=== PATIENT | male | born 1935 | race African-American/Black ===

== ENCOUNTER 2017-05-22 10:59 | Outpatient (CLI) | payer MEDICARE, OTHER ==
[~2017-05-22 10:59] MED LIST: ALBUTEROL2.5 MG/3 M HHN; AMBIEN5 MG PO; ASPIRIN81 MG ORAL; BUDESONIDE0.5 MG/2 M HHN; COMBIVENT INH14.7 GM INH; COMBIVENT2 PUFFS INH; FERROUS SULFAT325 MG PO; GLUCOTROL XL5 MG PO; LEVAQUIN750 MG ORAL; NASONEX17 GM NASAL; OMEPRAZOLE20 M2 ORAL; OMEPRAZOLE20 M2 PO; PEPCID20 MG PO; PREDNISONE50 MG ORAL; SIMVASTATIN80 MG PO; SPIRIVA18 MCG INH; TRULICITY0.75 MG/0. SQ; TUDORZA PRESS400 MCG INH; VICTOZA 2-0.6 MG/0.1 SQ; astepro NS; brovana PO; daliresp PO
--- NOTE | 2017-05-22 12:25 | Diagnostic Imaging Report ---
Indication: Cough Comparison: 04/02/15 2 views of the chest obtained. Post disease and parenchymal scarring in the upper lobes again noted. Generalized hyperinflation is present. There is no change compared to baseline. The heart is normal in size. Bones are osteopenic. Impression: Bullous emphysema/COPD. No change
== END 2017-05-22 12:59 | disposition home or self-care (01) ==
LOC: RAD 10:59
DX: R05 Cough (principal); J44.9 Chronic obstructive pulmonary disease, unspecified; J43.9 Emphysema, unspecified; M85.80 Other specified disorders of bone density and structure, unspecified site
CPT/HCPCS: 71020

== ENCOUNTER 2017-11-19 14:31 | Outpatient (CLI) | payer MEDICARE, OTHER ==
--- NOTE | 2017-11-19 15:12 | Diagnostic Imaging Report ---
Indication: Reason For Exam: COUGH Technique: One view of the chest Comparison: 05/22/2017 Findings: Again demonstrated is extensive bilateral upper lobe scarring, architectural distortion, and bullous change. Bilateral right greater than left opacities appear somewhat more prominent on the current study, but this is probably due to technical differences. Suspect these are probably chronic due to COPD changes. No definite acute infiltrates. Normal heart size. Impression: Evidence of bullous COPD Right greater than left prominent interstitial opacities are probably on the basis of COPD/fibrosis changes; element of acute interstitial edema or infiltrate not completely excludable but less likely No focal airspace consolidation
== END 2017-11-19 16:31 | disposition home or self-care (01) ==
LOC: RAD 14:31
DX: R05 Cough (principal); J44.9 Chronic obstructive pulmonary disease, unspecified
CPT/HCPCS: 71046

== ENCOUNTER 2018-05-11 20:40 | Inpatient (IN) | payer MEDICARE, OTHER ==
[~2018-05-11] VITALS: Ht 177.8 cm; Wt 82.6 kg
[2018-05-11] MEDS ORDERED: Solu-MEDROL 125mg Inj IVP ONE (21:00)
[2018-05-11] MEDS ORDERED: Albuterol ud Inhalation HHN ONE (21:00)
[2018-05-11] MEDS ORDERED: Ipratropium 0.02% Inh Soln 2.5ml UD HHN ONE (21:00)
[2018-05-11 21:19] LABS: BASOPHILS % (AUTO) 1.2 % (0.0-2.0); EOSINOPHILS % (AUTO) 0.5 % (0.0-3.0); HEMATOCRIT 44.4 % (42.0-52.0); HEMOGLOBIN 14.4 G/DL (14.2-18.0); LYMPHOCYTES % (AUTO) 13.1 % (20.0-45.0); MEAN CORPUSCULAR VOLUME 89 FL (80-99); MONOCYTES % (AUTO) 6.6 % (1.0-10.0); NEUTROPHILS % (AUTO) 78.6 % (45.0-75.0); PLATELET COUNT 169 K/UL (150-450); RED BLOOD COUNT 4.99 M/UL (4.70-6.10); RED CELL DISTRIBUTION WIDTH 12.1 % (11.6-14.8); WHITE BLOOD COUNT 16.8 K/UL (4.8-10.8)
[2018-05-11] MEDS ORDERED: cefTRIAXone 1 GM in NS 55 ML IVPB ONE (21:30)
[2018-05-11 21:37] LABS: ANION GAP 9 mmol/L (5-15); BLOOD UREA NITROGEN 12 mg/dL (7-18); CALCIUM 9.6 MG/DL (8.5-10.1); CARBON DIOXIDE 28 MMOL/L (21-32); CHLORIDE 101 MMOL/L (98-107); CREATININE 1.2 MG/DL (0.55-1.30); POTASSIUM 4.3 MMOL/L (3.5-5.1); SODIUM 138 MMOL/L (136-145)
[2018-05-11 21:50] LABS: ALANINE AMINOTRANSFERASE 27 U/L (12-78); ALBUMIN 3.7 G/DL (3.4-5.0); ALBUMIN/GLOBULIN RATIO 0.8 (1.0-2.7); ALKALINE PHOSPHATASE 111 U/L (46-116); ASPARTATE AMINO TRANSFERASE 18 U/L (15-37); BILIRUBIN,TOTAL 0.3 MG/DL (0.2-1.0); CKMB 1.2 NG/ML (0.0-3.6); CREATINE KINASE 88 U/L (26-308)
--- NOTE | 2018-05-11 22:23 | Emergency Room Report ---
History of Present Illness General Chief Complaint: Dyspnea/Respdistress Source: Patient, Family Member Present Illness HPI This is an 82-year-old male who has a history of heavy smoking. He has a history of COPD and currently on oxygen at home. He presents with chief complaint of shortness of breath. Onset today. He also complaining of sore throat. No nausea no vomiting. No fever or chills. No chest pain. No relief with his oxygenation and inhalers. Worse with exertion. Better with rest. Allergies: Coded Allergies: No Known Allergies (Verified , 09/14/07) Patient History Past Medical History: see triage record, old chart reviewed, COPD Past Surgical History: other Pertinent Family History: none Social History: Denies: smoking - History of heavy smoking Immunizations: other Reviewed Nursing Documentation: PMH: Agreed; PSxH: Agreed Nursing Documentation-PMH Hx Cardiac Problems: Yes - hypertensive heart disease Hx Hypertension: Yes Hx Pacemaker: No - EMPHYSEMA Hx Asthma: Yes Hx COPD: Yes Hx Diabetes: Yes Hx Cancer: No Hx Gastrointestinal Problems: Yes Hx Neurological Problems: No Review of Systems Eye: Denies: eye pain, blurred vision ENT: Denies: ear pain, nose congestion, throat swelling Respiratory: Reports: cough, shortness of breath Cardiovascular: Denies: chest pain, palpitations Gastrointestinal: Denies: abdominal pain, diarrhea, nausea, vomiting Musculoskeletal: Denies: back pain, joint pain Skin: Denies: rash Neurological: Denies: headache, numbness Endocrine: Denies: increased thirst, increased urine Hematologic/Lymphatic: Denies: easy bruising All Other Systems: negative except mentioned in HPI Physical Exam Vital Signs Date Time Temp Pulse Resp B/P (MAP) Pulse Ox O2 Delivery O2 Flow Rate FiO2 05/11/18 20:42 98.8 119 22 142/71 89 Nasal Cannula 4.0 98.8 05/11/18 21:11 36 vitals with tachycardia and hypoxia Sp02 EP Interpretation: abnormal General Appearance: moderate distress, thin, Chronically Ill Head: normocephalic, atraumatic Eyes: bilateral eye PERRL, bilateral eye EOMI ENT: hearing grossly normal, normal pharynx Neck: full range of motion, supple, no meningismus Respiratory: chest non-tender, respiratory distress, decreased breath sounds, accessory muscle use, wheezing Cardiovascular #1: regular rate, rhythm, no murmur, tachycardia Gastrointestinal: normal bowel sounds, non tender, no mass, no organomegaly, no bruit, non-distended Musculoskeletal: back normal, gait/station normal, normal range of motion Neurologic: alert, oriented x3 Psychiatric: mood/affect normal Skin: warm/dry Procedures Critical Care Time Critical Care Time Critical care is mandated in this patient who presented with respiratory distress from COPD. Patient require my urgent intervention to attenuate the risks of respiratory collapse which may lead to cardiovascular collapse and . Critical care time is 35 minutes excluding any reportable procedure. Critical care time included evaluation, multiple reevaluation, looking at old charts, interpreting laboratory and diagnostic data, discussing case with patient and family and consultants, and charting. Medical Decision Making Diagnostic Impression: Primary Impression: Respiratory distress Additional Impression: COPD exacerbation ER Course Patient resents with respiratory distress secondary to COPD exacerbation. He required nebulizer treatment and I started antibiotics to cover for atypical pneumonia. He said he felt better. He still slightly dyspneic so will admit for further treatment and antibiotics and IV fluid. I discussed the case with Dr. Castillo who will admit for Dr. Beebe. Lab Results Impression labs with leukocytosis EKG Diagnostic Results Rate: tachycardiac Rhythm: NSR ST Segments: no acute changes Rhythm Strip Diag. Results Rhythm Strip Time: 22:22 EP Interpretation: yes Rate: 110 Rhythm: NSR, no PVC's, no ectopy Chest X-Ray Diagnostic Results Chest X-Ray Diagnostic Results : Chest X-Ray Ordered: Yes # of Views/Limited/Complete: 1 View Indication: Shortness of Breath EP Interpretation: Yes Interpretation: no effusion, no pneumothorax, other - Emphysematous changes. Atelectasis. Impression: Other - copd Electronically Signed by: Hollis Espitia MD Last Vital Signs Date Time Temp Pulse Resp B/P (MAP) Pulse Ox O2 Delivery O2 Flow Rate FiO2 05/11/18 21:29 122 24 98 Nasal Cannula 2.0 28 05/11/18 20:42 98.8 142/71 98.8 Status: improved Disposition: ADMITTED INPATIENT Condition: Serious Referrals: Loki Beebe MD (PCP) HOLLIS ESPITIA M.D. May 11, 2018 22:23
[2018-05-11 22:24] VITALS: BP 141/77
[2018-05-11] MEDS ORDERED: Azithromycin 500 MG in NS 275 ML IV ONE (22:30)
[2018-05-11] MEDS ORDERED: cefTRIAXone 1 GM in D5W 55 ML IVPB SCH (22:45)
[2018-05-11] MEDS ORDERED: Milk of Magnesia 30ml Ud ORAL PRN (22:45)
[2018-05-11 23:16] VITALS: BP 134/90
[2018-05-12] MEDS: Albuterol/Ipratropium 3ml neb HHN SCH ×7 (00:09→23:00)
[2018-05-12] MEDS: Solu-MEDROL 125mg Inj IVP SCH ×4 (00:13→21:55)
[2018-05-12] MEDS: Heparin 5000 units/ml inj SUBQ SCH ×3 (00:14→20:40)
[2018-05-12] MEDS: Zolpidem 5mg tab ORAL PRN (00:14)
[2018-05-12] MEDS: Atorvastatin 20mg tab ORAL SCH ×2 (00:15→20:39)
[2018-05-12 04:00] VITALS: BP 108/54
[2018-05-12] MEDS: NovoLOG Insulin Flexpen SUBQ SCH ×4 (06:13→20:41)
[2018-05-12 07:57] LABS: HEMATOCRIT 38.1 % (42.0-52.0); MEAN CORPUSCULAR VOLUME 88 FL (80-99); PLATELET COUNT 149 K/UL (150-450); RED BLOOD COUNT 4.34 M/UL (4.70-6.10); RED CELL DISTRIBUTION WIDTH 11.7 % (11.6-14.8); WHITE BLOOD COUNT 17.8 K/UL (4.8-10.8)
[2018-05-12 08:00] VITALS: BP 109/65
[2018-05-12 08:42] LABS: ANION GAP 11 mmol/L (5-15); BLOOD UREA NITROGEN 12 mg/dL (7-18); CARBON DIOXIDE 25 MMOL/L (21-32); CHLORIDE 104 MMOL/L (98-107); CREATININE 1.2 MG/DL (0.55-1.30); SODIUM 140 MMOL/L (136-145)
[2018-05-12 08:46] LABS: ALANINE AMINOTRANSFERASE 21 U/L (12-78); ALBUMIN/GLOBULIN RATIO 0.8 (1.0-2.7); ALKALINE PHOSPHATASE 79 U/L (46-116); ASPARTATE AMINO TRANSFERASE 13 U/L (15-37); BILIRUBIN,TOTAL 0.3 MG/DL (0.2-1.0)
[2018-05-12] MEDS: Aspirin Baby 81mg ORAL SCH (09:44)
[2018-05-12] MEDS: Levofloxacin 500mg tab ORAL SCH (09:44)
[2018-05-12] MEDS: Flonase Nasal Inhaler 16gm NASAL SCH (09:45)
--- NOTE | 2018-05-12 11:34 | Diagnostic Imaging Report ---
Indication: Dyspnea Comparison: 11/19/2017 A single view chest radiograph was obtained. Findings: Bullous changes with marked coarse scarring of the lungs again demonstrated without significant change in configuration since the last examination. Heart size is stable. IMPRESSION: Chronic lung disease with scarring and emphysema
[2018-05-12 12:00] VITALS: BP 109/59
--- NOTE | 2018-05-12 14:46 | History and Physical Report ---
DATE OF ADMISSION: 05/11/2018 CHIEF COMPLAINT: COPD exacerbation. HISTORY OF PRESENT ILLNESS: The patient is a pleasant 82-year-old male. He has a history of severe COPD, who presented with complaints of one week of progressive shortness of breath. According to the patient, he has had worsening shortness of breath. He did attend some type of a family function where there were apparently some people who were ill. He had a sore throat for several days. In addition, there is worsening shortness of breath, presented to the emergency room. He is noted to be having severe COPD exacerbation. He was tachycardic and tachypneic. He was started on intravenous steroids and he is now admitted for further evaluation and treatment. PAST MEDICAL HISTORY: As above. PAST SURGICAL HISTORY: None. CURRENT MEDICATIONS: Reconciled and reviewed. ALLERGIES: None. FAMILY HISTORY: None. SOCIAL HISTORY: The patient is a prior smoker. No alcohol. No drugs. REVIEW OF SYSTEMS: GENERAL: No fever or chills. HEENT: No headaches or visual changes. Positive sore throat. CARDIOPULMONARY: No chest pain. Positive shortness of breath and wheezing. GASTROINTESTINAL: No nausea or vomiting. GENITOURINARY: No urgency or frequency. MUSCULOSKELETAL: No joint pain or swelling. NEUROLOGIC: No evidence of seizures. PHYSICAL EXAMINATION: VITAL SIGNS: Temperature 98.3, pulse 95, respirations 20, and blood pressure 108/54. GENERAL: The patient is a well-developed male, in no apparent distress. He is sitting upright and able to speak in full sentences. There is no distress noted. NECK: Supple. There is no jugular venous distention. HEART: Regular rate and rhythm. LUNGS: Significant diminished breath sounds with scattered wheezes. ABDOMEN: Soft, nontender, and nondistended. EXTREMITIES: Without clubbing, cyanosis, or edema. LABORATORY AND DIAGNOSTIC DATA: White count was 17,000, hemoglobin 14, hematocrit 44, and platelets of 169. Sodium 138, potassium 4.3, creatinine was 1.2. Troponin was negative. Chest x-ray report was clear. ASSESSMENT: This is a pleasant male with a history of severe COPD, admitted with complaints of COPD exacerbation. PROBLEMS: 1. COPD exacerbation. 2. Respiratory failure. 3. Possible pneumonia and pharyngitis. PLAN: 1. Intravenous steroids. 2. Respiratory treatments [id number]. 3. Empiric antibiotic therapy. 4. Consider repeat chest x-ray, DVT and stress ulcer prophylaxis. 5. Pulmonary and Cardiology evaluations were obtained. Geovanni Castillo M.D. DR: KENROY JOB#: [id number] CC:
--- NOTE | 2018-05-12 15:00 | Cardiology Report ---
APPROVED REPORT EKG Measurement Heart [id number] Sinus tachycardia Low voltage QRS Nonspecific ST and T wave abnormality Abnormal ECG
[2018-05-12 16:00] VITALS: BP 111/60
[2018-05-12 20:00] VITALS: BP 115/58
[2018-05-12] MEDS: cefTRIAXone 1 GM in D5W 110 ML IVPB SCH (21:56)
[2018-05-13] VITALS: BP 115/58
--- NOTE | 2018-05-13 01:01 | Consultation ---
DATE OF CONSULTATION: 05/12/2018 CARDIOLOGY CONSULTATION CONSULTING PHYSICIAN: Jake Zazueta M.D. REQUESTING PHYSICIAN: Geovanni Castillo M.D. REASON FOR CONSULTATION: Tachycardia. HISTORY OF PRESENT ILLNESS: This is an 82-year-old male. He presented to the emergency room late last evening with increasing congestion and shortness of breath. He is on chronic oxygen therapy at home and uses bronchodilators regularly, but did not improve. He noted shortness of breath worsening with exertion and better at rest. He noted a rapid heart rate, but no dizziness or loss of consciousness. I have been asked to assist with cardiovascular care. PAST MEDICAL HISTORY: 1. Chronic obstructive pulmonary disease. 2. Hypertensive heart disease. 3. Type 2 diabetes mellitus. 4. Degenerative disk disease. 5. Osteoarthritis. 6. Prostatic hypertrophy. MEDICATIONS: Prior to admission, reviewed and reconciled. ALLERGIES: None. FAMILY HISTORY: Noncontributory. SOCIAL HISTORY: Greater than [id number] smoker, presently nonsmoker, however, no alcohol or substance abuse. REVIEW OF SYSTEMS: Performed 10-point and all systems negative other than noted above. PHYSICAL EXAMINATION: VITAL SIGNS: Afebrile. Blood pressure 142/71, pulse 119, and respirations 22 in the emergency room. Today, vitals, blood pressure 111/60, pulse 81, and respirations 20. Oxygen saturation on room air is 89% and on 3 liters is 95%. There is some accessory muscle use. NECK: Jugular venous pressure normal. LUNGS: With diminished breath sounds and expiratory wheezes. CARDIAC: Regular rhythm and rate. Normal S1, S2 with a fourth heart sound. ABDOMEN: Soft and nontender. EXTREMITIES: Without edema. DIAGNOSTIC DATA: EKG, sinus tachycardia at 119, low voltage nonspecific ST-T changes. LABORATORY DATA: Notable for BUN 12, creatinine 1.2, potassium 4.3, and glucose 174. Troponin negative x2. Albumin 3.7. White count 16.8 and hemoglobin 14.4. Chest x-ray, interstitial scarring and hyperinflation. IMPRESSION: 1. Secondary sinus tachycardia. 2. Acute respiratory insufficiency. 3. Paroxysmal bronchospasm. 4. Chronic obstructive pulmonary disease with acute exacerbation. 5. Leukocytosis. 6. Chronic hypoxia. 7. Type 2 diabetes mellitus with hyperglycemia. 8. Possible pneumonia. PLAN: 1. Cardiac monitoring. 2. Inhaled bronchodilators with cautions to limit the use of albuterol. 3. Volume resuscitation. 4. Intravenous steroids. 5. Empiric antibiotics. 6. No role for antiarrhythmics. 7. Insulin coverage by sliding scale. 8. DVT and stress ulcer prophylaxes. 9. Venous duplex to assess for possible source of pulmonary emboli. Jake Zazueta M.D. DR: GEE JOB#: [id number] CC:
[2018-05-13] MEDS: Zolpidem 5mg tab ORAL PRN (01:56)
[2018-05-13] MEDS: Albuterol/Ipratropium 3ml neb HHN SCH ×6 (03:34→23:04)
[2018-05-13 04:00] VITALS: BP 122/72
[2018-05-13] MEDS: Solu-MEDROL 125mg Inj IVP SCH ×3 (06:00→20:36)
[2018-05-13] MEDS: NovoLOG Insulin Flexpen SUBQ SCH ×4 (06:36→20:39)
[2018-05-13 08:00] VITALS: BP_SYST 123; BP_SYST 127; BP_DIAS 67
[2018-05-13 08:21] LABS: ANION GAP 6 mmol/L (5-15); BLOOD UREA NITROGEN 18 mg/dL (7-18); CARBON DIOXIDE 28 MMOL/L (21-32); CHLORIDE 105 MMOL/L (98-107); CREATININE 1.1 MG/DL (0.55-1.30); POTASSIUM 3.9 MMOL/L (3.5-5.1); SODIUM 139 MMOL/L (136-145)
[2018-05-13] MEDS: Levofloxacin 500mg tab ORAL SCH (08:30)
[2018-05-13] MEDS: Heparin 5000 units/ml inj SUBQ SCH ×2 (08:31→20:37)
[2018-05-13] MEDS: Aspirin Baby 81mg ORAL SCH (08:31)
[2018-05-13] MEDS: Flonase Nasal Inhaler 16gm NASAL SCH (08:31)
--- NOTE | 2018-05-13 08:47 | General Progress Note ---
Assessment/Plan Problem List: (1) COPD exacerbation ICD Codes: J44.1 - COPD exacerbation SNOMED: 592889072 (2) Respiratory distress ICD Codes: R06.03 - Acute respiratory distress SNOMED: 574760233 Status: stable Assessment/Plan wean steroids abx resp rx repeat labs Subjective ROS Limited/Unobtainable: No Constitutional: Reports: malaise, weakness HEENT: Reports: no symptoms Cardiovascular: Reports: no symptoms Respiratory: Reports: cough, shortness of breath Gastrointestinal/Abdominal: Reports: no symptoms Genitourinary: Reports: no symptoms Neurologic/Psychiatric: Reports: no symptoms Endocrine: Reports: no symptoms Hematologic/Lymphatic: Reports: no symptoms Allergies: Coded Allergies: No Known Allergies (Verified , 09/14/07) All Systems: reviewed and negative except above Subjective no events. decreased sob. decreased wheezing. no chest pain / Objective Last 24 Hour Vital Signs Date Time Temp Pulse Resp B/P (MAP) Pulse Ox O2 Delivery O2 Flow Rate FiO2 05/13/18 07:55 89 20 95 Nasal Cannula 2.0 05/13/18 07:49 88 18 92 Nasal Cannula 2.0 05/13/18 07:49 Nasal Cannula 2.0 05/13/18 07:49 92 Nasal Cannula 2.0 05/13/18 04:00 97.2 92 20 122/72 96 Nasal Cannula 3.0 97.2 05/13/18 04:00 95 05/13/18 03:44 91 20 98 Nasal Cannula 2.0 05/13/18 03:34 90 18 95 Nasal Cannula 2.0 05/13/18 00:00 101 05/13/18 00:00 97.0 89 20 115/58 97 Nasal Cannula 3.0 97.0 05/12/18 23:21 84 20 96 Nasal Cannula 2.0 05/12/18 23:01 85 20 95 Nasal Cannula 2.0 05/12/18 20:00 99 05/12/18 20:00 97.0 89 20 115/58 97 Nasal Cannula 3.0 97.0 05/12/18 19:33 87 20 96 Nasal Cannula 2.0 05/12/18 19:22 Nasal Cannula 2.0 05/12/18 19:22 91 Nasal Cannula 2.0 05/12/18 19:22 86 20 91 Nasal Cannula 2.0 28 05/12/18 16:00 97.5 95 20 111/60 95 Nasal Cannula 3.0 97.5 05/12/18 16:00 81 05/12/18 15:29 88 20 95 Nasal Cannula 2.0 28 05/12/18 15:21 89 20 Nasal Cannula 2.0 28 05/12/18 12:00 84 05/12/18 12:00 97.6 87 20 109/59 94 Nasal Cannula 3.0 97.6 05/12/18 11:23 96 20 Nasal Cannula 2.0 28 05/12/18 11:12 95 20 Nasal Cannula 2.0 28 Intake and Output 05/12/18 05/13/18 19:00 07:00 Intake Total 480 ml Balance 480 ml Intake Oral 480 ml # Voids 2 2 Laboratory Tests 05/13/18 06:17: Sodium Level 139, Potassium Level 3.9, Chloride Level 105, Carbon Dioxide Level 28, Anion Gap 6, Blood Urea Nitrogen 18, Creatinine 1.1, Estimat Glomerular Filtration Rate , Glucose Level 204H, Calcium Level 9.0, Pro-B-Type Natriuretic Peptide 564H, Thyroid Stimulating Hormone (TSH) 0.581 Height (Feet): 5 Height (Inches): 10.00 Weight (Pounds): 182 General Appearance: WD/WN, alert Neck: supple Cardiovascular: regular rhythm Respiratory/Chest: chest wall non-tender, lungs clear, no respiratory distress , no accessory muscle use, expiratory wheezing Abdomen: normal bowel sounds, non tender, soft Edema: no edema noted Arm (L), no edema noted Arm (R), no edema noted Leg (L), no edema noted Leg (R), no edema noted Pedal (L), no edema noted Pedal (R), no edema noted Generalized Geovanni Castillo MD May 13, 2018 08:47
[2018-05-13 12:00] VITALS: BP 135/82
[2018-05-13 16:00] VITALS: BP 138/86
[2018-05-13 20:00] VITALS: BP 123/79
[2018-05-13] MEDS: Atorvastatin 20mg tab ORAL SCH (20:36)
[2018-05-13] MEDS: cefTRIAXone 1 GM in D5W 110 ML IVPB SCH (21:07)
[2018-05-13] MEDS ORDERED: PREDNISONE10 MG ORAL (21:15)
--- NOTE | 2018-05-13 23:16 | Progress Note ---
DATE: 05/13/2018 CARDIOLOGY PROGRESS NOTE SUBJECTIVE: The patient has less congestion and shortness of breath. No chest pain noted. OBJECTIVE: VITAL SIGNS: Blood pressure 122/72, pulse 93, respiratory rate 20, afebrile, and oxygen saturation on 2 liters is 92% to 96%. HEENT: Conjunctivae pink. Oropharynx clear. No thrush. NECK: Supple. LUNGS: With diminished breath sounds. Few rhonchi and expiratory wheezes. CARDIAC: Regular rhythm and rate. Normal S1 and S2 with a fourth heart sound. ABDOMEN: Soft and nontender. EXTREMITIES: Without edema. LABORATORY AND DIAGNOSTIC DATA: White count 17.8 on steroids and hemoglobin 13. Potassium 3.9, BUN 18, creatinine 1.1 and glucose 204. Pro-natriuretic peptide 564. Chest x-ray yesterday revealed chronic scarring and emphysematous lungs. Cultures are negative. IMPRESSION: 1. COPD with acute exacerbation. 2. Paroxysmal bronchospasm. 3. Acute on chronic diastolic congestive heart failure, likely mostly right-sided. 4. Secondary sinus tachycardia, improved. 5. Chronic hypoxia with exacerbation. 6. Type 2 diabetes mellitus with hyperglycemia, on steroid. 7. Possible pneumonia. PLAN: 1. Repeat chest x-ray. 2. Continue high steroids with taper as able. 3. Inhaled bronchodilators. 4. Avoid positive fluid balance. 5. DVT prophylaxis. 6. Antiplatelet therapy. Jake Zazueta M.D. DR: JOSEFA JOB#: [id number] CC:
[2018-05-14] VITALS: BP 154/83
[2018-05-14] MEDS: Zolpidem 5mg tab ORAL PRN (00:43)
[2018-05-14] MEDS: Albuterol/Ipratropium 3ml neb HHN SCH ×2 (03:18→07:36)
[2018-05-14 04:00] VITALS: BP_SYST 133; BP_SYST 136; BP_DIAS 71; BP_DIAS 77
[2018-05-14] MEDS: NovoLOG Insulin Flexpen SUBQ SCH (05:56)
[2018-05-14 07:40] LABS: HEMATOCRIT 38.8 % (42.0-52.0); HEMOGLOBIN 12.7 G/DL (14.2-18.0); MEAN CORPUSCULAR VOLUME 87 FL (80-99); PLATELET COUNT 170 K/UL (150-450); RED BLOOD COUNT 4.45 M/UL (4.70-6.10); RED CELL DISTRIBUTION WIDTH 11.6 % (11.6-14.8); WHITE BLOOD COUNT 13.5 K/UL (4.8-10.8)
[2018-05-14 07:52] LABS: ALANINE AMINOTRANSFERASE 30 U/L (12-78); ALBUMIN 2.8 G/DL (3.4-5.0); ALBUMIN/GLOBULIN RATIO 0.7 (1.0-2.7); ALKALINE PHOSPHATASE 68 U/L (46-116); ANION GAP 9 mmol/L (5-15); ASPARTATE AMINO TRANSFERASE 26 U/L (15-37); BILIRUBIN,TOTAL 0.2 MG/DL (0.2-1.0); BLOOD UREA NITROGEN 17 mg/dL (7-18); CALCIUM 9.3 MG/DL (8.5-10.1); CARBON DIOXIDE 27 MMOL/L (21-32); CHLORIDE 103 MMOL/L (98-107); CREATININE 1.1 MG/DL (0.55-1.30); POTASSIUM 3.9 MMOL/L (3.5-5.1); SODIUM 139 MMOL/L (136-145)
[2018-05-14 08:00] VITALS: BP 136/83
[2018-05-14] MEDS: Heparin 5000 units/ml inj SUBQ SCH (09:00)
[2018-05-14] MEDS: Aspirin Baby 81mg ORAL SCH (09:45)
[2018-05-14] MEDS: Levofloxacin 500mg tab ORAL SCH (09:45)
[2018-05-14] MEDS: Solu-MEDROL 125mg Inj IVP SCH (09:45)
[2018-05-14] MEDS: Flonase Nasal Inhaler 16gm NASAL SCH (10:00)
[2018-05-14] MEDS ORDERED: Tubing IV Secondary IV ONE ×2 (10:39)
[2018-05-14] MEDS ORDERED: NS 275ml ONE (10:39)
--- NOTE | 2018-05-14 12:28 | Diagnostic Imaging Report ---
Indication: Shortness of breath Technique: One view of the chest Comparison: 05/11/2018 Findings: Bilateral upper lobe scarring, bullous change, and volume loss are again demonstrated. Reticular opacities throughout the bilateral mid and lower lungs are again demonstrated. The heart size is normal. No definite acute infiltrates or effusions or congestion. Findings are unchanged Impression: Extensive chronic appearing changes, as described, stable over 3 days
--- NOTE | 2018-05-14 23:45 | Discharge Summary ---
DATE OF ADMISSION: 05/11/2018 DATE OF DISCHARGE: 05/14/2018 ADMISSION DIAGNOSES: 1. Chronic obstructive pulmonary disease exacerbation. 2. History of diabetes. 3. Hypertension. DISCHARGE DIAGNOSES: 1. Chronic obstructive pulmonary disease exacerbation. 2. History of diabetes. 3. Hypertension. HOSPITAL COURSE: The patient is admitted with complaints of shortness of breath and COPD exacerbation. His x-ray showed only chronic scarring. He received antibiotics for bronchitis. He received IV steroids. His shortness of breath improved with steroid therapy and on discharge, he was well. The patient will be discharged home on a slow steroid taper. He has been instructed to follow up with his aerophysicist next week. DISCHARGE MEDICATIONS: Please see discharge medication list for discharge medications. DIET: Cardiac diabetic diet. ACTIVITY: Ad-kirby. Geovanni Castillo M.D. DR: CEHYANNE JOB#: [id number] CC:
--- NOTE | 2018-05-15 00:01 | Progress Note ---
DATE: 05/14/2018 CARDIOLOGY PROGRESS NOTE SUBJECTIVE: The patient has less shortness of breath. He is comfortable. He continues to have sinus rhythm with a few episodes of sinus tachycardia. He remains with oxygen saturation of 93% to 98% on 2 liters nasal cannula. PHYSICAL EXAMINATION: VITAL SIGNS: Blood pressure 133/77, pulse 96, respiratory rate 18 to 22, afebrile. LUNGS: Diminished breath sounds. HEART: Regular rhythm and rate. Normal S1 and S2. ABDOMEN: Soft. No edema. LABORATORY AND DIAGNOSTIC DATA: Chest x-ray, unchanged with chronic interstitial changes. White count 13.5 and hemoglobin 12.7. BUN 17 and creatinine 1.1. Albumin 2.8. Potassium 3.9. IMPRESSION: 1. Acute bronchospasm, resolved. 2. Chronic obstructive pulmonary disease with acute exacerbation improved. 3. Right-sided acute on chronic diastolic congestive heart failure, now stabilized. 4. Secondary sinus tachycardia, resolving. 5. Chronic hypoxia on oxygen. PLAN: 1. Steroid taper. 2. Inhaled bronchodilators. 3. No additional cardiovascular therapy presently. 4. Stable for [facility]. 5. Transfer to complete recovery. Jake Zazueta M.D. DR: Kimo JOB#: [id number] CC:
== END 2018-05-14 10:40 | disposition home or self-care (01) | DRG 190 ==
LOC: EMR 21:11 → 2E 22:15 → EDBEDREQ 22:20 → EDBEDREQSVC 22:20 → EDBEDREQTM 22:20 → EDBEDREQ 22:30
DX: J44.1 Chronic obstructive pulmonary disease with (acute) exacerbation (principal); J96.90 Respiratory failure, unspecified, unspecified whether with hypoxia or hypercapnia; I50.33 Acute on chronic diastolic (congestive) heart failure; I11.0 Hypertensive heart disease with heart failure; Z87.891 Personal history of nicotine dependence; M19.90 Unspecified osteoarthritis, unspecified site; N40.0 Benign prostatic hyperplasia without lower urinary tract symptoms; R09.02 Hypoxemia; E11.65 Type 2 diabetes mellitus with hyperglycemia; J40 Bronchitis, not specified as acute or chronic
CPT/HCPCS: 36415; 71045; 71046; 80048; 80053; 82550; 82553; 82962; 83605; 83880; 84443; 84484; 85007; 85025; 87040; 93005; 93306; 94640; 94644; 94760; 99291; J1815; J7620

== ENCOUNTER 2018-10-08 13:31 | Inpatient (IN) | payer MEDICARE, OTHER ==
[~2018-10-08] VITALS: Ht 172.7 cm; Wt 79.8 kg
[~2018-10-08 13:31] MED LIST changes: +PREDNISONE10 MG ORAL
[2018-10-08 15:00] VITALS: BP 114/83
--- NOTE | 2018-10-08 15:19 | Diagnostic Imaging Report ---
Indication: Shortness of breath Technique: One view of the chest Comparison: none Findings: Fairly extensive scarring is seen in the right upper lobe. Bullous changes are seen in the upper lobes bilaterally. The heart size is normal. No definite infiltrates or effusions. Impression: Extensive scarring in the right upper lobe. Underlying mass lesion or infiltrate not completely excludable. No definite acute process otherwise
[2018-10-08 15:37] LABS: BASOPHILS % (AUTO) 0.8 % (0.0-2.0); EOSINOPHILS % (AUTO) 0.4 % (0.0-3.0); HEMATOCRIT 40.2 % (42.0-52.0); HEMOGLOBIN 13.2 G/DL (14.2-18.0); LYMPHOCYTES % (AUTO) 13.8 % (20.0-45.0); MEAN CORPUSCULAR VOLUME 85 FL (80-99); MONOCYTES % (AUTO) 10.1 % (1.0-10.0); NEUTROPHILS % (AUTO) 74.8 % (45.0-75.0); PLATELET COUNT 210 K/UL (150-450); RED BLOOD COUNT 4.73 M/UL (4.70-6.10); RED CELL DISTRIBUTION WIDTH 11.3 % (11.6-14.8); WHITE BLOOD COUNT 10.7 K/UL (4.8-10.8)
[2018-10-08 15:49] LABS: ANION GAP 5 mmol/L (5-15); BLOOD UREA NITROGEN 12 mg/dL (7-18); CALCIUM 9.5 MG/DL (8.5-10.1); CARBON DIOXIDE 33 MMOL/L (21-32); CHLORIDE 101 MMOL/L (98-107); CREATININE 1.2 MG/DL (0.55-1.30); POTASSIUM 3.9 MMOL/L (3.5-5.1); SODIUM 139 MMOL/L (136-145)
--- NOTE | 2018-10-08 15:51 | Emergency Room Report ---
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 has had low-grade fever Symptoms ongoing for the past 2 days Patient denies any chest pain denies any recent travel He has significant history of emphysema and COPD Is on home oxygenation Denies any focal weakness Allergies: Coded Allergies: No Known Allergies (Verified , 09/14/07) Patient History Pertinent Family History: none Reviewed Nursing Documentation: PMH: Agreed; PSxH: Agreed Nursing Documentation-PMH Hx Cardiac Problems: No Hx Hypertension: No Hx Pacemaker: No Hx Asthma: No Hx COPD: No - enphysema 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 Hx Gastrointestinal Problems: No Hx Dialysis: No History Of Psychiatric Problem: No Hx Neurological Problems: No Hx Cerebrovascular Accident: No Review of Systems All Other Systems: negative except mentioned in HPI Physical Exam Vital Signs Date Time Temp Pulse Resp B/P (MAP) Pulse Ox O2 Delivery O2 Flow Rate FiO2 10/08/18 14:31 98.4 101 24 132/69 79 Room Air 10/08/18 15:00 2.0 10/08/18 15:00 99 Sp02 EP Interpretation: reviewed, normal General Appearance: well appearing, no apparent distress Head: normocephalic, atraumatic Eyes: bilateral eye PERRL, bilateral eye EOMI ENT: hearing grossly normal, normal pharynx, TMs + canals normal, uvula midline Neck: full range of motion, supple, no meningismus, no bony tend Respiratory: no retraction, no accessory muscle use, wheezing - Bilaterally crackles as well Cardiovascular #1: normal peripheral pulses, regular rate, rhythm, no edema, no gallop, no JVD, no murmur Gastrointestinal: normal bowel sounds, non tender, soft, no mass, no organomegaly, non-distended, no guarding, no hernia, no pulsatile mass, no rebound Genitourinary: no CVA tenderness Musculoskeletal: normal inspection Neurologic: oriented x3, responsive, 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 executive chef III-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 nml as tested, motor strength/ tone normal, sensory intact Psychiatric: mood/affect normal Skin: normal color, no rash, warm/dry, palpation normal Lymphatic: normal inspection, no adenopathy Medical Decision Making Diagnostic Impression: Primary Impression: COPD exacerbation Additional Impression: Dyspnea ER Course Patient is a fairly complex patient with multiple differential to consideration including but not limited to cardiac cardiopulmonary and vascular emergencies Patient's x-ray shows findings that are potentially chronic Patient has done better with breathing treatments and steroids still feels uncomfortable and admitted for further care Labs Test 10/08/18 15:22 10/08/18 15:37 White Blood Count 10.7 K/UL (4.8-10.8) Red Blood Count 4.73 M/UL (4.70-6.10) Hemoglobin 13.2 G/DL (14.2-18.0) Hematocrit 40.2 % (42.0-52.0) Mean Corpuscular Volume 85 FL (80-99) Mean Corpuscular Hemoglobin 27.9 PG (27.0-31.0) Mean Corpuscular Hemoglobin Concent 32.8 G/DL (32.0-36.0) Red Cell Distribution Width 11.3 % (11.6-14.8) Platelet Count 210 K/UL (150-450) Mean Platelet Volume 6.3 FL (6.5-10.1) Neutrophils (%) (Auto) 74.8 % (45.0-75.0) Lymphocytes (%) (Auto) 13.8 % (20.0-45.0) Monocytes (%) (Auto) 10.1 % (1.0-10.0) Eosinophils (%) (Auto) 0.4 % (0.0-3.0) Basophils (%) (Auto) 0.8 % (0.0-2.0) Sodium Level 139 MMOL/L (136-145) Potassium Level 3.9 MMOL/L (3.5-5.1) Chloride Level 101 MMOL/L (98-107) Carbon Dioxide Level 33 MMOL/L (21-32) Anion Gap 5 mmol/L (5-15) Blood Urea Nitrogen 12 mg/dL (7-18) Creatinine 1.2 MG/DL (0.55-1.30) Estimat Glomerular Filtration Rate mL/min (>60) Glucose Level 156 MG/DL (74-106) Lactic Acid Level 1.20 mmol/L (0.4-2.0) Calcium Level 9.5 MG/DL (8.5-10.1) Total Bilirubin 0.3 MG/DL (0.2-1.0) Aspartate Amino Transf (AST/SGOT) 11 U/L (15-37) Alanine Aminotransferase (ALT/SGPT) 18 U/L (12-78) Alkaline Phosphatase 90 U/L (46-116) Total Creatine Kinase 57 U/L (26-308) Creatine Kinase MB < 0.5 NG/ML (0.0-3.6) Creatine Kinase MB Relative Index 0.8 Troponin I 0.000 ng/mL (0.000-0.056) Pro-B-Type Natriuretic Peptide 59 pg/mL (0-125) Total Protein 8.4 G/DL (6.4-8.2) Albumin 3.0 G/DL (3.4-5.0) Globulin 5.4 g/dL Albumin/Globulin Ratio 0.6 (1.0-2.7) Lipase 129 U/L (73-393) Urine Color Pale yellow Urine Appearance Clear Urine pH 7 (4.5-8.0) Urine Specific [place] 1.005 (1.005-1.035) Urine Protein 1+ (NEGATIVE) Urine Glucose (UA) 3+ (NEGATIVE) Urine Ketones Negative (NEGATIVE) Urine Blood 2+ (NEGATIVE) Urine Nitrite Negative (NEGATIVE) Urine Bilirubin Negative (NEGATIVE) Urine Urobilinogen Normal MG/DL (0.0-1.0) Urine Leukocyte Esterase 3+ (NEGATIVE) Urine RBC 5-10 /HPF (0 - 0) Urine WBC 10-15 /HPF (0 - 0) Urine Squamous Epithelial Cells None /LPF (NONE/OCC) Urine Bacteria Few /HPF (NONE) Rhythm Strip Diag. Results EP Interpretation: yes Rate: 67 Rhythm: NSR, no PVC's, no ectopy Chest X-Ray Diagnostic Results Chest X-Ray Diagnostic Results : Chest X-Ray Ordered: Yes # of Views/Limited/Complete: 1 View Indication: Shortness of Breath EP Interpretation: Yes Interpretation: no effusion, no pneumothorax, other - Right upper lobe scarring vs infiltrate Impression: Other - Right upper lobe atelec/markings Electronically Signed by: Marianne Kim DO Last Vital Signs Date Time Temp Pulse Resp B/P (MAP) Pulse Ox O2 Delivery O2 Flow Rate FiO2 10/08/18 15:00 81 Nasal Cannula 2.0 99 10/08/18 15:00 98.5 18 114/83 99 Status: improved Disposition: ADMITTED INPATIENT Condition: Serious Referrals: Loki Beebe MD (PCP) Marianne Kim DO Oct 08, 2018 15:51
[2018-10-08 15:55] LABS: APPEARANCE,URINE CLEAR; BILIRUBIN, URINE NEGATIVE (NEGATIVE); COLOR,URINE PALE YELLOW; GLUCOSE, URINE (UA) 3+ (NEGATIVE); KETONES,URINE NEGATIVE (NEGATIVE); LEUKOCYTE ESTERASE ,URINE 3+ (NEGATIVE); NITRITE,URINE NEGATIVE (NEGATIVE); PH,URINE 7 (4.5-8.0); PROTEIN,URINE 1+ (NEGATIVE); UROBILINOGEN,URINE NORMAL MG/DL (0.0-1.0)
[2018-10-08 16:13] LABS: ALANINE AMINOTRANSFERASE 18 U/L (12-78); ALBUMIN/GLOBULIN RATIO 0.6 (1.0-2.7); ALKALINE PHOSPHATASE 90 U/L (46-116); ASPARTATE AMINO TRANSFERASE 11 U/L (15-37); BILIRUBIN,TOTAL 0.3 MG/DL (0.2-1.0); CKMB < 0.5 NG/ML (0.0-3.6); CREATINE KINASE 57 U/L (26-308)
[2018-10-08] MEDS ORDERED: Solu-MEDROL 125mg Inj IVP ONE (16:30)
[2018-10-08] MEDS ORDERED: Albuterol ud Inhalation HHN ONE (16:30)
[2018-10-08] MEDS ORDERED: Levofloxacin 500mg tab ORAL ONE (16:45)
[2018-10-08 17:00] VITALS: BP_SYST 110; BP_SYST 117; BP_DIAS 70; BP_DIAS 84
[2018-10-08 20:00] VITALS: BP 127/62
[2018-10-08] MEDS: cefTRIAXone 1 GM in D5W 55 ML IVPB SCH (22:00)
[2018-10-08] MEDS: Heparin 5000 units/ml inj SUBQ SCH (22:40)
[2018-10-08] MEDS: Budesonide HHN 0.25mg/2ml ud HHN SCH (22:45)
[2018-10-08] MEDS: Albuterol/Ipratropium 3ml neb HHN SCH (23:56)
[2018-10-09] VITALS: BP 119/68
[2018-10-09] MEDS: Albuterol/Ipratropium 3ml neb HHN SCH ×6 (03:29→22:43)
[2018-10-09 04:00] VITALS: BP 117/66
[2018-10-09 05:06] LABS: HEMATOCRIT 36.2 % (42.0-52.0); HEMOGLOBIN 12.9 G/DL (14.2-18.0); MEAN CORPUSCULAR VOLUME 83 FL (80-99); PLATELET COUNT 216 K/UL (150-450); RED BLOOD COUNT 4.34 M/UL (4.70-6.10); RED CELL DISTRIBUTION WIDTH 11.3 % (11.6-14.8); WHITE BLOOD COUNT 8.1 K/UL (4.8-10.8)
[2018-10-09 05:26] LABS: ANION GAP 9 mmol/L (5-15); BLOOD UREA NITROGEN 16 mg/dL (7-18); CALCIUM 9.4 MG/DL (8.5-10.1); CARBON DIOXIDE 27 MMOL/L (21-32); CHLORIDE 101 MMOL/L (98-107); CREATININE 1.2 MG/DL (0.55-1.30); POTASSIUM 4.3 MMOL/L (3.5-5.1); SODIUM 136 MMOL/L (136-145)
[2018-10-09] MEDS: GlipiZIDE 5mg tab ORAL SCH ×2 (06:19→16:04)
[2018-10-09 08:00] VITALS: BP 129/65
[2018-10-09] MEDS: Solu-MEDROL 125mg Inj IVP SCH ×2 (08:46→22:35)
[2018-10-09] MEDS: Heparin 5000 units/ml inj SUBQ SCH ×2 (08:48→22:37)
--- NOTE | 2018-10-09 09:30 | Diagnostic Imaging Report ---
EXAM: XR Chest, 1 View CLINICAL HISTORY: DYSPNEA TECHNIQUE: Frontal view of the chest. COMPARISON: No relevant prior studies available. FINDINGS: Lungs: Prominent linear scarring versus atelectasis in bilateral upper lobes. Possible underlying bullous or emphysematous changes. Bilateral prominent interstitial markings. No focal pulmonary consolidations. Pleural space: Unremarkable. The costophrenic angles are sharp. No visible pneumothorax. Heart: Unremarkable. No cardiomegaly. Mediastinum: Unremarkable. Bones/joints: Unremarkable. Tubes, lines and devices: EKG leads overlie the thorax. IMPRESSION: 1. Linear scarring versus atelectasis in bilateral upper lobes. Possible underlying bullous or emphysematous changes. 2. Bilateral prominent interstitial markings. This is may be related to chronic senescent changes, bronchitis, or interstitial pneumonitis.
[2018-10-09] MEDS: Budesonide HHN 0.25mg/2ml ud HHN SCH ×2 (10:26→18:58)
[2018-10-09] MEDS: NovoLOG Insulin Flexpen SUBQ SCH ×3 (11:52→22:36)
[2018-10-09 12:00] VITALS: BP 149/83
[2018-10-09] MEDS ORDERED: guaiFENesin 100mg/5ml Liq ud ORAL PRN (15:39)
[2018-10-09] MEDS ORDERED: NS 275ml ONE (15:53)
[2018-10-09] MEDS ORDERED: Tubing IV Secondary IV ONE (15:53)
[2018-10-09 16:00] VITALS: BP 143/84
[2018-10-09 20:00] VITALS: BP 128/74
[2018-10-09] MEDS ORDERED: Atorvastatin 20mg tab ORAL SCH (21:00)
[2018-10-09] MEDS ORDERED: Zolpidem 5mg tab ORAL PRN (22:30)
[2018-10-09] MEDS: cefTRIAXone 1 GM in D5W 55 ML IVPB SCH (22:34)
[2018-10-10] VITALS: BP 125/73
[2018-10-10] MEDS: Albuterol/Ipratropium 3ml neb HHN SCH ×2 (02:37→07:09)
[2018-10-10 04:00] VITALS: BP 118/69
[2018-10-10] MEDS: GlipiZIDE 5mg tab ORAL SCH (06:17)
[2018-10-10] MEDS: NovoLOG Insulin Flexpen SUBQ SCH (06:18)
--- NOTE | 2018-10-10 07:47 | Pulmonology Progress Note ---
Assessment/Plan Assessment/Plan respiratory failure, chronic copd hypoxemia BPH diabetes hypertension PLAN IV steroids respiratory care oxygen DVT prophylaxis impression, plan, and exam edited and reviewed in detail care discussed with RN Subjective Allergies: Coded Allergies: No Known Allergies (Verified , 09/14/07) Subjective care noted respiratory same Objective Last 24 Hour Vital Signs Date Time Temp Pulse Resp B/P (MAP) Pulse Ox O2 Delivery O2 Flow Rate FiO2 10/10/18 07:11 Nasal Cannula 2.0 28 10/10/18 07:11 95 Nasal Cannula 2.0 28 10/10/18 07:09 95 19 94 Nasal Cannula 2.0 28 10/10/18 05:20 91 10/10/18 04:00 98.0 98 20 118/69 (85) 95 10/10/18 02:37 Nasal Cannula 2.0 28 10/10/18 02:37 Nasal Cannula 2.0 28 10/10/18 00:00 98.0 101 20 125/73 (90) 96 10/09/18 23:35 110 10/09/18 22:53 98 18 100 Nasal Cannula 2.0 28 10/09/18 22:45 93 18 93 Nasal Cannula 2.0 28 10/09/18 22:18 96 20 97 Nasal Cannula 2.0 28 10/09/18 21:00 Nasal Cannula 2.0 10/09/18 20:13 102 10/09/18 20:00 98.3 108 20 128/74 (92) 94 10/09/18 19:34 99 18 100 Nasal Cannula 2.0 28 10/09/18 19:01 Nasal Cannula 2.0 28 10/09/18 19:01 94 Nasal Cannula 2.0 28 10/09/18 19:01 93 20 94 Nasal Cannula 2.0 28 10/09/18 19:01 93 18 94 Nasal Cannula 2.0 28 10/09/18 16:00 106 10/09/18 16:00 98.5 108 18 143/84 (103) 94 10/09/18 15:22 94 18 100 Nasal Cannula 2.0 28 10/09/18 15:16 88 18 97 Nasal Cannula 2.0 28 10/09/18 12:00 100 10/09/18 12:00 98.2 105 18 149/83 (105) 93 10/09/18 11:28 99 18 98 Nasal Cannula 2.0 28 10/09/18 11:18 100 18 94 Nasal Cannula 2.0 28 10/09/18 10:34 92 20 97 Nasal Cannula 2.0 28 10/09/18 10:28 90 20 94 Nasal Cannula 2.0 28 10/09/18 09:00 Nasal Cannula 2.0 10/09/18 08:07 92 18 97 Nasal Cannula 2.0 28 10/09/18 08:00 98.1 98 18 129/65 (86) 94 10/09/18 08:00 97 10/09/18 07:56 98 18 94 Nasal Cannula 2.0 28 10/09/18 07:56 Nasal Cannula 2.0 28 10/09/18 07:56 94 Nasal Cannula 2.0 28 Intake and Output 10/09/18 10/10/18 19:00 07:00 Intake Total 480 ml Output Total 600 ml Balance -120 ml Intake Oral 480 ml Output Urine Total 600 ml # Voids 3 # Bowel Movements 1 1 Objective WDWN NAD reduced breath sounds bilaterally without rhonchi or wheeze [id number] without MRG; distant NABS nontender no HSM no CCE nonfocal Microbiology Date/Time Source Procedure Growth Status 10/08/18 15:22 Blood Blood Culture - Preliminary NO GROWTH AFTER 24 HOURS Resulted 10/08/18 15:05 Blood Blood Culture - Preliminary NO GROWTH AFTER 24 HOURS Resulted 10/08/18 15:22 Nasal Nares Influenza Types A,B Antigen (SEN) - Final Complete Current Medications Medications (Trade) Dose Ordered Sig/Pedro Route PRN Reason Start Time Stop Time Status Last Admin Dose Admin Albuterol/ Ipratropium (Albuterol/ Ipratropium) 3 ml Q4HRT [facility] 10/08/18 23:00 10/13/18 22:59 10/10/18 07:09 Aspirin (ASA) 81 mg DAILY ORAL 10/10/18 09:00 11/09/18 08:59 Atorvastatin Calcium (Lipitor) 40 mg BEDTIME ORAL 10/09/18 21:00 11/08/18 20:59 10/09/18 22:35 Budesonide (Pulmicort) 0.5 mg BIDRT [facility] 10/08/18 22:45 11/07/18 22:44 10/09/18 18:58 Ceftriaxone Sodium 1 gm/ Dextrose 55 ml @ 110 mls/hr Q24H IVPB 10/08/18 22:00 10/15/18 21:59 10/09/18 22:34 Dextrose (Dextrose 50%) 25 ml Q30M PRN IV Hypoglycemia 10/08/18 20:30 11/07/18 20:29 Dextrose (Dextrose 50%) 25 ml Q30M PRN IV Hypoglycemia 10/09/18 11:45 11/08/18 11:44 Dextrose (Dextrose 50%) 50 ml Q30M PRN IV Hypoglycemia 10/08/18 20:30 11/07/18 20:29 Dextrose (Dextrose 50%) 50 ml Q30M PRN IV Hypoglycemia 10/09/18 11:45 11/08/18 11:44 Ferrous Sulfate (Feosol) 325 mg BID ORAL 10/08/18 21:54 11/07/18 21:53 10/09/18 17:19 Glipizide (Glucotrol) 5 mg BIAC ORAL 10/09/18 06:30 11/08/18 06:29 10/10/18 06:17 Guaifenesin (Robitussin) 100 mg Q4H PRN ORAL For Cough 10/09/18 15:39 11/08/18 15:38 Heparin Sodium (Porcine) (Heparin 5000 units/ml) 5,000 units EVERY 12 HOURS SUBQ 10/08/18 21:00 11/07/18 20:59 10/09/18 22:37 Insulin Aspart (NovoLOG) BEFORE MEALS AND HS SUBQ 10/09/18 11:45 11/08/18 11:44 10/10/18 06:18 Methylprednisolone Sodium Succinate (Solu-MEDROL) 60 mg EVERY 12 HOURS IVP 10/09/18 09:00 11/08/18 08:59 10/09/18 22:35 Pantoprazole (Protonix) 40 mg BID ORAL 10/09/18 09:00 11/08/18 08:59 10/09/18 17:19 Zolpidem Tartrate (Ambien) 5 mg HSPRN PRN ORAL Insomnia 10/09/18 22:30 10/16/18 22:29 10/09/18 22:35 Loki Beebe MD Oct 10, 2018 07:47
[2018-10-10 08:00] VITALS: BP 119/72
[2018-10-10] MEDS ORDERED: Aspirin Baby 81mg ORAL SCH (09:00)
[2018-10-10] MEDS: Solu-MEDROL 125mg Inj IVP SCH (09:03)
[2018-10-10] MEDS: Heparin 5000 units/ml inj SUBQ SCH (09:03)
--- NOTE | 2018-10-10 09:47 | General Progress Note ---
Assessment/Plan Problem List: (1) Respiratory distress ICD Codes: R06.03 - Respiratory distress SNOMED: 398329517 (2) Pneumonia ICD Codes: J18.9 - Pneumonia SNOMED: 397890258 (3) Dyspnea ICD Codes: R06.00 - Dyspnea, unspecified SNOMED: 147517044 (4) COPD exacerbation ICD Codes: J44.1 - COPD exacerbation SNOMED: 577884492 Status: stable, progressing Assessment/Plan stable resp rx steroids abx dc planning per pulm Subjective ROS Limited/Unobtainable: No Constitutional: Reports: no symptoms HEENT: Reports: no symptoms Cardiovascular: Reports: no symptoms Respiratory: Reports: cough Gastrointestinal/Abdominal: Reports: no symptoms Genitourinary: Reports: no symptoms Neurologic/Psychiatric: Reports: no symptoms Endocrine: Reports: no symptoms Hematologic/Lymphatic: Reports: no symptoms Allergies: Coded Allergies: No Known Allergies (Verified , 09/14/07) All Systems: reviewed and negative except above Subjective states he feels better. decreased cough and congestion. no fever or chills. no chest pain . Objective Last 24 Hour Vital Signs Date Time Temp Pulse Resp B/P (MAP) Pulse Ox O2 Delivery O2 Flow Rate FiO2 10/10/18 08:00 98.4 95 19 119/72 (88) 98 10/10/18 07:19 92 18 100 Nasal Cannula 2.0 28 10/10/18 07:11 Nasal Cannula 2.0 28 10/10/18 07:11 95 Nasal Cannula 2.0 28 10/10/18 07:09 95 19 94 Nasal Cannula 2.0 28 10/10/18 05:20 91 10/10/18 04:00 98.0 98 20 118/69 (85) 95 10/10/18 02:37 Nasal Cannula 2.0 28 10/10/18 02:37 Nasal Cannula 2.0 28 10/10/18 00:00 98.0 101 20 125/73 (90) 96 10/09/18 23:35 110 10/09/18 22:53 98 18 100 Nasal Cannula 2.0 28 10/09/18 22:45 93 18 93 Nasal Cannula 2.0 28 10/09/18 22:18 96 20 97 Nasal Cannula 2.0 28 10/09/18 21:00 Nasal Cannula 2.0 10/09/18 20:13 102 10/09/18 20:00 98.3 108 20 128/74 (92) 94 10/09/18 19:34 99 18 100 Nasal Cannula 2.0 28 10/09/18 19:01 Nasal Cannula 2.0 28 10/09/18 19:01 94 Nasal Cannula 2.0 28 10/09/18 19:01 93 20 94 Nasal Cannula 2.0 28 10/09/18 19:01 93 18 94 Nasal Cannula 2.0 28 10/09/18 16:00 106 10/09/18 16:00 98.5 108 18 143/84 (103) 94 10/09/18 15:22 94 18 100 Nasal Cannula 2.0 28 10/09/18 15:16 88 18 97 Nasal Cannula 2.0 28 10/09/18 12:00 100 10/09/18 12:00 98.2 105 18 149/83 (105) 93 10/09/18 11:28 99 18 98 Nasal Cannula 2.0 28 10/09/18 11:18 100 18 94 Nasal Cannula 2.0 28 10/09/18 10:34 92 20 97 Nasal Cannula 2.0 28 10/09/18 10:28 90 20 94 Nasal Cannula 2.0 28 Intake and Output 10/09/18 10/10/18 19:00 07:00 Intake Total 480 ml Output Total 600 ml Balance -120 ml Intake Oral 480 ml Output Urine Total 600 ml # Voids 3 # Bowel Movements 1 1 Height (Feet): 5 Height (Inches): 8.00 Weight (Pounds): 176 General Appearance: WD/WN, alert Neck: supple Cardiovascular: normal rate, regular rhythm Respiratory/Chest: chest wall non-tender, lungs clear Abdomen: normal bowel sounds, non tender, soft, no organomegaly Lymphatic: normal anterior cervical (L), normal anterior cervical (R), normal posterior cervical (L), normal posterior cervical (R), normal submandibular (L) , normal submandibular (R), normal supraclavicular (L), normal supraclavicular ( R), normal axillary (L), normal axillary (R), normal inguinal (L), normal inguinal (R), normal other Geovanni Castillo MD Oct 10, 2018 09:47
--- NOTE | 2018-10-10 09:53 | General Progress Note ---
Assessment/Plan Problem List: (1) Respiratory distress ICD Codes: R06.03 - Respiratory distress SNOMED: 019559554 (2) Pneumonia ICD Codes: J18.9 - Pneumonia SNOMED: 269929441 (3) Dyspnea ICD Codes: R06.00 - Dyspnea, unspecified SNOMED: 522690948 (4) COPD exacerbation ICD Codes: J44.1 - COPD exacerbation SNOMED: 456612517 Assessment/Plan stable resp rx steroids abx dc planning per pulm Subjective Allergies: Coded Allergies: No Known Allergies (Verified , 09/14/07) Subjective states he feels better. decreased cough and congestion. no fever or chills. no chest pain . Objective Last 24 Hour Vital Signs Date Time Temp Pulse Resp B/P (MAP) Pulse Ox O2 Delivery O2 Flow Rate FiO2 10/10/18 08:00 98.4 95 19 119/72 (88) 98 10/10/18 07:19 92 18 100 Nasal Cannula 2.0 28 10/10/18 07:11 Nasal Cannula 2.0 28 10/10/18 07:11 95 Nasal Cannula 2.0 28 10/10/18 07:09 95 19 94 Nasal Cannula 2.0 28 10/10/18 05:20 91 10/10/18 04:00 98.0 98 20 118/69 (85) 95 10/10/18 02:37 Nasal Cannula 2.0 28 10/10/18 02:37 Nasal Cannula 2.0 28 10/10/18 00:00 98.0 101 20 125/73 (90) 96 10/09/18 23:35 110 10/09/18 22:53 98 18 100 Nasal Cannula 2.0 28 10/09/18 22:45 93 18 93 Nasal Cannula 2.0 28 10/09/18 22:18 96 20 97 Nasal Cannula 2.0 28 10/09/18 21:00 Nasal Cannula 2.0 10/09/18 20:13 102 10/09/18 20:00 98.3 108 20 128/74 (92) 94 10/09/18 19:34 99 18 100 Nasal Cannula 2.0 28 10/09/18 19:01 Nasal Cannula 2.0 28 10/09/18 19:01 94 Nasal Cannula 2.0 28 10/09/18 19:01 93 20 94 Nasal Cannula 2.0 28 10/09/18 19:01 93 18 94 Nasal Cannula 2.0 28 10/09/18 16:00 106 10/09/18 16:00 98.5 108 18 143/84 (103) 94 10/09/18 15:22 94 18 100 Nasal Cannula 2.0 28 10/09/18 15:16 88 18 97 Nasal Cannula 2.0 28 10/09/18 12:00 100 10/09/18 12:00 98.2 105 18 149/83 (105) 93 10/09/18 11:28 99 18 98 Nasal Cannula 2.0 28 10/09/18 11:18 100 18 94 Nasal Cannula 2.0 28 10/09/18 10:34 92 20 97 Nasal Cannula 2.0 28 10/09/18 10:28 90 20 94 Nasal Cannula 2.0 28 Intake and Output 10/09/18 10/10/18 19:00 07:00 Intake Total 480 ml Output Total 600 ml Balance -120 ml Intake Oral 480 ml Output Urine Total 600 ml # Voids 3 # Bowel Movements 1 1 Height (Feet): 5 Height (Inches): 8.00 Weight (Pounds): 176 Geovanni Castillo MD Oct 10, 2018 09:53
--- NOTE | 2018-10-11 07:52 | Discharge Summary ---
Discharge Summary Discharge Summary _ DATE OF ADMISSION: 10/08/2018 DATE OF DISCHARGE: 10/10/2018 REASON FOR ADMISSION: 83 years old male with past medical history of COPD/emphysema, diabetes, hypertension, BPH, presented to emergency department complaining of cough and congestion. Caregiver reported low-grade fever at home and decreased oral intake over past several days. Symptoms started 2 days ago. Patient at home oxygen dependent. Upon evaluation, pulse oximetry was 79% on room air. Patient was tachycardic and tachypneic, but no fever. Chest x-ray revealed extensive scarring in the right upper lobe, bullous changes in upper lobes bilaterally, no definite acute process otherwise. ABG revealed evidence of hypoxia with O2 sat 88% . Laboratory workup revealed no leukocytosis, stable renal parameters and electrolytes . Troponin negative , proBNP 59. Patient admitted with diagnosis of COPD exacerbation, dyspnea ,respiratory distress with hypoxemia CONSULTANTS: fidelia [facility] COURSE: Patient admitted to telemetry floor. Supplemental oxygen provided to keep pulse oximetry above 92%. Pulmonary toilet provided around the clock and as needed with bronchodilators. Patient was continued on steroid inhaler /Pulmicort. Patient started on intravenous steroids with tapering and empiric antibiotics. Influenza screen test was negative. Blood culture were negative. Antitussive provided to needed. Home medications, including aspirin and statin , resumed. Blood sugar was managed with glipizide and sliding scale of insulin as needed. Blood pressure was closely monitored, and remained stable, DVT and GI prophylaxis provided. Patient clinically improved and was ready for discharge home with home health services FINAL DIAGNOSES: COPD exacerbation chronic respiratory failure diabetes hypertension hypoxemia BPH DISCHARGE MEDICATIONS: List of medication was sent with patient. DISCHARGE INSTRUCTIONS: Patient was discharged home with home health services. Follow up with primary care provider in one week. I have been assigned to dictate discharge summary for this account. I was not involved in the patient's management. Samantha Rush NP Oct 11, 2018 07:52
--- NOTE | 2018-10-11 07:59 | Cardiology Report ---
APPROVED REPORT EKG Measurement Heart [id number] Normal sinus rhythm Normal ECG
== END 2018-10-10 11:05 | disposition home health service (06) | DRG 191 ==
LOC: EDUNIT# 13:31 → EMR 14:55 → 2E 15:03 → EDBEDREQ 16:02
DX: J44.1 Chronic obstructive pulmonary disease with (acute) exacerbation (principal); J96.11 Chronic respiratory failure with hypoxia; E11.9 Type 2 diabetes mellitus without complications; I10 Essential (primary) hypertension; N40.0 Benign prostatic hyperplasia without lower urinary tract symptoms
CPT/HCPCS: 36415; 36600; 71045; 80048; 80053; 81003; 82550; 82553; 82803; 82962; 83605; 83690; 83880; 84484; 85007; 85025; 86710; 87040; 87086; 87181; 93005; 94640; 94664; 94760; 96374; 99285; J1815; J7620

== ENCOUNTER 2018-11-18 08:00 | Inpatient (IN) | payer MEDICARE, BC ==
[~2018-11-18] VITALS: Ht 177.8 cm; Wt 84.4 kg
[2018-11-18] MEDS ORDERED: RAPAFLO8 MG ORAL (08:25)
[2018-11-18] MEDS ORDERED: MEDROL DOSEPAK4 MG ORAL (08:25)
[2018-11-18] MEDS ORDERED: SYMBICORT 16010.2 G1 IH (08:25)
[2018-11-18] MEDS ORDERED: FERROUS SULFAT325 MG ORAL (08:25)
--- NOTE | 2018-11-18 08:27 | Emergency Room Report ---
History of Present Illness General Chief Complaint: Dyspnea/Respdistress Source: Patient Present Illness HPI 83-year-old male presents ED complaining of shortness of breath. Talent Development Analyst at bedside states that patient has history of COPD. Increasingly short of breath last few weeks. Is on home oxygen. Also notes cough. Productive with yellowish phlegm. Denies fevers or chills. Denies chest pain. Started on steroids a few days ago without improvement. States he was admitted in September for COPD exacerbation. No other aggravating relieving factors. 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 Hx Cancer: No Hx Gastrointestinal Problems: No Hx Dialysis: No Hx Neurological Problems: No Hx Cerebrovascular Accident: No Review of Systems All Other Systems: negative except mentioned in HPI Physical Exam Vital Signs Date Time Temp Pulse Resp B/P (MAP) Pulse Ox O2 Delivery O2 Flow Rate FiO2 11/18/18 08:06 98.1 97 20 135/80 91 Nasal Cannula 3.0 Sp02 EP Interpretation: reviewed, normal General Appearance: no apparent distress, alert, GCS 15, non-toxic Head: normocephalic Eyes: bilateral eye normal inspection, bilateral eye PERRL ENT: normal ENT inspection Neck: normal inspection Respiratory: decreased breath sounds, wheezing Cardiovascular #1: regular rate, rhythm, no edema Gastrointestinal: normal inspection Rectal: deferred Genitourinary: no CVA tenderness Musculoskeletal: normal inspection Neurologic: alert, oriented x3, responsive, motor strength/tone normal, sensory intact, speech normal Psychiatric: normal inspection Skin: normal inspection Lymphatic: normal inspection Medical Decision Making Diagnostic Impression: Primary Impression: COPD exacerbation Additional Impression: Pneumonia Qualified Codes: J18.1 - Lobar pneumonia, unspecified organism ER Course Hospital Course 83-year-old M presenting to ED with SOB. h/o COPD Differential diagnoses include: Pneumonia, CHF exacerbation, pneumothorax, fluid overload Clinical course Patient placed on stretcher. On wearing apparel folder with stable vitals. After initial history and physical, I ordered nebulizer treatments. I ordered labs, IV fluids, EKG, chest x-ray, blood cultures, UA. Labs - noted leukocytosis noted, hemoglobin/hematocrit stable, electrolytes okay, lactate okay, troponins negative CXR - hyperinflated lungs. bibasilar atelectasis not seen on last CXR EKG - NSR, no acute ischemic changes interpreted by me Patient states he does not feel better. admission indicated. abx given. Case discussed with Dr. Beebe and he agreed to the patient to his service for further care and support I feel this is a highly complex case requiring extensive working including EKG/ Rhythm strip, Xray/CT/US, Blood/urine lab work, repeat exams while in ED, and administration of strong opiates/narcotics for pain control, admission to hospital or close patient follow up. Diagnosis - COPD exacerbation, pneumonia Patient admitted to telemetry in serious condition Labs Test 11/18/18 08:30 White Blood Count 17.6 K/UL (4.8-10.8) Red Blood Count 4.35 M/UL (4.70-6.10) Hemoglobin 12.4 G/DL (14.2-18.0) Hematocrit 37.6 % (42.0-52.0) Mean Corpuscular Volume 86 FL (80-99) Mean Corpuscular Hemoglobin 28.4 PG (27.0-31.0) Mean Corpuscular Hemoglobin Concent 32.9 G/DL (32.0-36.0) Red Cell Distribution Width 12.6 % (11.6-14.8) Platelet Count 241 K/UL (150-450) Mean Platelet Volume 6.1 FL (6.5-10.1) Neutrophils (%) (Auto) % (45.0-75.0) Lymphocytes (%) (Auto) % (20.0-45.0) Monocytes (%) (Auto) % (1.0-10.0) Eosinophils (%) (Auto) % (0.0-3.0) Basophils (%) (Auto) % (0.0-2.0) Differential Total Cells Counted 100 Neutrophils % (Manual) 75 % (45-75) Lymphocytes % (Manual) 13 % (20-45) Monocytes % (Manual) 10 % (1-10) Eosinophils % (Manual) 0 % (0-3) Basophils % (Manual) 0 % (0-2) Band Neutrophils 2 % (0-8) Platelet Estimate Adequate Platelet Morphology Normal Red Blood Cell Morphology Normal Sodium Level 136 MMOL/L (136-145) Potassium Level 4.5 MMOL/L (3.5-5.1) Chloride Level 98 MMOL/L (98-107) Carbon Dioxide Level 30 MMOL/L (21-32) Anion Gap 8 mmol/L (5-15) Blood Urea Nitrogen 13 mg/dL (7-18) Creatinine 1.2 MG/DL (0.55-1.30) Estimat Glomerular Filtration Rate mL/min (>60) Glucose Level 359 MG/DL (74-106) Lactic Acid Level 1.40 mmol/L (0.4-2.0) Calcium Level 10.0 MG/DL (8.5-10.1) Total Bilirubin 0.4 MG/DL (0.2-1.0) Aspartate Amino Transf (AST/SGOT) 11 U/L (15-37) Alanine Aminotransferase (ALT/SGPT) 18 U/L (12-78) Alkaline Phosphatase 94 U/L (46-116) Total Creatine Kinase 37 U/L (26-308) Creatine Kinase MB 1.0 NG/ML (0.0-3.6) Creatine Kinase MB Relative Index 2.7 Troponin I 0.000 ng/mL (0.000-0.056) Pro-B-Type Natriuretic Peptide 204 pg/mL (0-125) Total Protein 7.8 G/DL (6.4-8.2) Albumin 2.8 G/DL (3.4-5.0) Globulin 5.0 g/dL Albumin/Globulin Ratio 0.6 (1.0-2.7) EKG Diagnostic Results Rate: normal Rhythm: NSR ST Segments: no acute changes ASA given to the pt in ED: No Rhythm Strip Diag. Results EP Interpretation: yes Rhythm: NSR, no PVC's, no ectopy Chest X-Ray Diagnostic Results Chest X-Ray Diagnostic Results : Chest X-Ray Ordered: Yes # of Views/Limited/Complete: 1 View Indication: Shortness of Breath EP Interpretation: Yes Interpretation: no pneumothorax, other - hyperinflation. hyperlucency in upper lobes. bibasilar atelectasis vs pneumonia Impression: Other - COPD + pneumonia Electronically Signed by: Electronically signed by Felipe Johnson MD Last Vital Signs Date Time Temp Pulse Resp B/P (MAP) Pulse Ox O2 Delivery O2 Flow Rate FiO2 11/18/18 08:06 98.1 97 20 135/80 91 Nasal Cannula 3.0 Status: improved Disposition: ADMITTED INPATIENT Condition: Serious Felipe Johnson MD Nov 18, 2018 08:27
[2018-11-18] MEDS ORDERED: Solu-MEDROL 125mg Inj IVP ONE (08:30)
[2018-11-18] MEDS: Albuterol ud Inhalation HHN SCH ×3 (08:46→09:22)
[2018-11-18] MEDS: Ipratropium 0.02% Inh Soln 2.5ml UD HHN SCH ×3 (08:46→09:21)
[2018-11-18 09:00] VITALS: BP 138/70
[2018-11-18 09:26] LABS: HEMATOCRIT 37.6 % (42.0-52.0); HEMOGLOBIN 12.4 G/DL (14.2-18.0); MEAN CORPUSCULAR VOLUME 86 FL (80-99); PLATELET COUNT 241 K/UL (150-450); RED BLOOD COUNT 4.35 M/UL (4.70-6.10); RED CELL DISTRIBUTION WIDTH 12.6 % (11.6-14.8); WHITE BLOOD COUNT 17.6 K/UL (4.8-10.8)
[2018-11-18 09:29] LABS: ANION GAP 8 mmol/L (5-15); BLOOD UREA NITROGEN 13 mg/dL (7-18); CARBON DIOXIDE 30 MMOL/L (21-32); CHLORIDE 98 MMOL/L (98-107); CREATININE 1.2 MG/DL (0.55-1.30); POTASSIUM 4.5 MMOL/L (3.5-5.1); SODIUM 136 MMOL/L (136-145)
[2018-11-18 09:44] LABS: ALANINE AMINOTRANSFERASE 18 U/L (12-78); ALBUMIN 2.8 G/DL (3.4-5.0); ALBUMIN/GLOBULIN RATIO 0.6 (1.0-2.7); ALKALINE PHOSPHATASE 94 U/L (46-116); ASPARTATE AMINO TRANSFERASE 11 U/L (15-37); BILIRUBIN,TOTAL 0.4 MG/DL (0.2-1.0); CREATINE KINASE 37 U/L (26-308)
--- NOTE | 2018-11-18 09:52 | Diagnostic Imaging Report ---
Indication: Dyspnea Comparison: 10/09/2018 A single view chest radiograph was obtained. Findings: Hyperlucency noted in the upper lobes with areas of distortion of pulmonary architecture and generalized hyperinflation. Bands of fibrotic scarring noted in the portions of both upper lobes. The basilar aspects of the lungs show some increased parenchymal density compared to last examination probably atelectasis. Correlate clinically. Heart size is stable. IMPRESSION: Chronic lung disease. Increased basilar atelectasis suspected.
[2018-11-18] MEDS ORDERED: Cefepime HCl 1 GM in D5W 55 ML IVPB ONE (10:00)
[2018-11-18] MEDS ORDERED: Azithromycin 500 MG in NS 275 ML IV ONE (10:00)
[2018-11-18 10:22] LABS: APPEARANCE,URINE CLEAR; BILIRUBIN, URINE NEGATIVE (NEGATIVE); COLOR,URINE PALE YELLOW; GLUCOSE, URINE (UA) 3+ (NEGATIVE); KETONES,URINE NEGATIVE (NEGATIVE); LEUKOCYTE ESTERASE ,URINE NEGATIVE (NEGATIVE); NITRITE,URINE NEGATIVE (NEGATIVE); PH,URINE 7 (4.5-8.0); PROTEIN,URINE 2+ (NEGATIVE); UROBILINOGEN,URINE NORMAL MG/DL (0.0-1.0)
[2018-11-18 10:28] VITALS: BP 122/60
[2018-11-18 16:01] VITALS: BP 135/104
[2018-11-18] MEDS ORDERED: Zolpidem 5mg tab ORAL PRN (16:15)
[2018-11-18 20:00] VITALS: BP 136/62
[2018-11-18] MEDS: Albuterol/Ipratropium 3ml neb HHN SCH ×2 (20:44→23:29)
--- NOTE | 2018-11-18 21:00 | Consultation ---
Consult Note Consult Note REASON FOR ADMISSION: COPD with acute exacerbation. HISTORY OF PRESENT ILLNESS: 83-year-old male, well known to me. The patient presents with worsening shortness of breath and ongoing distress. The patient is seen and evaluated in the emergency room. The patient has had worsening symptoms over the past several days, and has not improved with po prednisone. Denies any sputum. Denies fevers. Denies any recent travel. Denies any ill contacts. The patient at home with chronic oxygen and is using. The patient has been compliant with his medications and care. The patient admitted for COPD with acute exacerbation and pneumonia. Care discussed with the patient's and the patient in detail. The patient appears to be overall somewhat improved. The patient's care discussed and reviewed. The patient denies any trauma, denies any falls at this time. PAST MEDICAL HISTORY: Notable for end-stage COPD, chronic hypoxemia, chronic hypercapnia, diabetes, hypercholesterolemia, chronic rhinitis, and benign prostatic hyperplasia. MEDICATIONS: Reviewed. ALLERGIES: Reviewed. SOCIAL HISTORY: The patient is a past smoker. retired, lives at home with his . The patient is oxygen dependent. REVIEW OF SYSTEMS: All 10 points reviewed and otherwise negative. urinary issues; elevated PSA PHYSICAL EXAMINATION: GENERAL: The patient is a well-developed male, comfortable at present. HEENT: Overall negative. Extraocular movements are grossly intact. NECK: Supple. No adenopathy. LUNGS: With poor air entry overall. No rhonchi or wheezes. CARDIAC: Distant. Regular rate and rhythm without murmurs, rubs, or gallops. ABDOMEN: Soft, nontender, and nondistended. EXTREMITIES: No cyanosis, clubbing, or edema. NEUROLOGIC: Grossly nonfocal. LABORATORY DATA: Labs Test 11/18/18 08:30 11/18/18 10:02 White Blood Count 17.6 K/UL (4.8-10.8) Red Blood Count 4.35 M/UL (4.70-6.10) Hemoglobin 12.4 G/DL (14.2-18.0) Hematocrit 37.6 % (42.0-52.0) Mean Corpuscular Volume 86 FL (80-99) Mean Corpuscular Hemoglobin 28.4 PG (27.0-31.0) Mean Corpuscular Hemoglobin Concent 32.9 G/DL (32.0-36.0) Red Cell Distribution Width 12.6 % (11.6-14.8) Platelet Count 241 K/UL (150-450) Mean Platelet Volume 6.1 FL (6.5-10.1) Neutrophils (%) (Auto) % (45.0-75.0) Lymphocytes (%) (Auto) % (20.0-45.0) Monocytes (%) (Auto) % (1.0-10.0) Eosinophils (%) (Auto) % (0.0-3.0) Basophils (%) (Auto) % (0.0-2.0) Differential Total Cells Counted 100 Neutrophils % (Manual) 75 % (45-75) Lymphocytes % (Manual) 13 % (20-45) Monocytes % (Manual) 10 % (1-10) Eosinophils % (Manual) 0 % (0-3) Basophils % (Manual) 0 % (0-2) Band Neutrophils 2 % (0-8) Platelet Estimate Adequate Platelet Morphology Normal Red Blood Cell Morphology Normal Sodium Level 136 MMOL/L (136-145) Potassium Level 4.5 MMOL/L (3.5-5.1) Chloride Level 98 MMOL/L (98-107) Carbon Dioxide Level 30 MMOL/L (21-32) Anion Gap 8 mmol/L (5-15) Blood Urea Nitrogen 13 mg/dL (7-18) Creatinine 1.2 MG/DL (0.55-1.30) Estimat Glomerular Filtration Rate mL/min (>60) Glucose Level 359 MG/DL (74-106) Lactic Acid Level 1.40 mmol/L (0.4-2.0) Calcium Level 10.0 MG/DL (8.5-10.1) Total Bilirubin 0.4 MG/DL (0.2-1.0) Aspartate Amino Transf (AST/SGOT) 11 U/L (15-37) Alanine Aminotransferase (ALT/SGPT) 18 U/L (12-78) Alkaline Phosphatase 94 U/L (46-116) Total Creatine Kinase 37 U/L (26-308) Creatine Kinase MB 1.0 NG/ML (0.0-3.6) Creatine Kinase MB Relative Index 2.7 Troponin I 0.000 ng/mL (0.000-0.056) Pro-B-Type Natriuretic Peptide 204 pg/mL (0-125) Total Protein 7.8 G/DL (6.4-8.2) Albumin 2.8 G/DL (3.4-5.0) Globulin 5.0 g/dL Albumin/Globulin Ratio 0.6 (1.0-2.7) Urine Color Pale yellow Urine Appearance Clear Urine pH 7 (4.5-8.0) Urine Specific [place] 1.005 (1.005-1.035) Urine Protein 2+ (NEGATIVE) Urine Glucose (UA) 3+ (NEGATIVE) Urine Ketones Negative (NEGATIVE) Urine Blood 1+ (NEGATIVE) Urine Nitrite Negative (NEGATIVE) Urine Bilirubin Negative (NEGATIVE) Urine Urobilinogen Normal MG/DL (0.0-1.0) Urine Leukocyte Esterase Negative (NEGATIVE) Urine RBC 0-2 /HPF (0 - 0) Urine WBC 0-2 /HPF (0 - 0) Urine Squamous Epithelial Cells Occasional /LPF Urine Bacteria Occasional /HPF (NONE) IMPRESSION: 1. COPD with acute exacerbation. 2. Possible Pneumonia 3. Pulmonary congestion 4. Diabetes 5. Benign prostatic hyperplasia. 6. Chronic hypoxemia. 7. Chronic hypercapnia. RECOMMENDATION: 1. Monitor clinically 2. IV Solu-Medrol. 3. Monitor blood sugars, with steroid use 4. Respiratory care to continue 5. Empiric antibiotics for CAP 6. resume home meds 7. Monitor further and assist with dispo impression, plan, and exam edited and reviewed in detail care discussed with Loki Mensah MD Nov 18, 2018 21:00
--- NOTE | 2018-11-18 21:01 | Pulmonology Progress Note ---
Subjective Allergies: Coded Allergies: No Known Allergies (Verified , 09/14/07) Objective Last 24 Hour Vital Signs Date Time Temp Pulse Resp B/P (MAP) Pulse Ox O2 Delivery O2 Flow Rate FiO2 11/18/18 20:49 95 22 90 Nasal Cannula 3.0 32 11/18/18 16:01 98.4 101 20 135/104 (114) 92 11/18/18 16:00 127 11/18/18 14:17 Nasal Cannula 3.0 Nasal Cannula 3.0 11/18/18 12:46 97.7 105 25 116/66 89 Room Air 4.0 11/18/18 10:28 97.7 106 18 122/60 92 11/18/18 09:45 106 28 91 Nasal Cannula 4.0 36 11/18/18 09:00 96 24 138/70 97 Nasal Cannula 3.0 11/18/18 09:00 96 24 11/18/18 08:46 98 28 94 Nasal Cannula 4.0 36 11/18/18 08:44 96 22 Nasal Cannula 4.0 36 11/18/18 08:06 98.1 97 20 135/80 91 Nasal Cannula 3.0 Microbiology Date/Time Source Procedure Growth Status 11/18/18 08:40 Nasal Nares Influenza Types A,B Antigen (SEN) - Final Complete Laboratory Tests 11/18/18 08:30: White Blood Count 17.6H, Red Blood Count 4.35L, Hemoglobin 12.4L, Hematocrit 37.6L, Mean Corpuscular Volume 86, Mean Corpuscular Hemoglobin 28.4, Mean Corpuscular Hemoglobin Concent 32.9, Red Cell Distribution Width 12.6, Platelet Count 241, Mean Platelet Volume 6.1L, Neutrophils (%) (Auto) , Lymphocytes (%) ( Auto) , Monocytes (%) (Auto) , Eosinophils (%) (Auto) , Basophils (%) (Auto) , Differential Total Cells Counted 100, Neutrophils % (Manual) 75, Lymphocytes % ( Manual) 13L, Monocytes % (Manual) 10, Eosinophils % (Manual) 0, Basophils % ( Manual) 0, Band Neutrophils 2, Platelet Estimate Adequate, Platelet Morphology Normal, Red Blood Cell Morphology Normal, Sodium Level 136, Potassium Level 4.5 , Chloride Level 98, Carbon Dioxide Level 30, Anion Gap 8, Blood Urea Nitrogen 13, Creatinine 1.2, Estimat Glomerular Filtration Rate , Glucose Level 359H, Lactic Acid Level 1.40, Calcium Level 10.0, Total Bilirubin 0.4, Aspartate Amino Transf (AST/SGOT) 11L, Alanine Aminotransferase (ALT/SGPT) 18, Alkaline Phosphatase 94, Total Creatine Kinase 37, Creatine Kinase MB 1.0, Creatine Kinase MB Relative Index 2.7, Troponin I 0.000, Pro-B-Type Natriuretic Peptide 204H, Total Protein 7.8, Albumin 2.8L, Globulin 5.0, Albumin/Globulin Ratio 0.6L 11/18/18 10:02: Urine Color Pale yellow, Urine Appearance Clear, Urine pH 7, Urine Specific [place] 1.005, Urine Protein 2+H, Urine Glucose (UA) 3+H, Urine Ketones Negative , Urine Blood 1+H, Urine Nitrite Negative, Urine Bilirubin Negative, Urine Urobilinogen Normal, Urine Leukocyte Esterase Negative, Urine RBC 0-2H, Urine WBC 0-2, Urine Squamous Epithelial Cells Occasional, Urine Bacteria Occasional Current Medications Medications (Trade) Dose Ordered Sig/Pedro Route PRN Reason Start Time Stop Time Status Last Admin Dose Admin Albuterol/ Ipratropium (Albuterol/ Ipratropium) 3 ml Q4HRT HHN 11/18/18 19:00 11/23/18 18:59 11/18/18 20:44 Aspirin (ASA) 81 mg DAILY ORAL 11/19/18 09:00 12/19/18 08:59 Ceftriaxone Sodium 1 gm/ Dextrose 55 ml @ 110 mls/hr Q24H IVPB 11/18/18 21:00 11/25/18 20:59 Dextrose (Dextrose 50%) 25 ml Q30M PRN IV Hypoglycemia 11/18/18 17:45 12/18/18 17:44 Dextrose (Dextrose 50%) 50 ml Q30M PRN IV Hypoglycemia 11/18/18 17:45 12/18/18 17:44 Ferrous Sulfate (Feosol) 325 mg TWICE A DAY ORAL 11/18/18 18:00 12/18/18 17:59 11/18/18 17:28 Glipizide (GlipiZIDE XL) 5 mg BID ORAL 11/18/18 18:00 12/18/18 17:59 11/18/18 17:28 Heparin Sodium (Porcine) (Heparin 5000 units/ml) 5,000 units EVERY 12 HOURS SUBQ 11/18/18 21:00 12/18/18 20:59 Insulin Aspart (NovoLOG) BEFORE MEALS AND HS SUBQ 11/18/18 21:00 12/18/18 20:59 Methylprednisolone Sodium Succinate (Solu-MEDROL) 60 mg EVERY 12 HOURS IVP 11/18/18 21:00 12/18/18 20:59 Tiotropium [place] (Spiriva Inhaler) 1 puff DAILY INH 11/19/18 09:00 12/19/18 08:59 Zolpidem Tartrate (Ambien) 5 mg HSPRN PRN ORAL Insomnia 11/18/18 16:15 11/25/18 16:14 Loki Beebe MD Nov 18, 2018 21:01
[2018-11-18] MEDS: Solu-MEDROL 125mg Inj IVP SCH (21:28)
[2018-11-18] MEDS: cefTRIAXone 1 GM in D5W 55 ML IVPB SCH (21:28)
[2018-11-18] MEDS: Heparin 5000 units/ml inj SUBQ SCH (21:31)
[2018-11-18] MEDS: NovoLOG Insulin Flexpen SUBQ SCH (21:32)
[2018-11-18] MEDS ORDERED: NovoLOG Insulin Flexpen SUBQ SCH (22:15)
[2018-11-19] VITALS: BP 120/74
[2018-11-19] MEDS ORDERED: Insulin Human Regular 100units/ml 3ml SUBQ SCH (00:30)
[2018-11-19] MEDS: Albuterol/Ipratropium 3ml neb HHN SCH ×5 (02:05→20:20)
[2018-11-19 04:00] VITALS: BP 129/75
[2018-11-19] MEDS: NovoLOG Insulin Flexpen SUBQ SCH ×4 (06:47→21:17)
[2018-11-19 08:00] VITALS: BP 138/72
[2018-11-19] MEDS: Solu-MEDROL 125mg Inj IVP SCH ×2 (08:25→21:19)
[2018-11-19] MEDS: Aspirin Baby 81mg ORAL SCH (08:25)
[2018-11-19] MEDS: Heparin 5000 units/ml inj SUBQ SCH ×2 (08:27→21:16)
--- NOTE | 2018-11-19 08:53 | Pulmonology Progress Note ---
Assessment/Plan Assessment/Plan IMPRESSION: 1. COPD with acute exacerbation. 2. Possible Pneumonia 3. Pulmonary congestion 4. Diabetes 5. Benign prostatic hyperplasia. 6. Chronic hypoxemia. 7. Chronic hypercapnia. RECOMMENDATION: 1. Monitor clinically for improvement; repeat imaging 2. IV Solu-Medrol as is 3. Monitor blood sugars, with steroid use 4. Respiratory care to continue 5. Empiric antibiotics for CAP 6. maintain home meds 7. Monitor further and assist with dispo Subjective Allergies: Coded Allergies: No Known Allergies (Verified , 09/14/07) Subjective overall same still with sob no congestion Objective Last 24 Hour Vital Signs Date Time Temp Pulse Resp B/P (MAP) Pulse Ox O2 Delivery O2 Flow Rate FiO2 11/19/18 04:00 98.3 83 18 129/75 (93) 98 11/19/18 03:27 79 11/19/18 02:13 84 18 95 Nasal Cannula 3.0 32 11/19/18 02:05 85 18 93 Nasal Cannula 3.0 32 11/19/18 00:00 98.4 84 20 120/74 (89) 96 11/18/18 23:39 82 20 93 Nasal Cannula 3.0 32 11/18/18 23:29 85 20 92 Nasal Cannula 3.0 32 11/18/18 23:17 83 11/18/18 21:00 Nasal Cannula 2.0 11/18/18 20:57 87 20 93 Nasal Cannula 3.0 32 11/18/18 20:49 95 22 90 Nasal Cannula 3.0 32 11/18/18 20:00 98.5 72 18 136/62 (86) 96 11/18/18 19:54 90 11/18/18 16:01 98.4 101 20 135/104 (114) 92 11/18/18 16:00 127 11/18/18 14:17 Nasal Cannula 3.0 Nasal Cannula 3.0 11/18/18 12:46 97.7 105 25 116/66 89 Room Air 4.0 11/18/18 10:28 97.7 106 18 122/60 92 11/18/18 09:45 106 28 91 Nasal Cannula 4.0 36 11/18/18 09:00 96 24 138/70 97 Nasal Cannula 3.0 11/18/18 09:00 96 24 Intake and Output 11/18/18 11/19/18 19:00 07:00 Intake Total 400 ml 55 ml Output Total 300 ml 600 ml Balance 100 ml -545 ml IV Total 400 ml 55 ml Output Urine Total 300 ml 600 ml # Voids 1 # Bowel Movements 1 Objective WDWN NAD reduced breath sounds bilaterally without rhonchi or wheeze [id number] without MRG NABS nontender no HSM no CCE nonfocal Microbiology Date/Time Source Procedure Growth Status 11/18/18 08:40 Nasal Nares Influenza Types A,B Antigen (SEN) - Final Complete Laboratory Tests 11/18/18 10:02: Urine Color Pale yellow, Urine Appearance Clear, Urine pH 7, Urine Specific [place] 1.005, Urine Protein 2+H, Urine Glucose (UA) 3+H, Urine Ketones Negative , Urine Blood 1+H, Urine Nitrite Negative, Urine Bilirubin Negative, Urine Urobilinogen Normal, Urine Leukocyte Esterase Negative, Urine RBC 0-2H, Urine WBC 0-2, Urine Squamous Epithelial Cells Occasional, Urine Bacteria Occasional Current Medications Medications (Trade) Dose Ordered Sig/Pedro Route PRN Reason Start Time Stop Time Status Last Admin Dose Admin Albuterol/ Ipratropium (Albuterol/ Ipratropium) 3 ml Q4HRT HHN 11/18/18 19:00 11/23/18 18:59 11/19/18 02:05 Aspirin (ASA) 81 mg DAILY ORAL 11/19/18 09:00 12/19/18 08:59 11/19/18 08:25 Ceftriaxone Sodium 1 gm/ Dextrose 55 ml @ 110 mls/hr Q24H IVPB 11/18/18 21:00 11/25/18 20:59 11/18/18 21:28 Dextrose (Dextrose 50%) 25 ml Q30M PRN IV Hypoglycemia 11/18/18 17:45 12/18/18 17:44 Dextrose (Dextrose 50%) 50 ml Q30M PRN IV Hypoglycemia 11/18/18 17:45 12/18/18 17:44 Ferrous Sulfate (Feosol) 325 mg TWICE A DAY ORAL 11/18/18 18:00 12/18/18 17:59 11/19/18 08:25 Glipizide (GlipiZIDE XL) 5 mg BID ORAL 11/18/18 18:00 12/18/18 17:59 11/19/18 08:25 Heparin Sodium (Porcine) (Heparin 5000 units/ml) 5,000 units EVERY 12 HOURS SUBQ 11/18/18 21:00 12/18/18 20:59 11/19/18 08:27 Insulin Aspart (NovoLOG) BEFORE MEALS AND HS SUBQ 11/18/18 21:00 12/18/18 20:59 11/19/18 06:47 Methylprednisolone Sodium Succinate (Solu-MEDROL) 60 mg EVERY 12 HOURS IVP 11/18/18 21:00 12/18/18 20:59 11/19/18 08:25 Tiotropium [place] (Spiriva Inhaler) 1 puff DAILY INH 11/19/18 09:00 12/19/18 08:59 Zolpidem Tartrate (Ambien) 5 mg HSPRN PRN ORAL Insomnia 11/18/18 16:15 11/25/18 16:14 Loki Beebe MD Nov 19, 2018 08:53
--- NOTE | 2018-11-19 09:00 | History and Physical Report ---
DATE OF ADMISSION: 11/18/2018 CHIEF COMPLAINT: COPD exacerbation and possible pneumonia/bronchitis. HISTORY OF PRESENT ILLNESS: The patient is a pleasant 83-year-old male, known to me from prior admissions. He has a history of COPD, hypertension, diabetes, and BPH. He presented with complaints of several days of worsening and progressive shortness of breath, cough, and congestion. According to the patient, he was well several days prior to admission, but he has noted the gradual onset of worsening cough, congestion, and shortness of breath. His cough has been productive. He is unclear if the phlegm has been clear or dark or green. He has had no ill contacts. Denies any fevers or chills. Because of continued worsening shortness of breath, he is now admitted for further inpatient evaluation and care. PAST MEDICAL HISTORY: As above. PAST SURGICAL HISTORY: None. CURRENT MEDICATIONS: Reconciled and reviewed. ALLERGIES: None. FAMILY HISTORY: None. SOCIAL HISTORY: Negative for alcohol or drugs. The patient was previously a smoker, but quit. REVIEW OF SYSTEMS: GENERAL: No fevers or chills. HEENT: No headaches or visual changes. CARDIOPULMONARY: No chest pain. Positive shortness of breath, cough, and congestion. GASTROINTESTINAL: No nausea or vomiting. GENITOURINARY: No urgency or frequency. MUSCULOSKELETAL: No joint pain or swelling. NEUROLOGIC: No history of seizures. PHYSICAL EXAMINATION: VITAL SIGNS: Temperature was 98, pulse 83, respirations 18, and blood pressure 129/75. GENERAL: The patient is well developed, in no apparent distress. HEART: Regular rate and rhythm. LUNGS: Significant for bilateral rhonchi and wheezes. ABDOMEN: Soft, nontender, and nondistended. EXTREMITIES: Without clubbing, cyanosis, or edema. LABORATORY AND IMAGING DATA: White count was 17,000, hemoglobin 12, hematocrit 37, and platelets of 241,000. Sodium was 136, potassium 4.5, chloride 98, bicarbonate 30, BUN 13, creatinine 1.2, and glucose of 359. Chest x-ray showed chronic lung disease. ASSESSMENT: This is a pleasant male shortness of breath secondary to chronic obstructive pulmonary disease exacerbation. 1. Chronic obstructive pulmonary disease exacerbation. 2. Possible bronchitis versus pneumonia. 3. Diabetes. 4. Hypertension. 5. Benign prostatic hypertrophy. PLAN: 1. IV antibiotics. 2. IV steroids. 3. Respiratory treatments. 4. Monitor chest x-ray. 5. Continue supplemental oxygen. 6. Monitor blood sugars. 7. Cover with sliding scale. 8. DVT and stress ulcer prophylaxis. Geovanni Castillo M.D. DR: BASIA JOB#: [id number] CC:
[2018-11-19 12:00] VITALS: BP 133/75
[2018-11-19 15:55] VITALS: BP 128/74
[2018-11-19 20:00] VITALS: BP 154/92
[2018-11-19] MEDS: cefTRIAXone 1 GM in D5W 55 ML IVPB SCH (21:19)
[2018-11-20] VITALS: BP 150/88
[2018-11-20] MEDS: Albuterol/Ipratropium 3ml neb HHN SCH ×7 (00:32→23:24)
[2018-11-20 04:00] VITALS: BP 137/77
[2018-11-20] MEDS: NovoLOG Insulin Flexpen SUBQ SCH ×4 (06:34→20:49)
[2018-11-20 08:00] VITALS: BP 128/76
[2018-11-20] MEDS: Solu-MEDROL 125mg Inj IVP SCH ×2 (08:14→20:46)
[2018-11-20] MEDS: Aspirin Baby 81mg ORAL SCH (08:14)
[2018-11-20] MEDS: Heparin 5000 units/ml inj SUBQ SCH ×2 (08:17→20:50)
--- NOTE | 2018-11-20 11:54 | Pulmonology Progress Note ---
Assessment/Plan Assessment/Plan IMPRESSION: 1. COPD with acute exacerbation. 2. Possible Pneumonia 3. Pulmonary congestion 4. Diabetes 5. Benign prostatic hyperplasia. 6. Chronic hypoxemia. 7. Chronic hypercapnia. RECOMMENDATION: 1. Monitor clinically for improvement; repeat imaging pending 2. IV Solu-Medrol and taper 3. Monitor blood sugars, with steroid use- elevated 4. Respiratory care to continue 5. Empiric antibiotics for CAP 6. maintain home meds and optimize 7. Monitor further and assist with dispo impression, plan, and exam edited and reviewed in detail care discussed with RN Subjective Allergies: Coded Allergies: No Known Allergies (Verified , 09/14/07) Subjective overall same baseline sob no congestion Objective Last 24 Hour Vital Signs Date Time Temp Pulse Resp B/P (MAP) Pulse Ox O2 Delivery O2 Flow Rate FiO2 11/20/18 11:14 91 20 98 Nasal Cannula 3.0 32 11/20/18 11:06 84 18 95 Nasal Cannula 3.0 32 11/20/18 09:00 Nasal Cannula 2.0 Nasal Cannula 3.0 11/20/18 08:20 87 20 97 Nasal Cannula 3.0 32 11/20/18 08:10 87 20 96 Nasal Cannula 3.0 32 11/20/18 08:00 80 11/20/18 08:00 98.0 85 20 128/76 (93) 96 11/20/18 04:00 82 11/20/18 04:00 98.2 83 18 137/77 (97) 94 11/20/18 03:18 Nasal Cannula 3.0 32 11/20/18 03:17 Nasal Cannula 3.0 32 11/20/18 00:43 89 20 98 Nasal Cannula 3.0 32 11/20/18 00:31 85 20 95 Nasal Cannula 3.0 32 11/20/18 00:00 97.3 92 19 150/88 (108) 95 11/20/18 00:00 89 11/19/18 21:00 Nasal Cannula 2.0 Nasal Cannula 3.0 11/19/18 20:31 93 20 97 Nasal Cannula 3.0 32 11/19/18 20:20 96 20 93 Nasal Cannula 3.0 32 11/19/18 20:00 100 11/19/18 20:00 98.2 105 20 154/92 (112) 95 11/19/18 16:00 97 11/19/18 15:55 98.1 99 20 128/74 (92) 95 11/19/18 14:55 84 18 98 Nasal Cannula 3.0 32 11/19/18 14:48 86 20 95 Nasal Cannula 3.0 32 11/19/18 12:00 94 11/19/18 12:00 97.8 99 18 133/75 (94) 93 Intake and Output 11/19/18 11/20/18 19:00 07:00 Intake Total 840 ml Balance 840 ml Intake Oral 840 ml # Voids 2 3 # Bowel Movements 1 Objective WDWN NAD reduced breath sounds bilaterally without rhonchi or wheeze [id number] without MRG NABS nontender no HSM no CCE nonfocal Microbiology Date/Time Source Procedure Growth Status 11/18/18 08:45 Blood Blood Culture - Preliminary NO GROWTH AFTER 48 HOURS Resulted 11/18/18 08:30 Blood Blood Culture - Preliminary NO GROWTH AFTER 48 HOURS Resulted 11/18/18 08:40 Nasal Nares Influenza Types A,B Antigen (SEN) - Final Complete Current Medications Medications (Trade) Dose Ordered Sig/Pedro Route PRN Reason Start Time Stop Time Status Last Admin Dose Admin Albuterol/ Ipratropium (Albuterol/ Ipratropium) 3 ml Q4HRT HHN 11/18/18 19:00 11/23/18 18:59 11/20/18 11:06 Aspirin (ASA) 81 mg DAILY ORAL 11/19/18 09:00 12/19/18 08:59 11/20/18 08:14 Ceftriaxone Sodium 1 gm/ Dextrose 55 ml @ 110 mls/hr Q24H IVPB 11/18/18 21:00 11/25/18 20:59 11/19/18 21:19 Dextrose (Dextrose 50%) 25 ml Q30M PRN IV Hypoglycemia 11/18/18 17:45 12/18/18 17:44 Dextrose (Dextrose 50%) 50 ml Q30M PRN IV Hypoglycemia 11/18/18 17:45 12/18/18 17:44 Ferrous Sulfate (Feosol) 325 mg TWICE A DAY ORAL 11/18/18 18:00 12/18/18 17:59 11/20/18 08:15 Glipizide (GlipiZIDE XL) 5 mg BID ORAL 11/18/18 18:00 12/18/18 17:59 11/20/18 08:14 Heparin Sodium (Porcine) (Heparin 5000 units/ml) 5,000 units EVERY 12 HOURS SUBQ 11/18/18 21:00 12/18/18 20:59 11/20/18 08:17 Insulin Aspart (NovoLOG) BEFORE MEALS AND HS SUBQ 11/18/18 21:00 12/18/18 20:59 11/20/18 06:34 Methylprednisolone Sodium Succinate (Solu-MEDROL) 60 mg EVERY 12 HOURS IVP 11/18/18 21:00 12/18/18 20:59 11/20/18 08:14 Tiotropium [place] (Spiriva Inhaler) 1 puff DAILY INH 11/19/18 09:00 12/19/18 08:59 11/20/18 10:30 Zolpidem Tartrate (Ambien) 5 mg HSPRN PRN ORAL Insomnia 11/18/18 16:15 11/25/18 16:14 Loki Beebe MD Nov 20, 2018 11:54
[2018-11-20 12:00] VITALS: BP 140/74
--- NOTE | 2018-11-20 13:30 | General Progress Note ---
Assessment/Plan Problem List: (1) Respiratory distress ICD Codes: R06.03 - Respiratory distress SNOMED: 723667983 (2) Pneumonia ICD Codes: J18.9 - Pneumonia SNOMED: 897052601 Qualifiers: Qualified Codes: J18.1 - Lobar pneumonia, unspecified organism (3) COPD exacerbation ICD Codes: J44.1 - COPD exacerbation SNOMED: 173296153 Status: stable, progressing Assessment/Plan resp rx iv steroids abx Subjective ROS Limited/Unobtainable: No Constitutional: Reports: malaise, weakness HEENT: Reports: no symptoms Cardiovascular: Reports: no symptoms Respiratory: Reports: cough, shortness of breath, sputum Gastrointestinal/Abdominal: Reports: no symptoms Genitourinary: Reports: no symptoms Neurologic/Psychiatric: Reports: no symptoms Endocrine: Reports: no symptoms Allergies: Coded Allergies: No Known Allergies (Verified , 09/14/07) All Systems: reviewed and negative except above Subjective better today. decrease sob, cough and congestion. decreased wheezing. no fever. on iv steroids and abx Objective Last 24 Hour Vital Signs Date Time Temp Pulse Resp B/P (MAP) Pulse Ox O2 Delivery O2 Flow Rate FiO2 11/20/18 11:14 91 20 98 Nasal Cannula 3.0 32 11/20/18 11:06 84 18 95 Nasal Cannula 3.0 32 11/20/18 10:30 89 18 96 Nasal Cannula 3.0 32 11/20/18 10:30 89 18 96 Nasal Cannula 3.0 32 11/20/18 09:00 Nasal Cannula 2.0 Nasal Cannula 3.0 11/20/18 08:20 87 20 97 Nasal Cannula 3.0 32 11/20/18 08:10 87 20 96 Nasal Cannula 3.0 32 11/20/18 08:00 80 11/20/18 08:00 98.0 85 20 128/76 (93) 96 11/20/18 04:00 82 11/20/18 04:00 98.2 83 18 137/77 (97) 94 11/20/18 03:18 Nasal Cannula 3.0 32 11/20/18 03:17 Nasal Cannula 3.0 32 11/20/18 00:43 89 20 98 Nasal Cannula 3.0 32 11/20/18 00:31 85 20 95 Nasal Cannula 3.0 32 11/20/18 00:00 97.3 92 19 150/88 (108) 95 11/20/18 00:00 89 11/19/18 21:00 Nasal Cannula 2.0 Nasal Cannula 3.0 11/19/18 20:31 93 20 97 Nasal Cannula 3.0 32 11/19/18 20:20 96 20 93 Nasal Cannula 3.0 32 11/19/18 20:00 100 11/19/18 20:00 98.2 105 20 154/92 (112) 95 11/19/18 16:00 97 11/19/18 15:55 98.1 99 20 128/74 (92) 95 11/19/18 14:55 84 18 98 Nasal Cannula 3.0 32 11/19/18 14:48 86 20 95 Nasal Cannula 3.0 32 Intake and Output 11/19/18 11/20/18 19:00 07:00 Intake Total 840 ml Balance 840 ml Intake Oral 840 ml # Voids 2 3 # Bowel Movements 1 Height (Feet): 5 Height (Inches): 10.00 Weight (Pounds): 186 General Appearance: WD/WN, alert Neck: supple Cardiovascular: normal rate Respiratory/Chest: chest wall non-tender, lungs clear, normal breath sounds Abdomen: normal bowel sounds, non tender, soft, no organomegaly Edema: no edema noted Arm (L), no edema noted Arm (R), no edema noted Leg (L), no edema noted Leg (R), no edema noted Pedal (L), no edema noted Pedal (R), no edema noted Generalized Geovanni Castillo MD Nov 20, 2018 13:30
[2018-11-20 16:00] VITALS: BP 129/72
[2018-11-20 20:00] VITALS: BP 137/75
[2018-11-20] MEDS: cefTRIAXone 1 GM in D5W 55 ML IVPB SCH (20:46)
[2018-11-20] MEDS ORDERED: Tubing IV Secondary IV ONE (22:44)
[2018-11-21] VITALS: BP 127/76
--- NOTE | 2018-11-21 00:40 | Diagnostic Imaging Report ---
EXAM: XR Chest, 1 View CLINICAL HISTORY: COPD TECHNIQUE: Frontal view of the chest. COMPARISON: 11/18/2018 FINDINGS: Lungs: COPD. Small amount of bibasilar airspace opacities, similar to the prior study. Scarring over bilateral upper lung zones. Pleural space: Unremarkable. No pneumothorax. Heart: Unremarkable. No cardiomegaly. Mediastinum: Unremarkable. Bones/joints: Osteopenia. Moderate degenerative changes. IMPRESSION: No substantial change
[2018-11-21] MEDS: Albuterol/Ipratropium 3ml neb HHN SCH ×3 (02:57→11:00)
[2018-11-21 04:00] VITALS: BP 131/75
[2018-11-21] MEDS: NovoLOG Insulin Flexpen SUBQ SCH ×2 (06:25→12:14)
[2018-11-21 08:00] VITALS: BP 150/92
[2018-11-21] MEDS: Solu-MEDROL 125mg Inj IVP SCH (08:05)
[2018-11-21] MEDS: Aspirin Baby 81mg ORAL SCH (08:05)
[2018-11-21] MEDS: Heparin 5000 units/ml inj SUBQ SCH (08:07)
--- NOTE | 2018-11-21 09:11 | Pulmonology Progress Note ---
Assessment/Plan Assessment/Plan IMPRESSION: 1. COPD with acute exacerbation. 2. Possible Pneumonia 3. Pulmonary congestion 4. Diabetes 5. Benign prostatic hyperplasia. 6. Chronic hypoxemia. 7. Chronic hypercapnia. RECOMMENDATION: 1. dc today 2. medrol silvino 3. Monitor blood sugars, with steroid use 4. Respiratory care to continue 5. Empiric antibiotics by mouth 6. maintain home meds and optimize 7. CT chest if cxr not clear; will evaluate next week impression, plan, and exam edited and reviewed in detail care discussed with RN Subjective Allergies: Coded Allergies: No Known Allergies (Verified , 09/14/07) Subjective overall same baseline sob no congestion would like to go home Objective Last 24 Hour Vital Signs Date Time Temp Pulse Resp B/P (MAP) Pulse Ox O2 Delivery O2 Flow Rate FiO2 11/21/18 08:42 81 18 94 Nasal Cannula 3.0 32 11/21/18 08:40 81 18 94 Nasal Cannula 3.0 32 11/21/18 08:37 88 20 94 Nasal Cannula 3.0 32 11/21/18 08:21 80 18 96 Nasal Cannula 3.0 32 11/21/18 04:00 91 11/21/18 04:00 97.3 91 20 131/75 (93) 96 11/21/18 03:07 88 20 94 Nasal Cannula 3.0 32 11/21/18 02:57 88 18 94 Nasal Cannula 3.0 32 11/21/18 00:00 90 11/21/18 00:00 98.2 89 20 127/76 (93) 98 11/20/18 23:34 92 20 93 Nasal Cannula 3.0 32 11/20/18 23:24 85 18 93 Nasal Cannula 3.0 32 11/20/18 22:00 97 11/20/18 21:00 Nasal Cannula 3.0 11/20/18 20:00 97.0 89 20 137/75 (95) 99 11/20/18 19:53 97 20 98 Nasal Cannula 3.0 32 11/20/18 19:45 92 18 92 Nasal Cannula 3.0 32 11/20/18 16:00 93 11/20/18 16:00 97.9 98 20 129/72 (91) 93 11/20/18 15:32 89 20 98 Nasal Cannula 3.0 32 11/20/18 15:23 86 18 95 Nasal Cannula 3.0 32 11/20/18 12:00 92 11/20/18 12:00 98.1 93 21 140/74 (96) 92 11/20/18 11:14 91 20 98 Nasal Cannula 3.0 32 11/20/18 11:06 84 18 95 Nasal Cannula 3.0 32 11/20/18 10:30 89 18 96 Nasal Cannula 3.0 32 11/20/18 10:30 89 18 96 Nasal Cannula 3.0 32 Intake and Output 11/20/18 11/21/18 19:00 07:00 Intake Total 1000 ml 175 ml Balance 1000 ml 175 ml Intake Oral 1000 ml 120 ml IV Total 55 ml # Voids 2 2 Objective WDWN NAD reduced breath sounds bilaterally without rhonchi or wheeze [id number] without MRG NABS nontender no HSM no CCE nonfocal Current Medications Medications (Trade) Dose Ordered Sig/Pedro Route PRN Reason Start Time Stop Time Status Last Admin Dose Admin Albuterol/ Ipratropium (Albuterol/ Ipratropium) 3 ml Q4HRT HHN 11/18/18 19:00 11/23/18 18:59 11/21/18 08:21 Aspirin (ASA) 81 mg DAILY ORAL 11/19/18 09:00 12/19/18 08:59 11/21/18 08:05 Ceftriaxone Sodium 1 gm/ Dextrose 55 ml @ 110 mls/hr Q24H IVPB 11/18/18 21:00 11/25/18 20:59 11/20/18 20:46 Dextrose (Dextrose 50%) 25 ml Q30M PRN IV Hypoglycemia 11/18/18 17:45 12/18/18 17:44 Dextrose (Dextrose 50%) 50 ml Q30M PRN IV Hypoglycemia 11/18/18 17:45 12/18/18 17:44 Ferrous Sulfate (Feosol) 325 mg TWICE A DAY ORAL 11/18/18 18:00 12/18/18 17:59 11/21/18 08:05 Glipizide (GlipiZIDE XL) 5 mg BID ORAL 11/18/18 18:00 12/18/18 17:59 11/21/18 08:05 Heparin Sodium (Porcine) (Heparin 5000 units/ml) 5,000 units EVERY 12 HOURS SUBQ 11/18/18 21:00 12/18/18 20:59 11/21/18 08:07 Insulin Aspart (NovoLOG) BEFORE MEALS AND HS SUBQ 11/18/18 21:00 12/18/18 20:59 11/21/18 06:25 Methylprednisolone Sodium Succinate (Solu-MEDROL) 60 mg EVERY 12 HOURS IVP 11/18/18 21:00 12/18/18 20:59 11/21/18 08:05 Tiotropium [place] (Spiriva Inhaler) 1 puff DAILY INH 11/19/18 09:00 12/19/18 08:59 11/21/18 08:39 Zolpidem Tartrate (Ambien) 5 mg HSPRN PRN ORAL Insomnia 11/18/18 16:15 11/25/18 16:14 Loki Beebe MD Nov 21, 2018 09:11
[2018-11-21 12:00] VITALS: BP 135/84
--- NOTE | 2018-11-21 21:30 | Discharge Summary ---
DATE OF ADMISSION: 11/18/2018 DATE OF DISCHARGE: 11/21/2018 ADMISSION DIAGNOSES: 1. Chronic obstructive pulmonary disease exacerbation. 2. Bronchitis. 3. Possible community-acquired pneumonia. 4. Hypertension. DISCHARGE DIAGNOSES: 1. Chronic obstructive pulmonary disease exacerbation. 2. Bronchitis. 3. Possible community-acquired pneumonia. 4. Hypertension. HOSPITAL COURSE: The patient is a pleasant male, admitted with complaints of shortness of breath. He was diagnosed with COPD exacerbation. He received intravenous steroids and IV antibiotics for possible pneumonia. The patient improved and on discharge, he was stable to be discharged with steroid taper. He will continue on breathing treatments and regular cardiac medications. He will be followed by his auto air conditioning installer in one to two weeks. DISCHARGE MEDICATIONS: Please see discharge medication list for discharge medications. DIET: Cardiac. ACTIVITY: Ad-kirby. Geovanni Castillo M.D. DR: Ector JOB#: [id number] CC:
== END 2018-11-21 14:09 | disposition home health service (06) | DRG 190 ==
LOC: EMR 08:37 → EDBEDREQ 09:52 → 2E 10:03 → EDBEDREQ 11:28
DX: J44.0 Chronic obstructive pulmonary disease with (acute) lower respiratory infection (principal); J18.9 Pneumonia, unspecified organism; J44.1 Chronic obstructive pulmonary disease with (acute) exacerbation; J40 Bronchitis, not specified as acute or chronic; I10 Essential (primary) hypertension; E11.9 Type 2 diabetes mellitus without complications; N40.0 Benign prostatic hyperplasia without lower urinary tract symptoms; E78.00 Pure hypercholesterolemia, unspecified; Z87.891 Personal history of nicotine dependence; R09.02 Hypoxemia; R06.89 Other abnormalities of breathing
CPT/HCPCS: 36415; 71045; 80053; 81003; 82550; 82553; 82962; 83605; 83880; 84484; 85007; 85025; 86710; 87040; 93005; 94640; 94664; 96365; 96368; 96375; 99285; J1815; J7620

== ENCOUNTER 2021-01-15 11:15 | Inpatient (IN) | payer BC, MEDICARE ==
[~2021-01-15] VITALS: Ht 182.9 cm; Wt 74.8 kg
[2021-01-15] VITALS (7 sets, daily range): BP systolic 112–125; BP diastolic 56–80
[~2021-01-15 11:15] MED LIST changes: +FERROUS SULFAT325 MG ORAL; +MEDROL DOSEPAK4 MG ORAL; +RAPAFLO8 MG ORAL; +SYMBICORT 16010.2 G1 IH
[2021-01-15] MEDS ORDERED: Cefepime HCl 2 GM in NS 110 ML IV ONE (11:30)
[2021-01-15] MEDS ORDERED: Vancomycin 1 GM in NS 275 ML IV ONE (11:30)
--- NOTE | 2021-01-15 12:01 | NUR ---
Patient presented to ER via family drop-off with c/o fatigue, cough, SOB x 2 days. He presented weak, lethargic and unable to ambulate needing assistance for transfer to [facility]. NKA Presented with tachcycardia-107, resp-40, O2-32, B/P- 111/56, T-100.5 rectal. 20G started [id number] F/C inserted 2L NS adminstered and running wide open BS-234 Flu swab sent Covid swab sent
[2021-01-15] MEDS ORDERED: METFORMIN HCL500 M1 ORAL (12:06)
[2021-01-15] MEDS ORDERED: FLOMAX0.4 MG ORAL (12:06)
[2021-01-15] MEDS ORDERED: DONEPEZIL HCL5 MG ORAL (12:06)
[2021-01-15] MEDS ORDERED: MYSOLINE50 M1 PO (12:06)
--- NOTE | 2021-01-15 12:07 | Emergency Room Report ---
History of Present Illness General Chief Complaint: Dyspnea/Respdistress Source: Patient Present Illness HPI Patient is an 85-year-old male presented for increased fever and generalized weakness. Associated increased shortness of breath. Prior history of COPD. Reportedly had been having increased lethargy. Previous hospitalizations for COPD in the past. Patient is followed by Dr. Beebe. Patient is reportedly full code. 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 Hx Cancer: No Hx Gastrointestinal Problems: No Hx Dialysis: No Hx Neurological Problems: No Hx Cerebrovascular Accident: No Review of Systems All Other Systems: limited - Review of systems: Review systems is limited by patient's being a poor historian Physical Exam Vital Signs Date Time Temp Pulse Resp B/P (MAP) Pulse Ox O2 Delivery O2 Flow Rate FiO2 01/15/21 11:54 100.6 107 30 110/60 (77) 38 Room Air Sp02 EP Interpretation: abnormal General Appearance: alert, moderate distress, Chronically Ill ENT: dry mucus membranes Neck: limited range of motion Respiratory: decreased breath sounds, accessory muscle use, speaking full sentences Cardiovascular #1: no edema Gastrointestinal: normal inspection, non tender, soft Genitourinary: no CVA tenderness Musculoskeletal: decreased range of motion Neurologic: motor weakness, other - Alert, responsive, moves all extremities Psychiatric: normal inspection Skin: no rash Procedures Critical Care Time Critical Care Time Patient had a critical medical condition which untreated could potentially result in life or limb threatening injury. Total critical care time excluding procedures approximately 45 minutes. Medical Decision Making Diagnostic Impression: Primary Impression: Pneumonia Additional Impression: COPD exacerbation ER Course Patient presents for increased generalized weakness and fever. Differential diagnosis include was not limited to sepsis, coronavirus infection, pneumonia, electrolyte abnormality, dehydration among others. Because of complexity of patient's case laboratory tests and imaging studies were ordered. Patient was noted to have significantly diminished oxygen saturation on room air patient is saturating approximately 30%. Patient was started on supplemental oxygen immediately. Is placed on a mammography supervisor. Fluid resuscitation was initiated. Patient was somewhat febrile and chest x-ray does show some increased infiltrate compared to baseline. Patient was given IV antibiotics. Arterial blood gas was drawn due to patient's significant hypoxemia.patient was noted on BiPAP. Arterial blood gas showed respiratory acidosis. Dr. Loki Beebe was contacted for inpatient management. Labs Test 01/15/21 11:45 01/15/21 12:02 01/15/21 12:10 White Blood Count 16.3 K/UL (4.8-10.8) Red Blood Count 4.38 M/UL (4.70-6.10) Hemoglobin 11.9 G/DL (14.2-18.0) Hematocrit 39.8 % (42.0-52.0) Mean Corpuscular Volume 91 FL (80-99) Mean Corpuscular Hemoglobin 27.2 PG (27.0-31.0) Mean Corpuscular Hemoglobin Concent 29.9 G/DL (32.0-36.0) Red Cell Distribution Width 13.4 % (11.6-14.8) Platelet Count 262 K/UL (150-450) Mean Platelet Volume 7.0 FL (6.5-10.1) Neutrophils (%) (Auto) % (45.0-75.0) Lymphocytes (%) (Auto) % (20.0-45.0) Monocytes (%) (Auto) % (1.0-10.0) Eosinophils (%) (Auto) % (0.0-3.0) Basophils (%) (Auto) % (0.0-2.0) Differential Total Cells Counted 100 Neutrophils % (Manual) 84 % (45-75) Lymphocytes % (Manual) 9 % (20-45) Monocytes % (Manual) 4 % (1-10) Eosinophils % (Manual) 0 % (0-3) Basophils % (Manual) 0 % (0-2) Band Neutrophils 3 % (0-8) Platelet Estimate Adequate Platelet Morphology Normal Red Blood Cell Morphology Hypochromasia 1+ Urine Color Pale yellow Urine Appearance Clear Urine pH 6 (4.5-8.0) Urine Specific [place] 1.015 (1.005-1.035) Urine Protein 2+ (NEGATIVE) Urine Glucose (UA) Negative (NEGATIVE) Urine Ketones 2+ (NEGATIVE) Urine Blood 5+ (NEGATIVE) Urine Nitrite Negative (NEGATIVE) Urine Bilirubin Negative (NEGATIVE) Urine Urobilinogen Normal MG/DL (0.0-1.0) Urine Leukocyte Esterase 1+ (NEGATIVE) Urine RBC 15-20 /HPF (0 - 0) Urine WBC 2-4 /HPF (0 - 0) Urine Squamous Epithelial Cells Occasional /LPF Urine Bacteria Few /HPF (NONE) Sodium Level 139 MMOL/L (136-145) Potassium Level 4.7 MMOL/L (3.5-5.1) Chloride Level 101 MMOL/L (98-107) Carbon Dioxide Level 29 MMOL/L (21-32) Anion Gap 9 mmol/L (5-15) Blood Urea Nitrogen 11 mg/dL (7-18) Creatinine 1.2 MG/DL (0.55-1.30) Estimat Glomerular Filtration Rate > 60 mL/min (>60) Glucose Level 224 MG/DL (74-106) Lactic Acid Level 2.30 mmol/L (0.4-2.0) Calcium Level 10.0 MG/DL (8.5-10.1) Phosphorus Level 3.2 MG/DL (2.5-4.9) Magnesium Level 1.8 MG/DL (1.8-2.4) Total Bilirubin 0.4 MG/DL (0.2-1.0) Aspartate Amino Transf (AST/SGOT) 15 U/L (15-37) Alanine Aminotransferase (ALT/SGPT) 17 U/L (12-78) Alkaline Phosphatase 103 U/L (46-116) Total Creatine Kinase 20 U/L (26-308) Creatine Kinase MB 0.7 NG/ML (0.0-3.6) Creatine Kinase MB Relative Index 3.5 Troponin I 0.023 ng/mL (0.000-0.056) Pro-B-Type Natriuretic Peptide 2090 pg/mL (0-125) Total Protein 8.1 G/DL (6.4-8.2) Albumin 2.4 G/DL (3.4-5.0) Globulin 5.7 g/dL Albumin/Globulin Ratio 0.4 (1.0-2.7) Arterial Blood pH 7.220 (7.350-7.450) Arterial Blood Partial Pressure CO2 68.1 mmHg (35.0-45.0) Arterial Blood Partial Pressure O2 201.5 mmHg (75.0-100.0) Arterial Blood HCO3 27.2 mmol/L (22.0-26.0) Arterial Blood Oxygen Saturation 98.5 % (95-100) Arterial Blood Base Excess -1.6 (-2-2) Colt Test Positive EKG Diagnostic Results Rate: tachycardiac Rhythm: NSR ST Segments: no acute changes Last Vital Signs Date Time Temp Pulse Resp B/P (MAP) Pulse Ox O2 Delivery O2 Flow Rate FiO2 01/15/21 11:54 100.6 107 30 110/60 (77) 38 Room Air Status: unchanged Disposition: ADMITTED INPATIENT Condition: Critical Referrals: Loki Beebe MD (PCP) Primitivo Cruz MD Jan 15, 2021 12:07
[2021-01-15 12:18] LABS: HEMATOCRIT 39.8 % (42.0-52.0); HEMOGLOBIN 11.9 G/DL (14.2-18.0); MEAN CORPUSCULAR VOLUME 91 FL (80-99); PLATELET COUNT 262 K/UL (150-450); RED BLOOD COUNT 4.38 M/UL (4.70-6.10); RED CELL DISTRIBUTION WIDTH 13.4 % (11.6-14.8); WHITE BLOOD COUNT 16.3 K/UL (4.8-10.8)
[2021-01-15 12:22] LABS: ANION GAP 9 mmol/L (5-15); BLOOD UREA NITROGEN 11 mg/dL (7-18); CARBON DIOXIDE 29 MMOL/L (21-32); CHLORIDE 101 MMOL/L (98-107); CREATININE 1.2 MG/DL (0.55-1.30); POTASSIUM 4.7 MMOL/L (3.5-5.1); SODIUM 139 MMOL/L (136-145)
[2021-01-15 12:32] LABS: APPEARANCE,URINE CLEAR; BILIRUBIN, URINE NEGATIVE (NEGATIVE); COLOR,URINE PALE YELLOW; GLUCOSE, URINE (UA) NEGATIVE (NEGATIVE); KETONES,URINE 2+ (NEGATIVE); LEUKOCYTE ESTERASE ,URINE 1+ (NEGATIVE); NITRITE,URINE NEGATIVE (NEGATIVE); PH,URINE 6 (4.5-8.0); PROTEIN,URINE 2+ (NEGATIVE); UROBILINOGEN,URINE NORMAL MG/DL (0.0-1.0)
--- NOTE | 2021-01-15 12:34 | Diagnostic Imaging Report ---
Indication: Reason For Exam: SOB Technique: One view of the chest Comparison: 11/20/2018 Findings: Again demonstrated is hyperinflation, upper lobe bullous changes, scarring and volume loss with upward retraction of the torsten. Interim development of parenchymal infiltrates in the left mid and upper lung and the right mid to upper lung. The heart size is normal. The pleural spaces are clear Impression: Bilateral infiltrates, left greater than right Chronic changes as described
[2021-01-15 12:38] LABS: ALANINE AMINOTRANSFERASE 17 U/L (12-78); ALBUMIN 2.4 G/DL (3.4-5.0); ALBUMIN/GLOBULIN RATIO 0.4 (1.0-2.7); ALKALINE PHOSPHATASE 103 U/L (46-116); ASPARTATE AMINO TRANSFERASE 15 U/L (15-37); BILIRUBIN,TOTAL 0.4 MG/DL (0.2-1.0); CKMB 0.7 NG/ML (0.0-3.6); CREATINE KINASE 20 U/L (26-308); PHOSPHORUS 3.2 MG/DL (2.5-4.9)
--- NOTE | 2021-01-15 12:38 | NUR ---
pt still increased WOB and SOB. pt placed on bipap at 1235. 15/5, 40% O2. RT at bedside.
--- NOTE | 2021-01-15 14:40 | NUR ---
attempted to call report, rn busy. rn to call back.
--- NOTE | 2021-01-15 14:56 | NUR ---
called report to rn in SDU
--- NOTE | 2021-01-15 16:00 | NUR ---
NURSE NOTES: Received report from FLACO Sosa. Patient transferred from ED to SDU. Endorsed patient unconscious when arrived at ED, now awake, confuse. Open eyes spontaneously, follow simple command, fatigue. SR with HR 90, On BIPAP 15/5 Fio2 30%, O2 sat 92% at this time, Patient warm to touch, quality assurance monitor final applied, IV on right AC 18G, left AC 20G, asymptomatic, paten, intact. Murillo Catheter inserted ED, draining well to gravity, yellow colored urine. Skin assessed, no open wound, skin is intact except left 1st toenail extraction, no bleeding at this time, dry gauze applied. Patient on PUI per Dr. Beebe. Bed in lowest position, side rails uxp3, call light within reach, bed alarm on, Will continue to monitor.
--- NOTE | 2021-01-15 16:05 | NUR ---
NURSE NOTES: Called Family member, Kurt, regarding past medical history and medication.
--- NOTE | 2021-01-15 16:16 | NUR ---
NURSE NOTES: Paged Dr. Beebe for admission order, awaiting for callback.
[2021-01-15] MEDS ORDERED: YUPELRI175 MCG/3 IH (16:29)
[2021-01-15] MEDS ORDERED: SULFAMETHOXAZO1 EAC1 ORAL (16:29)
--- NOTE | 2021-01-15 17:00 | NUR ---
NURSE NOTES: Received admission order per Dr. Beebe. Order noted, entered, and carried out.
[2021-01-15] MEDS: Bactrim SS Tab ORAL SCH (18:00)
[2021-01-15] MEDS ORDERED: dexAMETHasone 10mg/ml Inj IV SCH (18:00)
[2021-01-15] MEDS: metFORMIN 500mg tab ORAL SCH (18:00)
--- NOTE | 2021-01-15 18:21 | NUR ---
NURSE NOTES: Dr. Beebe made aware of ABG result, no change, no new order received at this time. Patient on BIPAP 15/5 Fio2 50%. No active s/s cardiac, respiratory distress noticed at this time, Will continue to monitor.
--- NOTE | 2021-01-15 18:30 | NUR ---
NURSE NOTES: COVID PCR swab , sent to lab.
[2021-01-15] MEDS: D5NS 1,000 ML IV SCH (18:31)
[2021-01-15] MEDS ORDERED: cefTRIAXone 1 GM in D5W 55 ML IVPB SCH (19:00)
--- NOTE | 2021-01-15 19:10 | NUR ---
NURSE NOTES: Received patient from FLACO Recinos. patient is awake in bed, fatigue. sinus rhythm on the monitor. on Bipap 15/5 FiO2 50% saturation 98%. irwin in place draining well to gravity. Right AC and Left AC IV access running D5NS @100. bed to lowest position and locked. call light within easy reach. side rails up x2. will continue plan of care.
--- NOTE | 2021-01-15 19:10 | NUR ---
NURSE HAND-OFF REPORT: Important Events on Shift: admitted to SDU Patient Status: stable/guarded Diet: CCHO med, on BIPAP now on IVF at this time Pending Orders: na Pending Results/Labs:COVID PCR Pending MD notification:na Latest Vital Signs: Temperature 98.6 , Pulse 88 , B/P 122 /80 , Respiratory Rate 28 , O2 SAT 100 , Bi-pap, O2 Flow Rate 15.0 . Vital Sign Comment: stable EKG Rhythm: Sinus Rhythm Rhythm change?: MD Notified?: - MD Response: Latest Franco Fall Score: 45 Fall Risk: High Risk Safety Measures: Call light Within Reach, Bed Alarm Zone 2, Side Rails Side Rails x2, Bed position Low and Locked. Fall Precautions: Yellow Socks Yellow Gown Door Sign Patient Fall Education Report given to FLACO Landers.
[2021-01-15] MEDS: dexAMETHasone 10mg/ml Inj IV SCH (20:31)
[2021-01-15] MEDS: Atorvastatin 80mg tab ORAL SCH (20:31)
[2021-01-15] MEDS: Tamsulosin 0.4mg cap ORAL SCH (20:31)
[2021-01-15] MEDS: Donepezil 5mg Tab ORAL SCH (20:31)
[2021-01-15] MEDS: cefTRIAXone 1 GM in D5W 55 ML IVPB SCH (20:31)
[2021-01-15] MEDS: NovoLOG Insulin Flexpen SUBQ SCH (20:49)
[2021-01-16] VITALS: BP 101/53
--- NOTE | 2021-01-16 03:25 | NUR ---
NURSE NOTES: bed bath performed. no BM. vital signs stable.
[2021-01-16 04:00] VITALS: BP 125/70
[2021-01-16] MEDS: D5NS 1,000 ML IV SCH ×2 (04:00→14:21)
[2021-01-16 05:05] LABS: HEMATOCRIT 35.2 % (42.0-52.0); HEMOGLOBIN 10.9 G/DL (14.2-18.0); MEAN CORPUSCULAR VOLUME 92 FL (80-99); PLATELET COUNT 260 K/UL (150-450); RED BLOOD COUNT 3.84 M/UL (4.70-6.10); WHITE BLOOD COUNT 12.6 K/UL (4.8-10.8)
[2021-01-16] MEDS: NovoLOG Insulin Flexpen SUBQ SCH ×4 (05:40→20:34)
[2021-01-16 05:48] LABS: ANION GAP 6 mmol/L (5-15); BLOOD UREA NITROGEN 11 mg/dL (7-18); CALCIUM 9.6 MG/DL (8.5-10.1); CARBON DIOXIDE 30 MMOL/L (21-32); CHLORIDE 105 MMOL/L (98-107); CREATININE 1.1 MG/DL (0.55-1.30); POTASSIUM 4.8 MMOL/L (3.5-5.1); SODIUM 141 MMOL/L (136-145)
--- NOTE | 2021-01-16 07:00 | NUR ---
NURSE HAND-OFF REPORT: Important Events on Shift: patient remains stable on bipap Patient Status: full code Diet: npo. pt on bipap Pending Orders: [] Pending Results/Labs:[] Pending MD notification:[] Latest Vital Signs: Temperature 98.0 , Pulse 83 , B/P 125 /70 , Respiratory Rate 21 , O2 SAT 100 , Bi-pap, O2 Flow Rate 15.0 . Vital Sign Comment: stable EKG Rhythm: Sinus Rhythm Rhythm change?: N MD Notified?: - MD Response: Latest Franco Fall Score: 45 Fall Risk: High Risk Safety Measures: Call light Within Reach, Bed Alarm Zone 1, Side Rails Side Rails x2, Bed position Low and Locked. Fall Precautions: Yellow Socks Yellow Gown Door Sign Patient Fall Education Report given to FLACO Espitia.
--- NOTE | 2021-01-16 07:30 | NUR ---
NURSE NOTES: Received pt from RN Anshul, pt is awake, pt has Bipap 15/5 FIO2 50%, Pt is on continues heart monitoring. pt has intact iv access LAC 20G SL and RAC 18G D5NS 100 is running well. no complain of pain at this moment. All needs attended, bed is locked and is in the lowest position, call light within easy reach. will continue to monitor.
[2021-01-16 07:57] VITALS: BP 121/74
[2021-01-16] MEDS: metFORMIN 500mg tab ORAL SCH ×2 (09:48→17:16)
--- NOTE | 2021-01-16 09:48 | NUR ---
RADIOLOGY DEPT., CHEST X-RAY DONE.-P.DYE
[2021-01-16] MEDS: dexAMETHasone 10mg/ml Inj IV SCH (09:49)
[2021-01-16] MEDS: Bactrim SS Tab ORAL SCH ×2 (09:51→17:16)
[2021-01-16] MEDS: Enoxaparin 40mg Inj SUBQ SCH (09:52)
--- NOTE | 2021-01-16 10:46 | Pulmonology Progress Note ---
Subjective ROS Limited/Unobtainable: Yes Allergies: Coded Allergies: No Known Allergies (Verified , 09/14/07) Subjective on BIPAP and isolation Objective Last 24 Hour Vital Signs Date Time Temp Pulse Resp B/P (MAP) Pulse Ox O2 Delivery O2 Flow Rate FiO2 01/16/21 08:00 Bi-pap Bi-pap 01/16/21 08:00 50 01/16/21 07:57 97.8 76 18 121/74 (90) 100 01/16/21 04:00 Bi-pap Bi-pap 01/16/21 04:00 98.0 83 21 125/70 (88) 100 01/16/21 04:00 50 01/16/21 03:59 82 01/16/21 03:11 81 19 100 50 01/16/21 00:00 50 01/16/21 00:00 98.5 90 26 101/53 (69) 100 01/16/21 00:00 Bi-pap Bi-pap 01/16/21 00:00 75 01/15/21 23:06 78 25 100 50 01/15/21 20:00 Bi-pap Bi-pap 01/15/21 20:00 88 01/15/21 20:00 98.3 90 22 112/67 (82) 100 01/15/21 19:03 88 28 100 50 01/15/21 17:34 50 01/15/21 17:31 50 01/15/21 16:30 30 01/15/21 16:29 Bi-pap 01/15/21 16:00 98.6 93 22 122/80 (94) 93 01/15/21 15:40 101 32 100 30 01/15/21 15:40 101 32 100 Bi-Pap 30 01/15/21 15:38 92 24 120/66 100 Bi-pap 40 01/15/21 14:32 98.9 95 29 125/63 97 Venturi Mask 15.0 95 01/15/21 13:42 98.9 102 26 119/66 100 Non-Rebreather 40 01/15/21 13:26 106 26 119/56 97 Bi-pap 40 01/15/21 12:34 112 32 100 40 01/15/21 12:33 110 32 122/60 100 Non-Rebreather 15.0 01/15/21 12:17 104 20 Non-Rebreather 15.0 100 01/15/21 12:17 100.2 01/15/21 12:00 107 40 Room Air 35 01/15/21 11:54 100.6 107 30 110/60 (77) 38 Room Air Intake and Output 01/15/21 01/16/21 19:00 07:00 Intake Total 50 ml 1105 ml Output Total 600 ml 650 ml Balance -550 ml 455 ml Intake IV Total 50 ml 1105 ml Output Urine Total 600 ml 650 ml Objective deferred due to possible COVID Microbiology Date/Time Source Procedure Growth Status 01/15/21 12:22 Nasopharynx SARS-CoV-2 Antigen (Rapid)(SEN) - Final Complete 01/15/21 12:22 Nasal Nares - Final Complete 01/15/21 12:22 Nasal Nares - Final Complete Laboratory Tests 01/15/21 11:45: White Blood Count 16.3H, Red Blood Count 4.38L, Hemoglobin 11.9L, Hematocrit 39.8L, Mean Corpuscular Volume 91, Mean Corpuscular Hemoglobin 27.2, Mean Corpuscular Hemoglobin Concent 29.9L, Red Cell Distribution Width 13.4, Platelet Count 262, Mean Platelet Volume 7.0, Neutrophils (%) (Auto) , Lymphocytes (%) (Auto) , Monocytes (%) (Auto) , Eosinophils (%) (Auto) , Basophils (%) (Auto) , Differential Total Cells Counted 100, Neutrophils % (Manual) 84H, Lymphocytes % (Manual) 9L, Monocytes % (Manual) 4, Eosinophils % (Manual) 0, Basophils % (Manual) 0, Band Neutrophils 3, Platelet Estimate Adequate, Platelet Morphology Normal, Red Blood Cell Morphology , Hypochromasia 1+, Urine Color Pale yellow, Urine Appearance Clear, Urine pH 6, Urine Specific Lovell 1.015, Urine Protein 2+H, Urine Glucose (UA) Negative, Urine Ketones 2+H, Urine Blood 5+H, Urine Ni trite Negative, Urine Bilirubin Negative, Urine Urobilinogen Normal, Urine Leukocyte Esterase 1+H, Urine RBC 15-20H, Urine WBC 2-4, Urine Squamous Epithelial Cells Occasional, Urine Bacteria Few, Sodium Level 139, Potassium Level 4.7, Chloride Level 101, Carbon Dioxide Level 29, Anion Gap 9, Blood Urea Nitrogen 11, Creatinine 1.2, Estimat Glomerular Filtration Rate > 60, Glucose Level 224H, Lactic Acid Level 2.30H, Calcium Level 10.0, Phosphorus Level 3.2, Magnesium Level 1.8, Total Bilirubin 0.4, Aspartate Amino Transf (AST/SGOT) 15, Alanine Aminotransferase (ALT/SGPT) 17, Alkaline Phosphatase 103, Total Creatine Kinase 20L, Creatine Kinase MB 0.7, Creatine Kinase MB Relative Index 3.5, Troponin I 0.023, Pro-B-Type Natriuretic Peptide 2090H, Total Protein 8.1, Albumin 2.4L, Globulin 5.7, Albumin/Globulin Ratio 0.4L 01/15/21 12:02: Arterial Blood pH 7.220*L, Arterial Blood Partial Pressure CO2 68.1*H, Arterial Blood Partial Pressure O2 201.5H, Arterial Blood HCO3 27.2H, Arterial Blood Oxygen Saturation 98.5, Arterial Blood Base Excess -1.6, Colt Test Positive 01/15/21 12:10: POC Whole Blood Glucose [Pending] 01/15/21 17:17: Arterial Blood pH 7.362, Arterial Blood Partial Pressure CO2 52.1H, Arterial Blood Partial Pressure O2 47.8*L, Arterial Blood HCO3 28.9H, Arterial Blood Oxygen Saturation 84.4*L, Arterial Blood Base Excess 2.7H, Colt Test N/a 01/16/21 03:30: White Blood Count 12.6H, Red Blood Count 3.84L, Hemoglobin 10.9L, Hematocrit 35.2L, Mean Corpuscular Volume 92, Mean Corpuscular Hemoglobin 28.4, Mean Corpuscular Hemoglobin Concent 31.0L, Red Cell Distribution Width 13.0, Platelet Count 260, Mean Platelet Volume 7.4, Neutrophils (%) (Auto) , Lymphocytes (%) (Auto) , Monocytes (%) (Auto) , Eosinophils (%) (Auto) , Basophils (%) (Auto) , Differential Total Cells Counted 100, Neutrophils % (Manual) 89H, Lymphocytes % (Manual) 7L, Monocytes % (Manual) 3, Eosinophils % (Manual) 1, Basophils % (Manual) 0, Band Neutrophils 0, Platelet Estimate Adequate, Platelet Morphology Normal, Hypochromasia 1+, Sodium Level 141, Potassium Level 4.8, Chloride Level 105, Carbon Dioxide Level 30, Anion Gap 6, Blood Urea Nitrogen 11, Creatinine 1.1, Estimat Glomerular Filtration Rate > 60, Glucose Level 184H, Lactic Acid Level 0.80, Calcium Level 9.6 Current Medications Medications (Trade) Dose Ordered Sig/Pedro Route PRN Reason Start Time Stop Time Status Last Admin Dose Admin Acetaminophen (Tylenol) 650 mg Q4H PRN ORAL Temp >100.5 01/15/21 17:00 02/14/21 16:59 Al Hydroxide/Mg Hydroxide (Mylanta) 30 ml Q4H PRN ORAL Abdominal cramps 01/15/21 17:00 02/14/21 16:59 Atorvastatin Calcium (Lipitor) 80 mg BEDTIME ORAL 01/15/21 21:00 04/15/21 20:59 Ceftriaxone Sodium 1 gm/ Dextrose 55 ml @ 110 mls/hr Q24H IVPB 01/15/21 20:00 01/22/21 18:59 01/15/21 20:31 Dexamethasone Sodium Phosphate (Decadron 10mg/ ml Inj) 6 mg DAILY IV 01/15/21 21:00 01/25/21 23:59 01/16/21 09:49 Dextrose (Dextrose 50%) 25 ml Q30M PRN IV Hypoglycemia 01/15/21 17:00 04/15/21 16:59 Dextrose (Dextrose 50%) 50 ml Q30M PRN IV Hypoglycemia 01/15/21 17:00 04/15/21 16:59 Dextrose/Sodium Chloride 1,000 ml @ 100 mls/hr Q10H IV 01/15/21 18:30 02/14/21 18:29 01/16/21 04:00 Donepezil HCl (Aricept) 5 mg BEDTIME ORAL 01/15/21 21:00 02/14/21 20:59 Enoxaparin Sodium (Lovenox) 40 mg DAILY SUBQ 01/16/21 09:00 04/16/21 08:59 01/16/21 09:52 Ferrous Sulfate (Feosol) 325 mg TWICE A DAY ORAL 01/15/21 18:00 04/15/21 17:59 01/16/21 09:49 Glipizide (GlipiZIDE XL) 5 mg BID ORAL 01/15/21 18:00 02/14/21 17:59 01/16/21 09:48 Insulin Aspart (NovoLOG) BEFORE MEALS AND HS SUBQ 01/15/21 21:00 04/15/21 20:59 01/16/21 05:40 Levofloxacin (Levaquin) 500 mg DAILY ORAL 01/16/21 09:00 01/23/21 08:59 01/16/21 09:48 Metformin HCl (Glucophage) 500 mg TWICE A DAY ORAL 01/15/21 18:00 02/14/21 17:59 01/16/21 09:48 Pantoprazole (Protonix) 40 mg DAILY ORAL 01/16/21 09:00 02/15/21 08:59 01/16/21 09:48 Primidone (Mysoline) 50 mg DAILY ORAL 01/16/21 09:00 02/15/21 08:59 Tamsulosin HCl (Flomax) 0.4 mg BEDTIME ORAL 01/15/21 21:00 02/14/21 20:59 Trimethoprim/ Sulfamethoxazole (Bactrim Single Strength) 1 tab TWICE A DAY ORAL 01/15/21 18:00 01/22/21 17:59 01/16/21 09:51 Assessment/Plan Assessment/Plan acute hypercapnic respiratory failure chronic respiratory failure hypoxemia COPD pulmonary infiltrates pneumonia diabetes hypertension PLAN Decadron ID to see oxygen as needed monitor oxygen needs DVT prophylaxis home meds nutrition as able monitor labs and imaging empiric antibiotics BIPAP close follow up impression, plan, and exam edited and reviewed in detail care discussed with Loki Mensah MD Jan 16, 2021 10:46
[2021-01-16] MEDS ORDERED: VICTOZA 2-0.6 MG/0.1 SUBQ (11:01)
[2021-01-16] MEDS ORDERED: GLIPIZIDE5 MG ORAL (11:01)
--- NOTE | 2021-01-16 11:29 | Consultation ---
DATE OF CONSULTATION: 01/16/2021 INFECTIOUS DISEASES CONSULTATION CONSULTING PHYSICIAN: Billie Aranda MD. REFERRING PHYSICIAN: Loki Beebe MD. REASON FOR CONSULTATION: Pneumonia and to rule out COVID-19 pneumonia. HISTORY OF PRESENTING ILLNESS: This is an 85-year-old gentleman with history of COPD, prediabetes, who comes in with fever, weakness along with shortness of breath. There was a concern for COVID-19 pneumonia and an Infectious Diseases consultation has been obtained for antibiotics. PAST MEDICAL HISTORY: 1. History of COPD. 2. Prediabetes. SOCIAL HISTORY: Unknown. FAMILY HISTORY: Unknown. REVIEW OF SYSTEMS: Unable to obtain currently. MEDICATIONS: As an inpatient, the patient is on Protonix, Levaquin, Lovenox, primidone, dexamethasone, atorvastatin, insulin, Flomax, benazepril, ceftriaxone, Bactrim, metformin, glipizide, ferrous sulfate, Mylanta and Tylenol. ALLERGIES: No known drug allergies. PHYSICAL EXAMINATION: VITAL SIGNS: Temperature of 97.8, T-max of 98.9, pulse of 75, respiratory rate of 18, blood pressure 121/74, O2 saturation of 100% on an FiO2 of 50%, he is on a BiPAP. Examination deferred due to possibility of COVID-19. LABORATORY AND DIAGNOSTIC DATA: White count of 12.6 today, white count 16.3 yesterday, hemoglobin 10.9, hematocrit 35.2, MCV 92, platelet count of 260, with neutrophils of 89%. Sodium 141, potassium 4.8, chloride 105, bicarb 30, BUN 11, creatinine 1.1, glucose 184, calcium 9.6. Total bilirubin 0.4. AST 15, ALT 17, alkaline phosphatase 103. CK of 20, CK-MB 0.7. Beta-natriuretic peptide 2090. Total protein 8.1, albumin 2.4. UA showing 2 to 4 white cells. COVID-19 antigen test is negative. Nasal swab was negative for influenza A and B. Chest x-ray showing bilateral infiltrates, left greater than the right. ASSESSMENT: This is an 85-year-old gentleman with history of COPD, prediabetes, who comes in with fever, generalized weakness, shortness of breath and is found to have. 1. Pneumonia, would like to rule out COVID-19 pneumonia as a possibility. He is tested negative for influenza. 2. COPD. 3. Prediabetes. 4. Respiratory failure. PLAN: 1. Continue ceftriaxone and Levaquin for now. 2. Continue dexamethasone day #2. 3. We will order COVID-19 test. 4. Continue isolation. 5. Continue Bactrim for PCP prophylaxis. I would like to thank Dr. Beebe for this consultation. Billie Aranda M.D. DR: VIRGILIO JOB#: [id number] CC: Loki Beebe MD.; Fax#: [phone]
[2021-01-16 11:51] VITALS: BP 123/64
--- NOTE | 2021-01-16 11:59 | History and Physical Report ---
DATE OF ADMISSION: 01/15/2021 CHIEF COMPLAINT: Pneumonia, respiratory failure. HISTORY OF PRESENT ILLNESS: The patient is an 85-year-old male. He has a history of severe COPD and is on chronic home oxygen therapy for over 10 years. 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 On evaluation there, he had bilateral infiltrates. His rapid COVID test though was negative. Because of the respiratory acidosis, he has been placed on BiPAP but is now admitted for further evaluation and care. PAST MEDICAL HISTORY: As above. PAST SURGICAL HISTORY: Includes GI surgery and hernia surgery. CURRENT MEDICATIONS: Reconciled and reviewed. ALLERGIES: None. FAMILY HISTORY: None. SOCIAL HISTORY: The patient has a prior heavy history of smoking, but quit. No alcohol. No drugs. REVIEW OF SYSTEMS: GENERAL: Positive fevers but no chills. HEENT: No headaches or visual changes. CARDIOPULMONARY: No chest pain. Positive shortness of breath. No cough. GASTROINTESTINAL: No nausea or vomiting. GENITOURINARY: No urgency or frequency. MUSCULOSKELETAL: No joint pain or swelling. NEUROLOGIC: No evidence of seizures. PHYSICAL EXAMINATION: VITAL SIGNS: Temperature 98, pulse 90, respirations 18, and blood pressure 101/53. GENERAL: The patient is well developed, in no apparent distress. Currently on BiPAP. HEENT: Head is normocephalic. Sclerae anicteric. NECK: Supple. HEART: Regular rate and rhythm. LUNGS: Clear anteriorly. ABDOMEN: Soft, nontender, and nondistended. EXTREMITIES: Without clubbing, cyanosis, or edema. LABORATORY AND DIAGNOSTIC DATA: ABG showed pH of 7.22, pCO2 68, pO2 of 201, bicarb 27, O2 saturation 98. White count 16, hemoglobin 11, platelets of 262. Sodium 141, potassium 4.8. Lactic acid was 2.3. ASSESSMENT: This is an 85-year-old male admitted with complaints of shortness of breath secondary to pneumonia: 1. Pneumonia, rule out COVID . 2. Hypoxemic and respiratory failure. 3. Respiratory acidosis. PLAN: 1. Broad-spectrum antibiotics, steroids. 2. Followup COVID PCR. 3. DVT and stress ulcer prophylaxis. 4. Respiratory treatments as needed. 5. Continue BiPAP per . 6. Plan of care was discussed with the patient's . Geovanni Castillo M.D. DR: Israel JOB#: [id number] CC:
--- NOTE | 2021-01-16 13:34 | NUR ---
NURSE NOTES: Dr Engel is aware covid PCR is negative, waiting to call back. will continue to monitor.
--- NOTE | 2021-01-16 13:40 | NUR ---
NURSE NOTES: Dr Engel called back and ordered to D/C covid isolation, noted and carried out. will continue to monitor.
--- NOTE | 2021-01-16 13:54 | Diagnostic Imaging Report ---
Indication: Shortness of breath Technique: One view of the chest Comparison: 01/15/2021 Findings: Again demonstrated is bilateral upper lobe bullous change, scarring, upward retraction of the torsten, more generalized hyperinflation. Bilateral interstitial disease and left upper lung infiltrates are unchanged. Impression: Unchanged, over one day, findings as above.
[2021-01-16 15:56] VITALS: BP 121/63
--- NOTE | 2021-01-16 16:14 | History and Physical Report ---
DATE OF ADMISSION: 01/15/2021 REASON FOR ADMISSION: Respiratory failure. HISTORY: This is an 85-year-old male who is well known to me. The patient presents with increasing shortness of breath, congestion, generalized weakness. The patient is noted to have significant acute on chronic respiratory failure. The patient has been at home, with outpatient therapy, but has failed, noted to have leukocytosis, anemia, and evidence of left shift. X-ray with significant infiltrates. The patient's case was discussed with the . The patient is admitted. The patient is placed on BiPAP. The patient is without any fevers or chills at this time. PAST MEDICAL HISTORY: Notable for long-standing history of COPD, chronic hypoxemia, history of diabetes, history of elevated PSA, hypertension, carotid stenosis, cough due to LAURA inhibitors, history of right groin hernia. MEDICATIONS: Reviewed. SOCIAL HISTORY: The patient is a past smoker. He is . Lives at home. Chronically on oxygen. REVIEW OF SYSTEMS: Unobtainable. Currently on BiPAP and in isolation. PHYSICAL EXAMINATION: GENERAL: An ill-appearing male. VITAL SIGNS: Reviewed. On arrival, heart rate 102, temperature 99, blood pressure 119/66, respiratory rate 26, sats more than 96%. LUNGS: Coarse breath sounds. CARDIAC: Mildly tachycardic. EXTREMITIES: No edema. LABORATORY DATA: Reviewed. White count 16, hemoglobin 11.9, platelets normal. Blood gases on arrival 7./68/201. Chemistries reviewed. Lactic acid 2.3. Troponin negative. Chest x-ray with bilateral infiltrates. IMPRESSION: Acute on chronic respiratory failure, hypoxemia, COPD, lactic acidemia, possible sepsis, leukocytosis, significant acidemia, history of diabetes, history of hypertension, advanced age, history of elevated PSA. RECOMMENDATIONS: Supportive care. Resume home medications, Decadron empirically, isolation. COVID antigen rapid negative. Await COVID PCR. Place the patient on isolation for now. ID evaluation. Monitor sugars. BiPAP as needed. Monitor acid-base exchange. We will follow clinically. Discussed with as to advance directive. Currently full code. Provide DVT prophylaxis. Loki Beebe M.D. DR: PANCHO JOB#: [id number] CC: MERCEDES
--- NOTE | 2021-01-16 19:05 | NUR ---
NURSE HAND-OFF REPORT: Important Events on Shift: Patient Status: Diet: Pending Orders: Pending Results/Labs: Pending MD notification: Latest Vital Signs: Temperature 97.9 , Pulse 76 , B/P 121 /63 , Respiratory Rate 18 , O2 SAT 95 , Bi-pap, O2 Flow Rate 15.0 . Vital Sign Comment: EKG Rhythm: Sinus Rhythm Rhythm change?: N MD Notified?: - MD Response: Latest Franco Fall Score: 45 Fall Risk: High Risk Safety Measures: Call light Within Reach, Bed Alarm Zone 1, Side Rails Side Rails x2, Bed position Low and Locked. Fall Precautions: Yellow Socks Yellow Gown Door Sign Patient Fall Education Report given to . pt is awake and stable,no stress noted. Endorsed plan of care, endorsed to monitor spo2.
--- NOTE | 2021-01-16 19:10 | NUR ---
NURSE NOTES: Received patient from FLACO Espitia. patient is awake in bed watching TV. sinus rhythm on the monitor. on Bipap 15/5 FiO2 50% saturation 100%. Left AC IV in place running D5NS @100ml/hr. bed to lowest position and locked. call light within easy reach. side rails up x2. will continue plan of care.
[2021-01-16 20:00] VITALS: BP 104/66
[2021-01-16] MEDS: Atorvastatin 80mg tab ORAL SCH (20:13)
[2021-01-16] MEDS: Donepezil 5mg Tab ORAL SCH (20:13)
[2021-01-16] MEDS: cefTRIAXone 1 GM in D5W 55 ML IVPB SCH (20:13)
[2021-01-16] MEDS: Tamsulosin 0.4mg cap ORAL SCH (20:13)
[2021-01-17] VITALS: BP 111/69
[2021-01-17] MEDS: D5NS 1,000 ML IV SCH ×3 (00:29→15:03)
--- NOTE | 2021-01-17 03:13 | NUR ---
NURSE NOTES: bed bath performed. no BM. vital signs stable.
[2021-01-17 04:00] VITALS: BP 116/82
[2021-01-17] MEDS: NovoLOG Insulin Flexpen SUBQ SCH ×4 (05:37→20:12)
--- NOTE | 2021-01-17 07:00 | NUR ---
NURSE HAND-OFF REPORT: Important Events on Shift: remains stable Patient Status: full code Diet: on bipap Pending Orders: [] Pending Results/Labs:[] Pending MD notification:[] Latest Vital Signs: Temperature 98.6 , Pulse 92 , B/P 116 /82 , Respiratory Rate 33 , O2 SAT 95 , Bi-pap, O2 Flow Rate 15.0 . Vital Sign Comment: stable EKG Rhythm: Sinus Tachycardia Rhythm change?: N MD Notified?: - MD Response: Latest Franco Fall Score: 45 Fall Risk: High Risk Safety Measures: Call light Within Reach, Bed Alarm Zone 1, Side Rails Side Rails x2, Bed position Low and Locked. Fall Precautions: Yellow Socks Yellow Gown Door Sign Patient Fall Education Report given to FLACO Espitia.
--- NOTE | 2021-01-17 07:20 | NUR ---
NURSE NOTES: Received pt from RN Anshul, pt is awake, pt has Bipap 15/5 FIO2 50%, Pt is on continues heart monitoring. pt has intact iv access LAC 20G D5NS 100 is running well. no complain of pain at this moment. All needs attended, bed is locked and is in the lowest position, call light within easy reach. will continue to monitor.
[2021-01-17 07:53] VITALS: BP 123/68
[2021-01-17] MEDS: Bactrim SS Tab ORAL SCH ×2 (08:37→17:08)
[2021-01-17] MEDS: metFORMIN 500mg tab ORAL SCH ×2 (08:37→17:08)
[2021-01-17] MEDS: dexAMETHasone 10mg/ml Inj IV SCH (08:38)
[2021-01-17] MEDS: Enoxaparin 40mg Inj SUBQ SCH (08:40)
--- NOTE | 2021-01-17 09:10 | Pulmonology Progress Note ---
Subjective ROS Limited/Unobtainable: Yes Allergies: Coded Allergies: No Known Allergies (Verified , 09/14/07) Subjective off BIPAP and isolation Objective Last 24 Hour Vital Signs Date Time Temp Pulse Resp B/P (MAP) Pulse Ox O2 Delivery O2 Flow Rate FiO2 01/17/21 08:50 3.0 01/17/21 07:57 50 01/17/21 07:56 Bi-pap Bi-pap 01/17/21 07:53 97.8 86 24 123/68 (86) 94 01/17/21 05:13 92 33 95 35 01/17/21 04:00 98.6 112 23 116/82 (93) 96 01/17/21 04:00 114 01/17/21 03:45 50 01/17/21 03:45 Bi-pap Bi-pap 01/17/21 03:32 90 22 100 35 01/17/21 01:47 84 25 100 35 01/17/21 00:00 Bi-pap Bi-pap 01/17/21 00:00 93 01/17/21 00:00 50 01/17/21 00:00 98.0 99 20 111/69 (83) 97 01/16/21 23:39 93 25 100 35 01/16/21 21:28 80 24 100 35 01/16/21 20:03 50 01/16/21 20:00 98.6 78 20 104/66 (79) 100 01/16/21 20:00 Bi-pap Bi-pap 01/16/21 20:00 83 01/16/21 19:26 76 26 100 40 01/16/21 16:01 50 01/16/21 15:59 Bi-pap Bi-pap 01/16/21 15:56 97.9 76 18 121/63 (82) 95 01/16/21 15:18 73 01/16/21 15:00 78 18 100 50 01/16/21 12:00 Bi-pap Bi-pap 01/16/21 12:00 50 01/16/21 11:52 81 01/16/21 11:51 97.6 77 20 123/64 (83) 98 01/16/21 10:35 80 18 100 50 Intake and Output 01/16/21 01/17/21 19:00 07:00 Intake Total 1200 ml 1310 ml Output Total 1300 ml 1100 ml Balance -100 ml 210 ml Intake IV Total 1200 ml 1310 ml Output Urine Total 1300 ml 1100 ml Objective WDWN NAD reduced breath sounds bilaterally without rhonchi or wheeze [id number] without MRG NABS nontender no CCE nonfocal Microbiology Date/Time Source Procedure Growth Status 01/15/21 18:05 Nasopharynx Coronavirus COVID-19 PCR (SEN) - Final Complete 01/15/21 12:22 Nasopharynx SARS-CoV-2 Antigen (Rapid)(SEN) - Final Complete 01/15/21 12:22 Nasal Nares - Final Complete 01/15/21 12:22 Nasal Nares - Final Complete 01/15/21 11:50 Blood Blood Culture - Preliminary NO GROWTH AFTER 24 HOURS Resulted 01/15/21 11:45 Blood Blood Culture - Preliminary NO GROWTH AFTER 24 HOURS Resulted Current Medications Medications (Trade) Dose Ordered Sig/Pedro Route PRN Reason Start Time Stop Time Status Last Admin Dose Admin Acetaminophen (Tylenol) 650 mg Q4H PRN ORAL Temp >100.5 01/15/21 17:00 02/14/21 16:59 Al Hydroxide/Mg Hydroxide (Mylanta) 30 ml Q4H PRN ORAL Abdominal cramps 01/15/21 17:00 02/14/21 16:59 Atorvastatin Calcium (Lipitor) 80 mg BEDTIME ORAL 01/15/21 21:00 04/15/21 20:59 01/16/21 20:13 Ceftriaxone Sodium 1 gm/ Dextrose 55 ml @ 110 mls/hr Q24H IVPB 01/15/21 20:00 01/22/21 18:59 01/16/21 20:13 Dexamethasone Sodium Phosphate (Decadron 10mg/ ml Inj) 6 mg DAILY IV 01/15/21 21:00 01/25/21 23:59 01/17/21 08:38 Dextrose (Dextrose 50%) 25 ml Q30M PRN IV Hypoglycemia 01/15/21 17:00 04/15/21 16:59 Dextrose (Dextrose 50%) 50 ml Q30M PRN IV Hypoglycemia 01/15/21 17:00 04/15/21 16:59 Dextrose/Sodium Chloride 1,000 ml @ 100 mls/hr Q10H IV 01/15/21 18:30 02/14/21 18:29 01/17/21 00:29 Donepezil HCl (Aricept) 5 mg BEDTIME ORAL 01/15/21 21:00 02/14/21 20:59 01/16/21 20:13 Enoxaparin Sodium (Lovenox) 40 mg DAILY SUBQ 01/16/21 09:00 04/16/21 08:59 01/17/21 08:40 Ferrous Sulfate (Feosol) 325 mg TWICE A DAY ORAL 01/15/21 18:00 04/15/21 17:59 01/17/21 08:37 Glipizide (GlipiZIDE XL) 5 mg BID ORAL 01/15/21 18:00 02/14/21 17:59 01/17/21 08:37 Insulin Aspart (NovoLOG) BEFORE MEALS AND HS SUBQ 01/15/21 21:00 04/15/21 20:59 01/17/21 05:37 Levofloxacin (Levaquin) 500 mg DAILY ORAL 01/16/21 09:00 01/23/21 08:59 01/17/21 08:38 Metformin HCl (Glucophage) 500 mg TWICE A DAY ORAL 01/15/21 18:00 02/14/21 17:59 01/17/21 08:37 Pantoprazole (Protonix) 40 mg DAILY ORAL 01/16/21 09:00 02/15/21 08:59 01/17/21 08:37 Primidone (Mysoline) 50 mg DAILY ORAL 01/16/21 09:00 02/15/21 08:59 01/17/21 08:37 Tamsulosin HCl (Flomax) 0.4 mg BEDTIME ORAL 01/15/21 21:00 02/14/21 20:59 01/16/21 20:13 Trimethoprim/ Sulfamethoxazole (Bactrim Single Strength) 1 tab TWICE A DAY ORAL 01/15/21 18:00 01/22/21 17:59 01/17/21 08:37 Assessment/Plan Assessment/Plan acute hypercapnic respiratory failure chronic respiratory failure hypoxemia COPD pulmonary infiltrates pneumonia diabetes hypertension PLAN Decadron ? dc in am ID follow up oxygen as needed taper DVT prophylaxis home meds nutrition as able monitor labs and imaging empiric antibiotics BIPAP PRN close follow up transfer to tele impression, plan, and exam edited and reviewed in detail care discussed with Loki Mensah MD Jan 17, 2021 09:10
--- NOTE | 2021-01-17 09:27 | NUR ---
NURSE NOTES: with NC 3lit SPO2 82%, RT changed it to 5lit, now SPO2 96%. WILL CONTINUE CLOSE MONITORING.
--- NOTE | 2021-01-17 10:24 | Infectious Diseases Prog Note ---
Assessment/Plan Assessment/Plan A: 1. Pneumonia, COVID19 PCR & rapid tests: negative 2. COPD. 3. Prediabetes. 4. Respiratory failure with hypercapnia 5. Anemia PLAN: 1. Continue ceftriaxone and Levaquin for now. 2. Consider stopping dexamethasone 3. Continue Bactrim for PCP prophylaxis. Subjective ROS Limited/Unobtainable: Yes Constitutional: Reports: no symptoms Respiratory: Reports: shortness of breath, dry cough Gastrointestinal/Abdominal: Reports: no symptoms Allergies: Coded Allergies: No Known Allergies (Verified , 09/14/07) Objective Last 24 Hour Vital Signs Date Time Temp Pulse Resp B/P (MAP) Pulse Ox O2 Delivery O2 Flow Rate FiO2 01/17/21 09:26 5.0 01/17/21 08:50 3.0 01/17/21 08:00 94 01/17/21 07:57 50 01/17/21 07:56 Bi-pap Bi-pap 01/17/21 07:53 97.8 86 24 123/68 (86) 94 01/17/21 05:13 92 33 95 35 01/17/21 04:00 98.6 112 23 116/82 (93) 96 01/17/21 04:00 114 01/17/21 03:45 50 01/17/21 03:45 Bi-pap Bi-pap 01/17/21 03:32 90 22 100 35 01/17/21 01:47 84 25 100 35 01/17/21 00:00 Bi-pap Bi-pap 01/17/21 00:00 93 01/17/21 00:00 50 01/17/21 00:00 98.0 99 20 111/69 (83) 97 01/16/21 23:39 93 25 100 35 01/16/21 21:28 80 24 100 35 01/16/21 20:03 50 01/16/21 20:00 98.6 78 20 104/66 (79) 100 01/16/21 20:00 Bi-pap Bi-pap 01/16/21 20:00 83 01/16/21 19:26 76 26 100 40 01/16/21 16:01 50 01/16/21 15:59 Bi-pap Bi-pap 01/16/21 15:56 97.9 76 18 121/63 (82) 95 01/16/21 15:18 73 01/16/21 15:00 78 18 100 50 01/16/21 12:00 Bi-pap Bi-pap 01/16/21 12:00 50 01/16/21 11:52 81 01/16/21 11:51 97.6 77 20 123/64 (83) 98 01/16/21 10:35 80 18 100 50 Height (Feet): 6 Height (Inches): 0.00 Weight (Pounds): 165 HEENT: mucous membranes moist, other - has no teeth Respiratory/Chest: lungs clear, other - O2 by nasal cannula Cardiovascular: normal rate Abdomen: soft, non tender Extremities: no edema Neurologic/Psychiatric: alert, responsive Microbiology Date/Time Source Procedure Growth Status 01/15/21 18:05 Nasopharynx Coronavirus COVID-19 PCR (SEN) - Final Complete 01/15/21 12:22 Nasopharynx SARS-CoV-2 Antigen (Rapid)(SEN) - Final Complete 01/15/21 12:22 Nasal Nares - Final Complete 01/15/21 12:22 Nasal Nares - Final Complete 01/15/21 11:50 Blood Blood Culture - Preliminary NO GROWTH AFTER 24 HOURS Resulted 01/15/21 11:45 Blood Blood Culture - Preliminary NO GROWTH AFTER 24 HOURS Resulted Current Medications Medications (Trade) Dose Ordered Sig/Pedro Route PRN Reason Start Time Stop Time Status Last Admin Dose Admin Acetaminophen (Tylenol) 650 mg Q4H PRN ORAL Temp >100.5 01/15/21 17:00 02/14/21 16:59 Al Hydroxide/Mg Hydroxide (Mylanta) 30 ml Q4H PRN ORAL Abdominal cramps 01/15/21 17:00 02/14/21 16:59 Atorvastatin Calcium (Lipitor) 80 mg BEDTIME ORAL 01/15/21 21:00 04/15/21 20:59 01/16/21 20:13 Ceftriaxone Sodium 1 gm/ Dextrose 55 ml @ 110 mls/hr Q24H IVPB 01/15/21 20:00 01/22/21 18:59 01/16/21 20:13 Dexamethasone Sodium Phosphate (Decadron 10mg/ ml Inj) 6 mg DAILY IV 01/15/21 21:00 01/25/21 23:59 01/17/21 08:38 Dextrose (Dextrose 50%) 25 ml Q30M PRN IV Hypoglycemia 01/15/21 17:00 04/15/21 16:59 Dextrose (Dextrose 50%) 50 ml Q30M PRN IV Hypoglycemia 01/15/21 17:00 04/15/21 16:59 Dextrose/Sodium Chloride 1,000 ml @ 100 mls/hr Q10H IV 01/15/21 18:30 02/14/21 18:29 01/17/21 00:29 Donepezil HCl (Aricept) 5 mg BEDTIME ORAL 01/15/21 21:00 02/14/21 20:59 01/16/21 20:13 Enoxaparin Sodium (Lovenox) 40 mg DAILY SUBQ 01/16/21 09:00 04/16/21 08:59 01/17/21 08:40 Ferrous Sulfate (Feosol) 325 mg TWICE A DAY ORAL 01/15/21 18:00 04/15/21 17:59 01/17/21 08:37 Glipizide (GlipiZIDE XL) 5 mg BID ORAL 01/15/21 18:00 02/14/21 17:59 01/17/21 08:37 Insulin Aspart (NovoLOG) BEFORE MEALS AND HS SUBQ 01/15/21 21:00 04/15/21 20:59 01/17/21 05:37 Levofloxacin (Levaquin) 500 mg DAILY ORAL 01/16/21 09:00 01/23/21 08:59 01/17/21 08:38 Metformin HCl (Glucophage) 500 mg TWICE A DAY ORAL 01/15/21 18:00 02/14/21 17:59 01/17/21 08:37 Pantoprazole (Protonix) 40 mg DAILY ORAL 01/16/21 09:00 02/15/21 08:59 01/17/21 08:37 Primidone (Mysoline) 50 mg DAILY ORAL 01/16/21 09:00 02/15/21 08:59 01/17/21 08:37 Tamsulosin HCl (Flomax) 0.4 mg BEDTIME ORAL 01/15/21 21:00 02/14/21 20:59 01/16/21 20:13 Trimethoprim/ Sulfamethoxazole (Bactrim Single Strength) 1 tab TWICE A DAY ORAL 01/15/21 18:00 01/22/21 17:59 01/17/21 08:37 Jose Alejandro Heredia MD 4, 2021 10:24
[2021-01-17 11:53] VITALS: BP 119/70
--- NOTE | 2021-01-17 15:27 | General Progress Note ---
Subjective ROS Limited/Unobtainable: No Constitutional: Reports: malaise, weakness HEENT: Reports: no symptoms Cardiovascular: Reports: no symptoms Respiratory: Reports: cough, shortness of breath Gastrointestinal/Abdominal: Reports: no symptoms Genitourinary: Reports: no symptoms Neurologic/Psychiatric: Reports: no symptoms Endocrine: Reports: no symptoms Hematologic/Lymphatic: Reports: no symptoms Allergies: Coded Allergies: No Known Allergies (Verified , 09/14/07) All Systems: reviewed and negative except above Subjective no events. remains on bipap. per staff sob when off bipap. no fevers. on iv abx. Objective Last 24 Hour Vital Signs Date Time Temp Pulse Resp B/P (MAP) Pulse Ox O2 Delivery O2 Flow Rate FiO2 01/17/21 12:00 Bi-pap Bi-pap 01/17/21 11:53 98.4 81 20 119/70 (86) 94 01/17/21 11:40 91 01/17/21 09:26 5.0 01/17/21 08:50 3.0 01/17/21 08:00 94 01/17/21 07:57 50 01/17/21 07:56 Bi-pap Bi-pap 01/17/21 07:53 97.8 86 24 123/68 (86) 94 01/17/21 07:11 94 20 98 01/17/21 05:13 92 33 95 35 01/17/21 04:00 98.6 112 23 116/82 (93) 96 01/17/21 04:00 114 01/17/21 03:45 50 01/17/21 03:45 Bi-pap Bi-pap 01/17/21 03:32 90 22 100 35 01/17/21 01:47 84 25 100 35 01/17/21 00:00 Bi-pap Bi-pap 01/17/21 00:00 93 01/17/21 00:00 50 01/17/21 00:00 98.0 99 20 111/69 (83) 97 01/16/21 23:39 93 25 100 35 01/16/21 21:28 80 24 100 35 01/16/21 20:03 50 01/16/21 20:00 98.6 78 20 104/66 (79) 100 01/16/21 20:00 Bi-pap Bi-pap 01/16/21 20:00 83 01/16/21 19:26 76 26 100 40 01/16/21 16:01 50 01/16/21 15:59 Bi-pap Bi-pap 01/16/21 15:56 97.9 76 18 121/63 (82) 95 Intake and Output 01/16/21 01/17/21 19:00 07:00 Intake Total 1200 ml 1310 ml Output Total 1300 ml 1100 ml Balance -100 ml 210 ml IV Total 1200 ml 1310 ml Output Urine Total 1300 ml 1100 ml Height (Feet): 6 Height (Inches): 0.00 Weight (Pounds): 165 General Appearance: WD/WN, alert, confused EENT: PERRL/EOMI, normal ENT inspection Neck: non-tender, normal alignment Cardiovascular: normal peripheral pulses, normal rate, regular rhythm Respiratory/Chest: chest wall non-tender, lungs clear, normal breath sounds, no respiratory distress, no accessory muscle use Abdomen: normal bowel sounds, non tender, soft, no organomegaly Edema: no edema noted Arm (L), no edema noted Arm (R) 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
[2021-01-17 16:00] VITALS: BP 129/72
--- NOTE | 2021-01-17 19:12 | NUR ---
NURSE HAND-OFF REPORT: Important Events on Shift: Patient Status: Diet: Pending Orders: Pending Results/Labs: Pending MD notification: Latest Vital Signs: Temperature 98.5 , Pulse 91 , B/P 129 /72 , Respiratory Rate 20 , O2 SAT 94 , Bi-pap, O2 Flow Rate 5.0 . Vital Sign Comment: EKG Rhythm: Sinus Rhythm Rhythm change?: N MD Notified?: - MD Response: Latest Franco Fall Score: 45 Fall Risk: High Risk Safety Measures: Call light Within Reach, Bed Alarm Zone 1, Side Rails Side Rails x2, Bed position Low and Locked. Fall Precautions: Yellow Socks Yellow Gown Door Sign Patient Fall Education Report given to . Pt is awake and stable, spo2 100% with 5lit O2 now. no stress noted. endorsed plan of care, endorsed to monitor spo2.
--- NOTE | 2021-01-17 19:30 | NUR ---
NURSE NOTES: Received report & pt from FLACO Espitia. Pt in bed, a&ox3, on O2 via NC @ 5LPM. No s/s of acute distress & no c/o pain at this time. Murillo intact & draining urine to gravity. IV site intact with IVF running as ordered. Bed in lowest position, call light within reach. Will continue to monitor.
[2021-01-17 20:00] VITALS: BP 125/73
[2021-01-17] MEDS: Atorvastatin 80mg tab ORAL SCH (20:06)
[2021-01-17] MEDS: Donepezil 5mg Tab ORAL SCH (20:06)
[2021-01-17] MEDS: cefTRIAXone 1 GM in D5W 55 ML IVPB SCH (20:06)
[2021-01-17] MEDS: Tamsulosin 0.4mg cap ORAL SCH (20:06)
--- NOTE | 2021-01-17 22:00 | NUR ---
NURSE NOTES: Pt asleep. Bipap on. In no acute distress. Saturating 99%.
[2021-01-18] VITALS: BP 114/65
--- NOTE | 2021-01-18 | NUR ---
NURSE NOTES: Pt asleep. Turned & repositioned. VS taken.
[2021-01-18] MEDS: D5NS 1,000 ML IV SCH ×4 (01:01→23:48)
[2021-01-18 04:00] VITALS: BP 114/65
--- NOTE | 2021-01-18 04:00 | NUR ---
NURSE NOTES: Pt still on bipap saturating 100%. Turned & repositioned.
[2021-01-18] MEDS: NovoLOG Insulin Flexpen SUBQ SCH ×4 (05:40→21:30)
--- NOTE | 2021-01-18 06:48 | General Progress Note ---
Subjective ROS Limited/Unobtainable: No Constitutional: Reports: weakness HEENT: Reports: no symptoms Cardiovascular: Reports: no symptoms Respiratory: Reports: cough, shortness of breath Gastrointestinal/Abdominal: Reports: no symptoms Genitourinary: Reports: no symptoms Neurologic/Psychiatric: Reports: no symptoms Endocrine: Reports: no symptoms Hematologic/Lymphatic: Reports: no symptoms Allergies: Coded Allergies: No Known Allergies (Verified , 09/14/07) All Systems: reviewed and negative except above Subjective no events. back on bipap. per RN desaturating late last night. placed back on bipap. currently w/o complaints. cxr noted. Objective Last 24 Hour Vital Signs Date Time Temp Pulse Resp B/P (MAP) Pulse Ox O2 Delivery O2 Flow Rate FiO2 01/18/21 04:00 5.0 01/18/21 04:00 98.0 70 20 114/65 (81) 100 01/18/21 04:00 74 01/18/21 04:00 Bi-pap Bi-pap 01/18/21 03:16 70 21 100 35 01/18/21 01:21 69 22 100 35 01/18/21 00:20 68 01/18/21 00:00 97.6 70 18 114/65 (81) 100 01/18/21 00:00 Bi-pap Bi-pap 01/17/21 23:26 75 21 100 35 01/17/21 20:38 79 24 96 35 01/17/21 20:00 Nasal Cannula 5.0 Bi-pap 01/17/21 20:00 83 01/17/21 20:00 97.0 89 20 125/73 (90) 94 01/17/21 20:00 5.0 01/17/21 19:55 86 20 98 Nasal Cannula 3.0 32 01/17/21 16:00 Bi-pap Bi-pap 01/17/21 16:00 98.5 91 20 129/72 (91) 94 01/17/21 16:00 5.0 01/17/21 15:23 89 01/17/21 12:00 Bi-pap Bi-pap 01/17/21 11:53 98.4 81 20 119/70 (86) 94 01/17/21 11:40 91 01/17/21 09:26 5.0 01/17/21 08:50 3.0 01/17/21 08:00 94 01/17/21 07:57 50 01/17/21 07:56 Bi-pap Bi-pap 01/17/21 07:53 97.8 86 24 123/68 (86) 94 01/17/21 07:11 94 20 98 Intake and Output 01/17/21 01/18/21 19:00 07:00 Intake Total 1680 ml 1230 ml Output Total 1000 ml 1400 ml Balance 680 ml -170 ml Intake Oral 480 ml 120 ml IV Total 1200 ml 1110 ml Output Urine Total 1000 ml 1400 ml Height (Feet): 6 Height (Inches): 0.00 Weight (Pounds): 165 Objective General Appearance: WD/WN, alert, confused EENT: PERRL/EOMI, normal ENT inspection Neck: non-tender, normal alignment Cardiovascular: normal peripheral pulses, normal rate, regular rhythm Respiratory/Chest: chest wall non-tender, lungs clear, normal breath sounds, no respiratory distress, no accessory muscle use Abdomen: normal bowel sounds, non tender, soft, no organomegaly Edema: no edema noted Arm (L), no edema noted Arm (R) 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
--- NOTE | 2021-01-18 06:50 | NUR ---
NURSE HAND-OFF REPORT: Important Events on Shift:BIPAP on at night d/t saturation 87-88%. 100% O2 saturation on bipap. Patient Status: stable Diet: CCHO (m) mech soft Pending Orders: CXR 01/18 Pending Results/Labs:ABG Pending MD notification: Latest Vital Signs: Temperature 98.0 , Pulse 74 , B/P 114 /65 , Respiratory Rate 20 , O2 SAT 100 , Bi-pap, O2 Flow Rate 5.0 . Vital Sign Comment: EKG Rhythm: Sinus Arrhythmia Rhythm change?: N MD Notified?: - N Response: Latest Franco Fall Score: 45 Fall Risk: High Risk Safety Measures: Call light Within Reach, Bed Alarm Zone 1, Side Rails Side Rails x2, Bed position Low and Locked. Fall Precautions: Yellow Socks Yellow Gown Door Sign Patient Fall Education Report given to Nupur Uribe RN.
--- NOTE | 2021-01-18 07:10 | NUR ---
RESPIRATORY NOTE: Pt received on BIPAP 15/ backup rate 14, 35% FiO2. Pt Spo2 100%. Respirations in 20s. Pt is awake and alert. ABG to be drawn. BIPAP plugged into red outlet. Alarms are on and audible. Will continue to monitor and follow plan of care.
--- NOTE | 2021-01-18 07:30 | NUR ---
NURSE NOTES: Received pt from FLACO Bennett, pt is sleeping, pt has Bipap 15/5 FIO2 50%, Pt is on continues heart monitoring. pt has intact iv access LAC 20G D5NS 100 is running well. pt has Murillo cath in place is working well. no complain of pain at this moment. All needs attended, bed is locked and is in the lowest position, call light within easy reach. will continue to monitor.
[2021-01-18 08:00] VITALS: BP 132/79
--- NOTE | 2021-01-18 08:15 | NUR ---
RD ASSESSMENT & RECOMMENDATIONS SEE CARE ACTIVITY FOR COMPLETE ASSESSMENT DAILY ESTIMATED NEEDS: Needs based on Pulmonary, DM 65.6kg 25-35 kcals/kg 4151-1524 total kcals 1-1.5 g protein/kg 66-98 g total protein 25-30 mL/kg 4027-0232 total fluid mLs NUTRITION DIAGNOSIS: Altered nutrition related lab values r/t diabetes as evidenced by elev BG (184-224), elev POC(176-319). CURRENT DIET: CCHO MED/ ms ground PO DIET RECOMMENDATIONS: Liberalized REGULAR diet w/ poor-fair po intake ADDITIONAL RECOMMENDATIONS: 1) Add Glucerna 1 tetra TID 2) Obtain a calibrated bed scale wt as able 3) monitor BG for hypoglycemia w/ poor - fair po intake 4) monitor pulmonary status, ability to eat
[2021-01-18] MEDS: dexAMETHasone 10mg/ml Inj IV SCH (09:18)
[2021-01-18] MEDS: metFORMIN 500mg tab ORAL SCH ×2 (09:18→17:18)
[2021-01-18] MEDS: Bactrim SS Tab ORAL SCH (09:18)
[2021-01-18] MEDS: Enoxaparin 40mg Inj SUBQ SCH (09:19)
--- NOTE | 2021-01-18 09:41 | NUR ---
RESPIRATORY NOTE: Took pt off BIPAP and placed on 3L nasal cannula. Pt spo2 97%. RN Afsoon bedside. Will continue to closely monitor.
--- NOTE | 2021-01-18 10:17 | NUR ---
NURSE NOTES: Dr Beebe is aware about ABG result and is aware pt is on NC 4Lit now, NNO. Will continue to close monitoring.
--- NOTE | 2021-01-18 10:43 | Infectious Diseases Prog Note ---
Assessment/Plan Assessment/Plan antibiotics : ceftriaxone, levoquin, bactrim A 1. pneumonia improving covid 19 negative x 2 2. leucocytosis improving 3. COPD 4. pre diabetes P 1. continue levoquin 6 more days 2. d/c ceftriaxone, bactrim 3. d/c dexamethasone 4. will follow up cultures Subjective ROS Limited/Unobtainable: Yes Allergies: Coded Allergies: No Known Allergies (Verified , 09/14/07) Objective Last 24 Hour Vital Signs Date Time Temp Pulse Resp B/P (MAP) Pulse Ox O2 Delivery O2 Flow Rate FiO2 01/18/21 09:33 97 Nasal Cannula 3.0 32 01/18/21 09:26 4.0 01/18/21 08:00 Nasal Cannula 4.0 Nasal Cannula 4.0 01/18/21 08:00 97.5 74 14 132/79 (96) 100 01/18/21 08:00 50 01/18/21 07:41 71 01/18/21 07:15 72 23 99 35 01/18/21 04:00 5.0 01/18/21 04:00 98.0 70 20 114/65 (81) 100 01/18/21 04:00 74 01/18/21 04:00 Bi-pap Bi-pap 01/18/21 03:16 70 21 100 35 01/18/21 01:21 69 22 100 35 01/18/21 00:20 68 01/18/21 00:00 97.6 70 18 114/65 (81) 100 01/18/21 00:00 Bi-pap Bi-pap 01/17/21 23:26 75 21 100 35 01/17/21 20:38 79 24 96 35 01/17/21 20:00 Nasal Cannula 5.0 Bi-pap 01/17/21 20:00 83 01/17/21 20:00 97.0 89 20 125/73 (90) 94 01/17/21 20:00 5.0 01/17/21 19:55 86 20 98 Nasal Cannula 3.0 32 01/17/21 16:00 Bi-pap Bi-pap 01/17/21 16:00 98.5 91 20 129/72 (91) 94 01/17/21 16:00 5.0 01/17/21 15:23 89 01/17/21 12:00 Bi-pap Bi-pap 01/17/21 11:53 98.4 81 20 119/70 (86) 94 01/17/21 11:40 91 Height (Feet): 6 Height (Inches): 0.00 Weight (Pounds): 165 Respiratory/Chest: lungs clear Cardiovascular: normal rate, regular rhythm, no gallop/murmur Abdomen: soft, non tender Extremities: no edema Microbiology Date/Time Source Procedure Growth Status 01/15/21 18:05 Nasopharynx Coronavirus COVID-19 PCR (SEN) - Final Complete 01/15/21 12:22 Nasopharynx SARS-CoV-2 Antigen (Rapid)(SEN) - Final Complete 01/15/21 12:22 Nasal Nares - Final Complete 01/15/21 12:22 Nasal Nares - Final Complete 01/15/21 11:50 Blood Blood Culture - Preliminary NO GROWTH AFTER 48 HOURS Resulted 01/15/21 11:45 Blood Blood Culture - Preliminary NO GROWTH AFTER 48 HOURS Resulted Laboratory Tests Test 01/18/21 09:17 Arterial Blood pH 7.429 (7.350-7.450) Arterial Blood Partial Pressure CO2 52.1 mmHg (35.0-45.0) H Arterial Blood Partial Pressure O2 78.5 mmHg (75.0-100.0) Arterial Blood HCO3 33.7 mmol/L (22.0-26.0) H Arterial Blood Oxygen Saturation 95.0 % (95-100) Arterial Blood Base Excess 8.1 (-2-2) H Colt Test Positive Current Medications Medications (Trade) Dose Ordered Sig/Pedro Route PRN Reason Start Time Stop Time Status Last Admin Dose Admin Acetaminophen (Tylenol) 650 mg Q4H PRN ORAL Temp >100.5 01/15/21 17:00 02/14/21 16:59 Al Hydroxide/Mg Hydroxide (Mylanta) 30 ml Q4H PRN ORAL Abdominal cramps 01/15/21 17:00 02/14/21 16:59 Atorvastatin Calcium (Lipitor) 80 mg BEDTIME ORAL 01/15/21 21:00 04/15/21 20:59 01/17/21 20:06 Ceftriaxone Sodium 1 gm/ Dextrose 55 ml @ 110 mls/hr Q24H IVPB 01/15/21 20:00 01/22/21 18:59 01/17/21 20:06 Dexamethasone Sodium Phosphate (Decadron 10mg/ ml Inj) 6 mg DAILY IV 01/15/21 21:00 01/25/21 23:59 01/18/21 09:18 Dextrose (Dextrose 50%) 25 ml Q30M PRN IV Hypoglycemia 01/15/21 17:00 04/15/21 16:59 Dextrose (Dextrose 50%) 50 ml Q30M PRN IV Hypoglycemia 01/15/21 17:00 04/15/21 16:59 Dextrose/Sodium Chloride 1,000 ml @ 100 mls/hr Q10H IV 01/15/21 18:30 02/14/21 18:29 01/18/21 01:01 Donepezil HCl (Aricept) 5 mg BEDTIME ORAL 01/15/21 21:00 02/14/21 20:59 01/17/21 20:06 Enoxaparin Sodium (Lovenox) 40 mg DAILY SUBQ 01/16/21 09:00 04/16/21 08:59 01/18/21 09:19 Ferrous Sulfate (Feosol) 325 mg TWICE A DAY ORAL 01/15/21 18:00 04/15/21 17:59 01/18/21 09:17 Glipizide (GlipiZIDE XL) 5 mg BID ORAL 01/15/21 18:00 02/14/21 17:59 01/18/21 09:17 Insulin Aspart (NovoLOG) BEFORE MEALS AND HS SUBQ 01/15/21 21:00 04/15/21 20:59 01/18/21 05:40 Levofloxacin (Levaquin) 500 mg DAILY ORAL 01/16/21 09:00 01/23/21 08:59 01/18/21 09:18 Metformin HCl (Glucophage) 500 mg TWICE A DAY ORAL 01/15/21 18:00 02/14/21 17:59 01/18/21 09:18 Pantoprazole (Protonix) 40 mg DAILY ORAL 01/16/21 09:00 02/15/21 08:59 01/18/21 09:18 Primidone (Mysoline) 50 mg DAILY ORAL 01/16/21 09:00 02/15/21 08:59 01/18/21 09:17 Tamsulosin HCl (Flomax) 0.4 mg BEDTIME ORAL 01/15/21 21:00 02/14/21 20:59 01/17/21 20:06 Trimethoprim/ Sulfamethoxazole (Bactrim Single Strength) 1 tab TWICE A DAY ORAL 01/15/21 18:00 01/22/21 17:59 01/18/21 09:18 Billie Aranda MD Jan 18, 2021 10:43
--- NOTE | 2021-01-18 11:38 | Diagnostic Imaging Report ---
Indication: Shortness of breath Technique: One view of the chest Comparison: 01/16/2021 Findings: Hyperinflation, bilateral upper lobe bullous change, scarring, volume loss, bilateral mid and lower lung interstitial opacities are stable. The heart size is normal. Impression: Unchanged, over 2 days, findings as above.
[2021-01-18 11:50] VITALS: BP 144/96
--- NOTE | 2021-01-18 14:32 | NUR ---
NURSE NOTES: Dr Beebe is aware about constipation, orders noted and carried out.
[2021-01-18] MEDS ORDERED: Milk of Magnesia 30ml Ud ORAL PRN (14:45)
--- NOTE | 2021-01-18 15:32 | Cardiology Report ---
APPROVED REPORT EKG Measurement Heart [id number] MN [id number] <Conclusion> Sinus tachycardia Possible Anterior infarct, age undetermined ST & T wave abnormality, consider lateral ischemia Abnormal ECG
--- NOTE | 2021-01-18 15:50 | Pulmonology Progress Note ---
Subjective ROS Limited/Unobtainable: Yes Constitutional: Reports: no symptoms Gastrointestinal/Abdominal: Reports: no symptoms Allergies: Coded Allergies: No Known Allergies (Verified , 09/14/07) All Systems: reviewed and negative except above Subjective off BIPAP earlier but back on when seen reviewed acid base Objective Last 24 Hour Vital Signs Date Time Temp Pulse Resp B/P (MAP) Pulse Ox O2 Delivery O2 Flow Rate FiO2 01/18/21 12:00 Nasal Cannula 4.0 Nasal Cannula 4.0 01/18/21 12:00 4.0 01/18/21 11:50 97.7 83 16 144/96 (112) 96 01/18/21 11:48 86 01/18/21 09:33 97 Nasal Cannula 3.0 32 01/18/21 09:26 4.0 01/18/21 08:00 Nasal Cannula 4.0 Nasal Cannula 4.0 01/18/21 08:00 97.5 74 14 132/79 (96) 100 01/18/21 08:00 50 01/18/21 07:41 71 01/18/21 07:15 72 23 99 35 01/18/21 04:00 5.0 01/18/21 04:00 98.0 70 20 114/65 (81) 100 01/18/21 04:00 74 01/18/21 04:00 Bi-pap Bi-pap 01/18/21 03:16 70 21 100 35 01/18/21 01:21 69 22 100 35 01/18/21 00:20 68 01/18/21 00:00 97.6 70 18 114/65 (81) 100 01/18/21 00:00 Bi-pap Bi-pap 01/17/21 23:26 75 21 100 35 01/17/21 20:38 79 24 96 35 01/17/21 20:00 Nasal Cannula 5.0 Bi-pap 01/17/21 20:00 83 01/17/21 20:00 97.0 89 20 125/73 (90) 94 01/17/21 20:00 5.0 01/17/21 19:55 86 20 98 Nasal Cannula 3.0 32 01/17/21 16:00 Bi-pap Bi-pap 01/17/21 16:00 98.5 91 20 129/72 (91) 94 01/17/21 16:00 5.0 Intake and Output 01/17/21 01/18/21 19:00 07:00 Intake Total 1680 ml 1430 ml Output Total 1000 ml 1400 ml Balance 680 ml 30 ml Intake Oral 480 ml 120 ml IV Total 1200 ml 1310 ml Output Urine Total 1000 ml 1400 ml Objective WDWN NAD reduced breath sounds bilaterally without rhonchi or wheeze [id number] without MRG NABS nontender no CCE nonfocal on BIPAP when seen Microbiology Date/Time Source Procedure Growth Status 01/15/21 18:05 Nasopharynx Coronavirus COVID-19 PCR (SEN) - Final Complete Laboratory Tests 01/18/21 09:17: Arterial Blood pH 7.429, Arterial Blood Partial Pressure CO2 52.1H, Arterial Blood Partial Pressure O2 78.5, Arterial Blood HCO3 33.7H, Arterial Blood Oxygen Saturation 95.0, Arterial Blood Base Excess 8.1H, Colt Test Positive Current Medications Medications (Trade) Dose Ordered Sig/Pedro Route PRN Reason Start Time Stop Time Status Last Admin Dose Admin Acetaminophen (Tylenol) 650 mg Q4H PRN ORAL Temp >100.5 01/15/21 17:00 02/14/21 16:59 Al Hydroxide/Mg Hydroxide (Mylanta) 30 ml Q4H PRN ORAL Abdominal cramps 01/15/21 17:00 02/14/21 16:59 Atorvastatin Calcium (Lipitor) 80 mg BEDTIME ORAL 01/15/21 21:00 04/15/21 20:59 01/17/21 20:06 Dextrose (Dextrose 50%) 25 ml Q30M PRN IV Hypoglycemia 01/15/21 17:00 04/15/21 16:59 Dextrose (Dextrose 50%) 50 ml Q30M PRN IV Hypoglycemia 01/15/21 17:00 04/15/21 16:59 Dextrose/Sodium Chloride 1,000 ml @ 100 mls/hr Q10H IV 01/15/21 18:30 02/14/21 18:29 01/18/21 11:59 Docusate Sodium (Colace) 100 mg TWICE A DAY ORAL 01/18/21 18:00 02/17/21 17:59 Donepezil HCl (Aricept) 5 mg BEDTIME ORAL 01/15/21 21:00 02/14/21 20:59 01/17/21 20:06 Enoxaparin Sodium (Lovenox) 40 mg DAILY SUBQ 01/16/21 09:00 04/16/21 08:59 01/18/21 09:19 Ferrous Sulfate (Feosol) 325 mg TWICE A DAY ORAL 01/15/21 18:00 04/15/21 17:59 01/18/21 09:17 Glipizide (GlipiZIDE XL) 5 mg BID ORAL 01/15/21 18:00 02/14/21 17:59 01/18/21 09:17 Insulin Aspart (NovoLOG) BEFORE MEALS AND HS SUBQ 01/15/21 21:00 04/15/21 20:59 01/18/21 11:58 Levofloxacin (Levaquin) 500 mg DAILY ORAL 01/16/21 09:00 01/23/21 08:59 01/18/21 09:18 Magnesium Hydroxide (Mom) 30 ml DAILYPRN PRN ORAL Constipation 01/18/21 14:45 02/17/21 14:44 Metformin HCl (Glucophage) 500 mg TWICE A DAY ORAL 01/15/21 18:00 02/14/21 17:59 01/18/21 09:18 Pantoprazole (Protonix) 40 mg DAILY ORAL 01/16/21 09:00 02/15/21 08:59 01/18/21 09:18 Primidone (Mysoline) 50 mg DAILY ORAL 01/16/21 09:00 02/15/21 08:59 01/18/21 09:17 Tamsulosin HCl (Flomax) 0.4 mg BEDTIME ORAL 01/15/21 21:00 02/14/21 20:59 01/17/21 20:06 Assessment/Plan Assessment/Plan acute hypercapnic respiratory failure chronic respiratory failure hypoxemia COPD pulmonary infiltrates pneumonia diabetes hypertension PLAN Decadron will dc ID follow up oxygen as needed taper DVT prophylaxis home meds nutrition as able monitor labs and imaging empiric antibiotics BIPAP PRN and monitor acid base close follow up transfer to tele monitor nutrition impression, plan, and exam edited and reviewed in detail care discussed with Loki Mensah MD Jan 18, 2021 15:50
[2021-01-18 16:00] VITALS: BP 131/71
[2021-01-18] MEDS: Docusate 100mg cap ORAL SCH (17:17)
--- NOTE | 2021-01-18 19:20 | NUR ---
Report received from day shift RN and assumed care of patient.
[2021-01-18 20:00] VITALS: BP 132/73
--- NOTE | 2021-01-18 20:40 | NUR ---
Assessment complete, see charting for details. Pt in NAD, VSS, and repositioned. Medications administered as ordered, see eMAR for details. Will continue to monitor the patient.
[2021-01-18] MEDS: Atorvastatin 80mg tab ORAL SCH (21:30)
[2021-01-18] MEDS: Tamsulosin 0.4mg cap ORAL SCH (21:30)
[2021-01-18] MEDS: Donepezil 5mg Tab ORAL SCH (21:30)
[2021-01-19] VITALS: BP 132/66
--- NOTE | 2021-01-19 00:28 | NUR ---
Midnight assessment completed, see charting for details. Pt in NAD, VSS, repositioned and will continue to monitor.
[2021-01-19 04:00] VITALS: BP_SYST 126; BP_SYST 148; BP_DIAS 64; BP_DIAS 84
--- NOTE | 2021-01-19 04:08 | NUR ---
0400 assessment completed. Pt in NAD, VSS. Will continue to monitor.
--- NOTE | 2021-01-19 06:23 | NUR ---
Pt linen changed and repositioned. Catheter care performed on patient. Patient provided additional blankets for comfort. Pt in NAD. Will continue to monitor.
[2021-01-19] MEDS: NovoLOG Insulin Flexpen SUBQ SCH ×4 (06:32→20:26)
--- NOTE | 2021-01-19 07:00 | NUR ---
NURSE NOTES: Received report from FLACO Pena. PAtient is AOx3 in bed, asleep at this time. No pain or discomfort noted at this time. Patient on 3L NC satting at 96%, breathing is even and unlabored with no signs of respiratory distress. Bed in lowest position, locked with side rails x2 up. Call light within reach.
--- NOTE | 2021-01-19 07:15 | NUR ---
Report given to FLACO Toribio who assumed care of patient.
[2021-01-19 08:00] VITALS: BP 141/69
--- NOTE | 2021-01-19 08:23 | General Progress Note ---
Subjective ROS Limited/Unobtainable: No Constitutional: Reports: malaise, weakness HEENT: Reports: no symptoms Cardiovascular: Reports: no symptoms Respiratory: Reports: cough, shortness of breath Gastrointestinal/Abdominal: Reports: no symptoms Genitourinary: Reports: no symptoms Neurologic/Psychiatric: Reports: no symptoms Endocrine: Reports: no symptoms Hematologic/Lymphatic: Reports: no symptoms Allergies: Coded Allergies: No Known Allergies (Verified , 09/14/07) All Systems: reviewed and negative except above Subjective better today. back on bipap. denies chest pain or sob. no fevers or chills. CXR unchanghed. on abx Objective Last 24 Hour Vital Signs Date Time Temp Pulse Resp B/P (MAP) Pulse Ox O2 Delivery O2 Flow Rate FiO2 01/19/21 07:22 100 Nasal Cannula 2.0 28 01/19/21 04:00 62 01/19/21 04:00 Nasal Cannula 4.0 Nasal Cannula 2.0 01/19/21 04:00 97.9 62 18 126/64 (84) 100 62 01/19/21 00:00 71 01/19/21 00:00 Nasal Cannula 4.0 Nasal Cannula 4.0 01/19/21 00:00 96.6 72 24 132/66 (88) 100 01/18/21 20:16 98 Nasal Cannula 3.0 32 01/18/21 20:00 78 01/18/21 20:00 Nasal Cannula 4.0 Nasal Cannula 4.0 01/18/21 20:00 96.4 77 18 132/73 (92) 97 01/18/21 16:00 4.0 01/18/21 16:00 Nasal Cannula 4.0 Nasal Cannula 4.0 01/18/21 16:00 98.2 82 19 131/71 (91) 99 01/18/21 15:45 102 01/18/21 12:00 Nasal Cannula 4.0 Nasal Cannula 4.0 01/18/21 12:00 4.0 01/18/21 11:50 97.7 83 16 144/96 (112) 96 01/18/21 11:48 86 01/18/21 09:33 97 Nasal Cannula 3.0 32 01/18/21 09:26 4.0 Intake and Output 01/18/21 01/19/21 19:00 07:00 Intake Total 1460 ml 400 ml Output Total 1100 ml 1700 ml Balance 360 ml -1300 ml Intake Oral 260 ml 100 ml IV Total 1200 ml 300 ml Output Urine Total 1100 ml 1700 ml Laboratory Tests 01/18/21 09:17: Arterial Blood pH 7.429, Arterial Blood Partial Pressure CO2 52.1H, Arterial Blood Partial Pressure O2 78.5, Arterial Blood HCO3 33.7H, Arterial Blood Oxygen Saturation 95.0, Arterial Blood Base Excess 8.1H, Colt Test Positive 01/19/21 06:16: POC Whole Blood Glucose [Pending] Height (Feet): 6 Height (Inches): 0.00 Weight (Pounds): 165 Objective General Appearance: WD/WN, alert, confused EENT: PERRL/EOMI, normal ENT inspection Neck: non-tender, normal alignment Cardiovascular: normal peripheral pulses, normal rate, regular rhythm Respiratory/Chest: chest wall non-tender, lungs clear, normal breath sounds, no respiratory distress, no accessory muscle use Abdomen: normal bowel sounds, non tender, soft, no organomegaly Edema: no edema noted Arm (L), no edema noted Arm (R) 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
[2021-01-19] MEDS: Docusate 100mg cap ORAL SCH ×2 (08:24→18:06)
[2021-01-19] MEDS: metFORMIN 500mg tab ORAL SCH ×2 (08:24→18:06)
[2021-01-19] MEDS: Enoxaparin 40mg Inj SUBQ SCH (08:27)
[2021-01-19] MEDS ORDERED: Tubing IV Secondary IV ONE (10:05)
[2021-01-19] MEDS: D5NS 1,000 ML IV SCH ×2 (11:30→21:36)
[2021-01-19 12:00] VITALS: BP 133/73
--- NOTE | 2021-01-19 12:18 | Pulmonology Progress Note ---
Subjective ROS Limited/Unobtainable: No Constitutional: Reports: no symptoms Gastrointestinal/Abdominal: Reports: no symptoms Allergies: Coded Allergies: No Known Allergies (Verified , 09/14/07) All Systems: reviewed and negative except above Objective Last 24 Hour Vital Signs Date Time Temp Pulse Resp B/P (MAP) Pulse Ox O2 Delivery O2 Flow Rate FiO2 01/19/21 08:00 Nasal Cannula 4.0 Nasal Cannula 2.0 01/19/21 08:00 98.2 86 19 141/69 (93) 96 86 01/19/21 08:00 83 01/19/21 07:22 100 Nasal Cannula 2.0 28 01/19/21 04:00 62 01/19/21 04:00 Nasal Cannula 4.0 Nasal Cannula 2.0 01/19/21 04:00 97.9 62 18 126/64 (84) 100 62 01/19/21 00:00 71 01/19/21 00:00 Nasal Cannula 4.0 Nasal Cannula 4.0 01/19/21 00:00 96.6 72 24 132/66 (88) 100 01/18/21 20:16 98 Nasal Cannula 3.0 32 01/18/21 20:00 78 01/18/21 20:00 Nasal Cannula 4.0 Nasal Cannula 4.0 01/18/21 20:00 96.4 77 18 132/73 (92) 97 01/18/21 16:00 4.0 01/18/21 16:00 Nasal Cannula 4.0 Nasal Cannula 4.0 01/18/21 16:00 98.2 82 19 131/71 (91) 99 01/18/21 15:45 102 Intake and Output 01/18/21 01/19/21 19:00 07:00 Intake Total 1460 ml 400 ml Output Total 1100 ml 1700 ml Balance 360 ml -1300 ml Intake Oral 260 ml 100 ml IV Total 1200 ml 300 ml Output Urine Total 1100 ml 1700 ml Laboratory Tests 01/19/21 06:16: POC Whole Blood Glucose [Pending] Current Medications Medications (Trade) Dose Ordered Sig/Pedro Route PRN Reason Start Time Stop Time Status Last Admin Dose Admin Acetaminophen (Tylenol) 650 mg Q4H PRN ORAL Temp >100.5 01/15/21 17:00 02/14/21 16:59 Al Hydroxide/Mg Hydroxide (Mylanta) 30 ml Q4H PRN ORAL Abdominal cramps 01/15/21 17:00 02/14/21 16:59 Atorvastatin Calcium (Lipitor) 80 mg BEDTIME ORAL 01/15/21 21:00 04/15/21 20:59 01/18/21 21:30 Dextrose (Dextrose 50%) 25 ml Q30M PRN IV Hypoglycemia 01/15/21 17:00 04/15/21 16:59 Dextrose (Dextrose 50%) 50 ml Q30M PRN IV Hypoglycemia 01/15/21 17:00 04/15/21 16:59 Dextrose/Sodium Chloride 1,000 ml @ 100 mls/hr Q10H IV 01/15/21 18:30 02/14/21 18:29 01/19/21 11:30 Docusate Sodium (Colace) 100 mg TWICE A DAY ORAL 01/18/21 18:00 02/17/21 17:59 01/19/21 08:24 Donepezil HCl (Aricept) 5 mg BEDTIME ORAL 01/15/21 21:00 02/14/21 20:59 01/18/21 21:30 Enoxaparin Sodium (Lovenox) 40 mg DAILY SUBQ 01/16/21 09:00 04/16/21 08:59 01/19/21 08:27 Ferrous Sulfate (Feosol) 325 mg TWICE A DAY ORAL 01/15/21 18:00 04/15/21 17:59 01/19/21 08:24 Glipizide (GlipiZIDE XL) 5 mg BID ORAL 01/15/21 18:00 02/14/21 17:59 01/19/21 08:24 Insulin Aspart (NovoLOG) BEFORE MEALS AND HS SUBQ 01/15/21 21:00 04/15/21 20:59 01/19/21 11:33 Levofloxacin (Levaquin) 500 mg DAILY ORAL 01/16/21 09:00 01/23/21 08:59 01/19/21 08:24 Magnesium Hydroxide (Mom) 30 ml DAILYPRN PRN ORAL Constipation 01/18/21 14:45 02/17/21 14:44 01/18/21 16:27 Metformin HCl (Glucophage) 500 mg TWICE A DAY ORAL 01/15/21 18:00 02/14/21 17:59 01/19/21 08:24 Pantoprazole (Protonix) 40 mg DAILY ORAL 01/16/21 09:00 02/15/21 08:59 01/19/21 08:24 Primidone (Mysoline) 50 mg DAILY ORAL 01/16/21 09:00 02/15/21 08:59 01/19/21 08:24 Tamsulosin HCl (Flomax) 0.4 mg BEDTIME ORAL 01/15/21 21:00 02/14/21 20:59 01/18/21 21:30 Assessment/Plan Assessment/Plan Pulmonary Progress Note Subjective ROS Limited/Unobtainable: Yes Constitutional: Reports: no symptoms Gastrointestinal/Abdominal: Reports: no symptoms Allergies: Coded Allergies: No Known Allergies (Verified , 09/14/07) All Systems: reviewed and negative except above Subjective On NC O2, BIPAP PRN Stable ON reviewed acid base Objective Vital Signs noted Objective WDWN NAD reduced breath sounds bilaterally without rhonchi or wheeze [id number] without MRG NABS nontender no CCE nonfocal on BIPAP when seen Microbiology noted Laboratory Tests noted 01/18/21 09:17: Arterial Blood pH 7.429, Arterial Blood Partial Pressure CO2 52.1H, Arterial Blood Partial Pressure O2 78.5, Arterial Blood HCO3 33.7H, Arterial Blood Oxygen Saturation 95.0, Arterial Blood Base Excess 8.1H, Colt Test Positive Medications noted Assessment/Plan Assessment/Plan acute hypercapnic respiratory failure chronic respiratory failure hypoxemia COPD pulmonary infiltrates pneumonia diabetes hypertension PLAN ID follow up oxygen/Bipap as needed taper DVT prophylaxis home meds nutrition as able monitor labs and imaging empiric antibiotics ABG PRN close follow up monitor nutrition impression, plan, and exam edited and reviewed in detail care discussed with Jake Gonzalez MD Jan 19, 2021 12:18
--- NOTE | 2021-01-19 12:43 | Infectious Diseases Prog Note ---
Assessment/Plan Assessment/Plan A: 1. Pneumonia, COVID19 PCR & rapid tests: negative 2. COPD. 3. Prediabetes. 4. Respiratory failure with hypercapnia 5. Anemia PLAN: 1. Continue Levaquin X 5 days Subjective ROS Limited/Unobtainable: No Constitutional: Denies: fever Respiratory: Reports: no symptoms Gastrointestinal/Abdominal: Reports: no symptoms Genitourinary: Reports: no symptoms Allergies: Coded Allergies: No Known Allergies (Verified , 09/14/07) Objective Last 24 Hour Vital Signs Date Time Temp Pulse Resp B/P (MAP) Pulse Ox O2 Delivery O2 Flow Rate FiO2 01/19/21 08:00 Nasal Cannula 4.0 Nasal Cannula 2.0 01/19/21 08:00 98.2 86 19 141/69 (93) 96 86 01/19/21 08:00 83 01/19/21 07:22 100 Nasal Cannula 2.0 28 01/19/21 04:00 62 01/19/21 04:00 Nasal Cannula 4.0 Nasal Cannula 2.0 01/19/21 04:00 97.9 62 18 126/64 (84) 100 62 01/19/21 00:00 71 01/19/21 00:00 Nasal Cannula 4.0 Nasal Cannula 4.0 01/19/21 00:00 96.6 72 24 132/66 (88) 100 01/18/21 20:16 98 Nasal Cannula 3.0 32 01/18/21 20:00 78 01/18/21 20:00 Nasal Cannula 4.0 Nasal Cannula 4.0 01/18/21 20:00 96.4 77 18 132/73 (92) 97 01/18/21 16:00 4.0 01/18/21 16:00 Nasal Cannula 4.0 Nasal Cannula 4.0 01/18/21 16:00 98.2 82 19 131/71 (91) 99 01/18/21 15:45 102 Height (Feet): 6 Height (Inches): 0.00 Weight (Pounds): 165 General Appearance: no acute distress HEENT: mucous membranes moist Respiratory/Chest: lungs clear, other - O2 by nasal cannula Cardiovascular: normal rate Abdomen: soft, non tender Extremities: no edema Neurologic/Psychiatric: alert, responsive Laboratory Tests Test 01/19/21 06:16 POC Whole Blood Glucose Pending Current Medications Medications (Trade) Dose Ordered Sig/Pedro Route PRN Reason Start Time Stop Time Status Last Admin Dose Admin Acetaminophen (Tylenol) 650 mg Q4H PRN ORAL Temp >100.5 01/15/21 17:00 02/14/21 16:59 Al Hydroxide/Mg Hydroxide (Mylanta) 30 ml Q4H PRN ORAL Abdominal cramps 01/15/21 17:00 02/14/21 16:59 Atorvastatin Calcium (Lipitor) 80 mg BEDTIME ORAL 01/15/21 21:00 04/15/21 20:59 01/18/21 21:30 Dextrose (Dextrose 50%) 25 ml Q30M PRN IV Hypoglycemia 01/15/21 17:00 04/15/21 16:59 Dextrose (Dextrose 50%) 50 ml Q30M PRN IV Hypoglycemia 01/15/21 17:00 04/15/21 16:59 Dextrose/Sodium Chloride 1,000 ml @ 100 mls/hr Q10H IV 01/15/21 18:30 02/14/21 18:29 01/19/21 11:30 Docusate Sodium (Colace) 100 mg TWICE A DAY ORAL 01/18/21 18:00 02/17/21 17:59 01/19/21 08:24 Donepezil HCl (Aricept) 5 mg BEDTIME ORAL 01/15/21 21:00 02/14/21 20:59 01/18/21 21:30 Enoxaparin Sodium (Lovenox) 40 mg DAILY SUBQ 01/16/21 09:00 04/16/21 08:59 01/19/21 08:27 Ferrous Sulfate (Feosol) 325 mg TWICE A DAY ORAL 01/15/21 18:00 04/15/21 17:59 01/19/21 08:24 Glipizide (GlipiZIDE XL) 5 mg BID ORAL 01/15/21 18:00 02/14/21 17:59 01/19/21 08:24 Insulin Aspart (NovoLOG) BEFORE MEALS AND HS SUBQ 01/15/21 21:00 04/15/21 20:59 01/19/21 11:33 Levofloxacin (Levaquin) 500 mg DAILY ORAL 01/16/21 09:00 01/23/21 08:59 01/19/21 08:24 Magnesium Hydroxide (Mom) 30 ml DAILYPRN PRN ORAL Constipation 01/18/21 14:45 02/17/21 14:44 01/18/21 16:27 Metformin HCl (Glucophage) 500 mg TWICE A DAY ORAL 01/15/21 18:00 02/14/21 17:59 01/19/21 08:24 Pantoprazole (Protonix) 40 mg DAILY ORAL 01/16/21 09:00 02/15/21 08:59 01/19/21 08:24 Primidone (Mysoline) 50 mg DAILY ORAL 01/16/21 09:00 02/15/21 08:59 01/19/21 08:24 Tamsulosin HCl (Flomax) 0.4 mg BEDTIME ORAL 01/15/21 21:00 02/14/21 20:59 01/18/21 21:30 Jose Alejandro Heredia MD Jan 19, 2021 12:42
[2021-01-19 16:00] VITALS: BP 144/86
--- NOTE | 2021-01-19 19:20 | NUR ---
NURSE HAND-OFF REPORT: Important Events on Shift:NA Patient Status: Stable Diet: CCHO Pending Orders: NA Pending Results/Labs:NA Pending MD notification:NA Latest Vital Signs: Temperature 98.0 , Pulse 76 , B/P 144 /86 , Respiratory Rate 20 , O2 SAT 100 , Bi-pap, O2 Flow Rate 2.0 . Vital Sign Comment: Stable EKG Rhythm: Sinus Rhythm Rhythm change?: N MD Notified?: - MD Response: Latest Franco Fall Score: 60 Fall Risk: High Risk Safety Measures: Call light Within Reach, Bed Alarm Zone 1, Side Rails Side Rails x2, Bed position Low and Locked. Fall Precautions: Yellow Socks Yellow Gown Door Sign Patient Fall Education Report given to FLACO Grant.
--- NOTE | 2021-01-19 19:44 | NUR ---
NURSE NOTES: Received report from Rebeka. AAO x 2-3 on NC 3l with 99% O2sat. IV sites intact and running IVF. Murillo in place and draining well. Denies pain or discomfort. No labored breathing. Bed locked, lowest position, alarm on ,side rails up, call light within reach. Will continue to monitor.
[2021-01-19 20:00] VITALS: BP 144/72
[2021-01-19] MEDS: Tamsulosin 0.4mg cap ORAL SCH (20:11)
[2021-01-19] MEDS: Donepezil 5mg Tab ORAL SCH (20:11)
[2021-01-19] MEDS: Atorvastatin 80mg tab ORAL SCH (20:12)
[2021-01-20] VITALS: BP 132/82
--- NOTE | 2021-01-20 00:23 | NUR ---
NURSE NOTES: Pt sleeping in bed, no acute distress noted, O2 sat 98%, Vitals stable
[2021-01-20 04:00] VITALS: BP 125/73
--- NOTE | 2021-01-20 04:47 | NUR ---
NURSE NOTES: Bed bath given, BM x 1, provided incontinent care, tolerating NC 2l, Vitals stable.
[2021-01-20] MEDS: NovoLOG Insulin Flexpen SUBQ SCH ×4 (06:02→20:51)
--- NOTE | 2021-01-20 06:51 | NUR ---
NURSE HAND-OFF REPORT: Important Events on Shift:none Patient Status: stable Diet: ccho m Pending Orders: [] Pending Results/Labs:[] Pending MD notification:[] Latest Vital Signs: Temperature 97.2 , Pulse 86 , B/P 125 /73 , Respiratory Rate 20 , O2 SAT 98 , Bi-pap, O2 Flow Rate 2.0 . Vital Sign Comment: [] EKG Rhythm: Sinus Rhythm Rhythm change?: N MD Notified?: - MD Response: Latest Franco Fall Score: 60 Fall Risk: High Risk Safety Measures: Call light Within Reach, Bed Alarm Zone 1, Side Rails Side Rails x2, Bed position Low and Locked. Fall Precautions: Yellow Socks Yellow Gown Door Sign Patient Fall Education Addendum: 01/20/21 at 0704 by MARYCARMEN GUERRA RN RN Report given to Mila
[2021-01-20] MEDS: Docusate 100mg cap ORAL SCH ×2 (07:58→17:17)
[2021-01-20] MEDS: metFORMIN 500mg tab ORAL SCH ×2 (07:58→17:17)
[2021-01-20 08:00] VITALS: BP 141/77
[2021-01-20] MEDS: Enoxaparin 40mg Inj SUBQ SCH (08:00)
[2021-01-20] MEDS: D5NS 1,000 ML IV SCH ×2 (08:01→15:53)
[2021-01-20 08:02] LABS: BASOPHILS % (AUTO) 0.2 % (0.0-2.0); EOSINOPHILS % (AUTO) 2.4 % (0.0-3.0); HEMATOCRIT 35.9 % (42.0-52.0); HEMOGLOBIN 10.7 G/DL (14.2-18.0); MEAN CORPUSCULAR VOLUME 92 FL (80-99); NEUTROPHILS % (AUTO) 84.3 % (45.0-75.0); PLATELET COUNT 258 K/UL (150-450); RED BLOOD COUNT 3.89 M/UL (4.70-6.10); WHITE BLOOD COUNT 12.5 K/UL (4.8-10.8)
--- NOTE | 2021-01-20 09:44 | NUR ---
NURSE NOTES: Received report. Pt is awake and alert AOx2, pt is on NC 3l with 97% O2sat with no IV sites intact and running IVF. Murillo in place and draining well. Denies pain or discomfort. No labored breathing. Bed locked, lowest position, alarm on ,side rails up, call light within reach. Will continue to monitor.
--- NOTE | 2021-01-20 10:10 | Infectious Diseases Prog Note ---
Assessment/Plan Assessment/Plan antibiotics : levoquin A 1. pneumonia improving covid 19 negative x 2 2. leucocytosis improving 3. COPD 4. pre diabetes P 1. continue levoquin 4 more days 2. will follow up cultures Subjective ROS Limited/Unobtainable: Yes Allergies: Coded Allergies: No Known Allergies (Verified , 09/14/07) Objective Last 24 Hour Vital Signs Date Time Temp Pulse Resp B/P (MAP) Pulse Ox O2 Delivery O2 Flow Rate FiO2 01/20/21 08:00 Nasal Cannula 2.0 Nasal Cannula 2.0 01/20/21 08:00 74 01/20/21 08:00 97.1 75 24 141/77 (98) 96 86 01/20/21 07:19 97 Nasal Cannula 2.0 28 01/20/21 04:00 Nasal Cannula 2.0 Nasal Cannula 2.0 01/20/21 04:00 73 01/20/21 04:00 97.2 86 20 125/73 (90) 98 86 01/20/21 00:00 98.2 77 24 132/82 (99) 98 77 01/20/21 00:00 Nasal Cannula 2.0 Nasal Cannula 2.0 01/20/21 00:00 84 01/19/21 20:00 76 01/19/21 20:00 Nasal Cannula 4.0 Nasal Cannula 2.0 01/19/21 20:00 97.7 77 20 144/72 (96) 97 77 01/19/21 19:22 100 Nasal Cannula 2.0 28 01/19/21 16:00 98.0 76 20 144/86 (105) 97 76 01/19/21 16:00 83 01/19/21 16:00 Nasal Cannula 4.0 Nasal Cannula 2.0 01/19/21 12:00 Nasal Cannula 4.0 Nasal Cannula 2.0 01/19/21 12:00 98.4 19 133/73 (93) 97 01/19/21 12:00 83 Height (Feet): 6 Height (Inches): 0.00 Weight (Pounds): 165 Respiratory/Chest: lungs clear Cardiovascular: normal rate, regular rhythm, no gallop/murmur Abdomen: soft, non tender Extremities: no edema Laboratory Tests Test 01/19/21 20:22 01/20/21 05:53 01/20/21 07:35 POC Whole Blood Glucose 147 MG/DL (74-106) H 182 MG/DL (74-106) H White Blood Count 12.5 K/UL (4.8-10.8) H Red Blood Count 3.89 M/UL (4.70-6.10) L Hemoglobin 10.7 G/DL (14.2-18.0) L Hematocrit 35.9 % (42.0-52.0) L Mean Corpuscular Volume 92 FL (80-99) Mean Corpuscular Hemoglobin 27.6 PG (27.0-31.0) Mean Corpuscular Hemoglobin Concent 29.9 G/DL (32.0-36.0) L Red Cell Distribution Width 13.0 % (11.6-14.8) Platelet Count 258 K/UL (150-450) Mean Platelet Volume 6.1 FL (6.5-10.1) L Neutrophils (%) (Auto) 84.3 % (45.0-75.0) H Lymphocytes (%) (Auto) 9.0 % (20.0-45.0) L Monocytes (%) (Auto) 4.0 % (1.0-10.0) Eosinophils (%) (Auto) 2.4 % (0.0-3.0) Basophils (%) (Auto) 0.2 % (0.0-2.0) Current Medications Medications (Trade) Dose Ordered Sig/Pedro Route PRN Reason Start Time Stop Time Status Last Admin Dose Admin Acetaminophen (Tylenol) 650 mg Q4H PRN ORAL Temp >100.5 01/15/21 17:00 02/14/21 16:59 Al Hydroxide/Mg Hydroxide (Mylanta) 30 ml Q4H PRN ORAL Abdominal cramps 01/15/21 17:00 02/14/21 16:59 Atorvastatin Calcium (Lipitor) 80 mg BEDTIME ORAL 01/15/21 21:00 04/15/21 20:59 01/19/21 20:12 Dextrose (Dextrose 50%) 25 ml Q30M PRN IV Hypoglycemia 01/15/21 17:00 04/15/21 16:59 Dextrose (Dextrose 50%) 50 ml Q30M PRN IV Hypoglycemia 01/15/21 17:00 04/15/21 16:59 Dextrose/Sodium Chloride 1,000 ml @ 100 mls/hr Q10H IV 01/15/21 18:30 02/14/21 18:29 01/20/21 08:01 Docusate Sodium (Colace) 100 mg TWICE A DAY ORAL 01/18/21 18:00 02/17/21 17:59 01/20/21 07:58 Donepezil HCl (Aricept) 5 mg BEDTIME ORAL 01/15/21 21:00 02/14/21 20:59 01/19/21 20:11 Enoxaparin Sodium (Lovenox) 40 mg DAILY SUBQ 01/16/21 09:00 04/16/21 08:59 01/20/21 08:00 Ferrous Sulfate (Feosol) 325 mg TWICE A DAY ORAL 01/15/21 18:00 04/15/21 17:59 01/20/21 07:58 Glipizide (GlipiZIDE XL) 5 mg BID ORAL 01/15/21 18:00 02/14/21 17:59 01/20/21 07:59 Insulin Aspart (NovoLOG) BEFORE MEALS AND HS SUBQ 01/15/21 21:00 04/15/21 20:59 01/20/21 06:02 Levofloxacin (Levaquin) 500 mg DAILY ORAL 01/16/21 09:00 01/23/21 08:59 01/20/21 07:58 Magnesium Hydroxide (Mom) 30 ml DAILYPRN PRN ORAL Constipation 01/18/21 14:45 02/17/21 14:44 01/18/21 16:27 Metformin HCl (Glucophage) 500 mg TWICE A DAY ORAL 01/15/21 18:00 02/14/21 17:59 01/20/21 07:58 Pantoprazole (Protonix) 40 mg DAILY ORAL 01/16/21 09:00 02/15/21 08:59 01/20/21 07:58 Primidone (Mysoline) 50 mg DAILY ORAL 01/16/21 09:00 02/15/21 08:59 01/20/21 07:58 Tamsulosin HCl (Flomax) 0.4 mg BEDTIME ORAL 01/15/21 21:00 02/14/21 20:59 01/19/21 20:11 Billie Aranda MD Jan 20, 2021 10:10
[2021-01-20 12:00] VITALS: BP 127/84
--- NOTE | 2021-01-20 12:19 | NUR ---
CASE MANAGEMENT:REVIEW 01/20/21 SI: PNEUMONIA. COPD 97.1 75 21 127/84 96% ON 2L/NC WBC+12.5 H/H-10.7/35.9 IS: COLACE PO BID PROTONIX PO QD LEVAQUIN PO QD LOVENOX SQ QD MYSOLINE PO QD SS INSULIN FLOMAX PO QHS ARICEPT PO QHS METFORMIN PO BID GLIPIZIDE PO BID : TELEMETRY STATUS DCP: FROM HOME PLAN: LEVAQUIN X4 MORE DAYS
--- NOTE | 2021-01-20 12:28 | General Progress Note ---
Subjective ROS Limited/Unobtainable: No Constitutional: Reports: malaise, weakness HEENT: Reports: no symptoms Cardiovascular: Reports: no symptoms Respiratory: Reports: cough, shortness of breath Gastrointestinal/Abdominal: Reports: no symptoms Genitourinary: Reports: no symptoms Neurologic/Psychiatric: Reports: no symptoms Endocrine: Reports: no symptoms Hematologic/Lymphatic: Reports: no symptoms Allergies: Coded Allergies: No Known Allergies (Verified , 09/14/07) All Systems: reviewed and negative except above Subjective no events. off bipap on nasal cannula. no fever or chills. no sob. decreased cough. states he feels better. on po abx. Objective Last 24 Hour Vital Signs Date Time Temp Pulse Resp B/P (MAP) Pulse Ox O2 Delivery O2 Flow Rate FiO2 01/20/21 12:00 Nasal Cannula 2.0 Nasal Cannula 2.0 01/20/21 12:00 97.1 75 21 127/84 (98) 96 74 01/20/21 08:00 Nasal Cannula 2.0 Nasal Cannula 2.0 01/20/21 08:00 74 01/20/21 08:00 97.1 75 24 141/77 (98) 96 86 01/20/21 07:19 97 Nasal Cannula 2.0 28 01/20/21 04:00 Nasal Cannula 2.0 Nasal Cannula 2.0 01/20/21 04:00 73 01/20/21 04:00 97.2 86 20 125/73 (90) 98 86 01/20/21 00:00 98.2 77 24 132/82 (99) 98 77 01/20/21 00:00 Nasal Cannula 2.0 Nasal Cannula 2.0 01/20/21 00:00 84 01/19/21 20:00 76 01/19/21 20:00 Nasal Cannula 4.0 Nasal Cannula 2.0 01/19/21 20:00 97.7 77 20 144/72 (96) 97 77 01/19/21 19:22 100 Nasal Cannula 2.0 28 01/19/21 16:00 98.0 76 20 144/86 (105) 97 76 01/19/21 16:00 83 01/19/21 16:00 Nasal Cannula 4.0 Nasal Cannula 2.0 Intake and Output 01/19/21 01/20/21 19:00 07:00 Intake Total 420 ml 1100 ml Output Total 1300 ml 1600 ml Balance -880 ml -500 ml Intake Oral 320 ml IV Total 100 ml 1100 ml Output Urine Total 1300 ml 1600 ml # Bowel Movements 1 Laboratory Tests 01/19/21 20:22: POC Whole Blood Glucose 147H 01/20/21 05:53: POC Whole Blood Glucose 182H 01/20/21 07:35: White Blood Count 12.5H, Red Blood Count 3.89L, Hemoglobin 10.7L, Hematocrit 35.9L, Mean Corpuscular Volume 92, Mean Corpuscular Hemoglobin 27.6, Mean Corpuscular Hemoglobin Concent 29.9L, Red Cell Distribution Width 13.0, Platelet Count 258, Mean Platelet Volume 6.1L, Neutrophils (%) (Auto) 84.3H, Lymphocytes (%) (Auto) 9.0L, Monocytes (%) (Auto) 4.0, Eosinophils (%) (Auto) 2.4, Basophils (%) (Auto) 0.2 01/20/21 11:14: POC Whole Blood Glucose [Pending] Height (Feet): 6 Height (Inches): 0.00 Weight (Pounds): 165 Objective General Appearance: WD/WN, alert, confused EENT: PERRL/EOMI, normal ENT inspection Neck: non-tender, normal alignment Cardiovascular: normal peripheral pulses, normal rate, regular rhythm Respiratory/Chest: chest wall non-tender, lungs clear, normal breath sounds, no respiratory distress, no accessory muscle use Abdomen: normal bowel sounds, non tender, soft, no organomegaly Edema: no edema noted Arm (L), no edema noted Arm (R) 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
[2021-01-20 16:00] VITALS: BP 135/69
--- NOTE | 2021-01-20 16:07 | Pulmonology Progress Note ---
Subjective ROS Limited/Unobtainable: No Constitutional: Denies: fever Gastrointestinal/Abdominal: Reports: no symptoms Allergies: Coded Allergies: No Known Allergies (Verified , 09/14/07) All Systems: reviewed and negative except above Objective Last 24 Hour Vital Signs Date Time Temp Pulse Resp B/P (MAP) Pulse Ox O2 Delivery O2 Flow Rate FiO2 01/20/21 12:00 Nasal Cannula 2.0 Nasal Cannula 2.0 01/20/21 12:00 97.1 75 21 127/84 (98) 96 74 01/20/21 12:00 76 01/20/21 08:00 Nasal Cannula 2.0 Nasal Cannula 2.0 01/20/21 08:00 74 01/20/21 08:00 97.1 75 24 141/77 (98) 96 86 01/20/21 07:19 97 Nasal Cannula 2.0 28 01/20/21 04:00 Nasal Cannula 2.0 Nasal Cannula 2.0 01/20/21 04:00 73 01/20/21 04:00 97.2 86 20 125/73 (90) 98 86 01/20/21 00:00 98.2 77 24 132/82 (99) 98 77 01/20/21 00:00 Nasal Cannula 2.0 Nasal Cannula 2.0 01/20/21 00:00 84 01/19/21 20:00 76 01/19/21 20:00 Nasal Cannula 4.0 Nasal Cannula 2.0 01/19/21 20:00 97.7 77 20 144/72 (96) 97 77 01/19/21 19:22 100 Nasal Cannula 2.0 28 Intake and Output 01/19/21 01/20/21 19:00 07:00 Intake Total 420 ml 1100 ml Output Total 1300 ml 1600 ml Balance -880 ml -500 ml Intake Oral 320 ml IV Total 100 ml 1100 ml Output Urine Total 1300 ml 1600 ml # Bowel Movements 1 Laboratory Tests 01/19/21 20:22: POC Whole Blood Glucose 147H 01/20/21 05:53: POC Whole Blood Glucose 182H 01/20/21 07:35: White Blood Count 12.5H, Red Blood Count 3.89L, Hemoglobin 10.7L, Hematocrit 35.9L, Mean Corpuscular Volume 92, Mean Corpuscular Hemoglobin 27.6, Mean Corpuscular Hemoglobin Concent 29.9L, Red Cell Distribution Width 13.0, Platelet Count 258, Mean Platelet Volume 6.1L, Neutrophils (%) (Auto) 84.3H, Lymphocytes (%) (Auto) 9.0L, Monocytes (%) (Auto) 4.0, Eosinophils (%) (Auto) 2.4, Basophils (%) (Auto) 0.2 01/20/21 11:14: POC Whole Blood Glucose [Pending] Current Medications Medications (Trade) Dose Ordered Sig/Pedro Route PRN Reason Start Time Stop Time Status Last Admin Dose Admin Acetaminophen (Tylenol) 650 mg Q4H PRN ORAL Temp >100.5 01/15/21 17:00 02/14/21 16:59 Al Hydroxide/Mg Hydroxide (Mylanta) 30 ml Q4H PRN ORAL Abdominal cramps 01/15/21 17:00 02/14/21 16:59 Atorvastatin Calcium (Lipitor) 80 mg BEDTIME ORAL 01/15/21 21:00 04/15/21 20:59 01/19/21 20:12 Dextrose (Dextrose 50%) 25 ml Q30M PRN IV Hypoglycemia 01/15/21 17:00 04/15/21 16:59 Dextrose (Dextrose 50%) 50 ml Q30M PRN IV Hypoglycemia 01/15/21 17:00 04/15/21 16:59 Dextrose/Sodium Chloride 1,000 ml @ 100 mls/hr Q10H IV 01/15/21 18:30 02/14/21 18:29 01/20/21 15:53 Docusate Sodium (Colace) 100 mg TWICE A DAY ORAL 01/18/21 18:00 02/17/21 17:59 01/20/21 07:58 Donepezil HCl (Aricept) 5 mg BEDTIME ORAL 01/15/21 21:00 02/14/21 20:59 01/19/21 20:11 Enoxaparin Sodium (Lovenox) 40 mg DAILY SUBQ 01/16/21 09:00 04/16/21 08:59 01/20/21 08:00 Ferrous Sulfate (Feosol) 325 mg TWICE A DAY ORAL 01/15/21 18:00 04/15/21 17:59 01/20/21 07:58 Glipizide (GlipiZIDE XL) 5 mg BID ORAL 01/15/21 18:00 02/14/21 17:59 01/20/21 07:59 Insulin Aspart (NovoLOG) BEFORE MEALS AND HS SUBQ 01/15/21 21:00 04/15/21 20:59 01/20/21 06:02 Levofloxacin (Levaquin) 500 mg DAILY ORAL 01/16/21 09:00 01/23/21 08:59 01/20/21 07:58 Magnesium Hydroxide (Mom) 30 ml DAILYPRN PRN ORAL Constipation 01/18/21 14:45 02/17/21 14:44 01/18/21 16:27 Metformin HCl (Glucophage) 500 mg TWICE A DAY ORAL 01/15/21 18:00 02/14/21 17:59 01/20/21 07:58 Pantoprazole (Protonix) 40 mg DAILY ORAL 01/16/21 09:00 02/15/21 08:59 01/20/21 07:58 Primidone (Mysoline) 50 mg DAILY ORAL 01/16/21 09:00 02/15/21 08:59 01/20/21 07:58 Tamsulosin HCl (Flomax) 0.4 mg BEDTIME ORAL 01/15/21 21:00 02/14/21 20:59 01/19/21 20:11 Assessment/Plan Assessment/Plan Pulmonary Progress Note Subjective ROS Limited/Unobtainable: Yes Constitutional: Reports: no symptoms Gastrointestinal/Abdominal: Reports: no symptoms Allergies: Coded Allergies: No Known Allergies (Verified , 09/14/07) All Systems: reviewed and negative except above Subjective Stable on NC O2, BIPAP PRN Stable VS Objective Vital Signs noted Objective WDWN NAD reduced breath sounds bilaterally without rhonchi or wheeze [id number] without MRG NABS nontender no CCE nonfocal on NC Microbiology noted Laboratory Tests noted 01/18/21 09:17: Arterial Blood pH 7.429, Arterial Blood Partial Pressure CO2 52.1H, Arterial Blood Partial Pressure O2 78.5, Arterial Blood HCO3 33.7H, Arterial Blood Oxygen Saturation 95.0, Arterial Blood Base Excess 8.1H, Colt Test Positive Medications noted Assessment/Plan Assessment acute hypercapnic respiratory failure chronic respiratory failure hypoxemia COPD pulmonary infiltrates pneumonia diabetes hypertension Plan ID follow up oxygen/Bipap as needed taper DVT prophylaxis home meds nutrition as able monitor labs and imaging empiric antibiotics ABG PRN close follow up monitor nutrition impression, plan, and exam edited and reviewed in detail care discussed with RN Jake Raya MD Jan 20, 2021 16:07
--- NOTE | 2021-01-20 19:01 | NUR ---
NURSE HAND-OFF REPORT: Important Events on Shift: none Patient Status: stable Diet: puree moist Pending Orders: Pending Results/Labs: Pending MD notification: Latest Vital Signs: Temperature 97.0 , Pulse 79 , B/P 135 /69 , Respiratory Rate 20 , O2 SAT 99 , Bi-pap, O2 Flow Rate 4.0 . Vital Sign Comment: EKG Rhythm: Sinus Rhythm Rhythm change?: N MD Notified?: - MD Response: Latest Franco Fall Score: 60 Fall Risk: High Risk Safety Measures: Call light Within Reach, Bed Alarm Zone 1, Side Rails Side Rails x2, Bed position Low and Locked. Fall Precautions: Yellow Socks Yellow Gown Door Sign Patient Fall Education Report given to Du SAM.
--- NOTE | 2021-01-20 19:10 | NUR ---
NURSE NOTES: Pt report received from Mila Bowie pt is alert and oriented times 2, no acute change in neuro. pt is showing NSR on cardiac nurse, no acute abnormalities cardiac sunshine. pt is on 2 L NC sating 95% O2, no acute changes in resp. pt bed is low locked armed. call light within reach, bed rails up times 3. will follow plan of care.
[2021-01-20] MEDS ORDERED: Varibar Nectar 240ml MC PRN (19:30)
[2021-01-20] MEDS ORDERED: Varibar Pudding 230ml MC PRN (19:30)
[2021-01-20] MEDS ORDERED: Varibar Honey 250ml MC PRN (19:30)
[2021-01-20] MEDS ORDERED: Varibar Thin Liquid powder 148gm MC PRN (19:30)
--- NOTE | 2021-01-20 19:47 | NUR ---
NURSE HAND-OFF REPORT: Important Events on Shift:[NA] Patient Status: [NA] Diet: [NA] Pending Orders: [NA] Pending Results/Labs:[NA] Pending MD notification:[NA] Latest Vital Signs: Temperature 97.0 , Pulse 79 , B/P 135 /69 , Respiratory Rate 20 , O2 SAT 97 , Bi-pap, O2 Flow Rate 2.0 . Vital Sign Comment: [stable] EKG Rhythm: Sinus Rhythm Rhythm change?: N MD Notified?: - MD Response: Latest Franco Fall Score: 60 Fall Risk: High Risk Safety Measures: Call light Within Reach, Bed Alarm Zone 1, Side Rails Side Rails x2, Bed position Low and Locked. Fall Precautions: Yellow Socks Yellow Gown Door Sign Patient Fall Education Report given to [Neyda Khan RN].
--- NOTE | 2021-01-20 19:50 | NUR ---
NURSE NOTES: Report received from Du Nieves RN. Patient is awake on bed in stable condition. Alert and oriented x 2 per report. nurse monitoring is in place, shows sinus rhythm with no chest pain reported. On oxygen via nasal cannula @ 2Lpm saturating 99%. On CCHO mechanical soft diet. With Murillo catheter in place, drained via gravity with light buzz color urine output. Aspiration precaution maintained and observed. IV site is on left AC G-20 and left forearm g-22 running D5NS @ 100cc/hour that is patent an intact. Safety measures are in place, bed in lowest and locked position, side rails up x 2, call light button and bedside table with in reach, instructed to call for any assistance needed, will continue plan of care.
[2021-01-20 20:00] VITALS: BP 140/75
[2021-01-20] MEDS: Donepezil 5mg Tab ORAL SCH (20:50)
[2021-01-20] MEDS: Tamsulosin 0.4mg cap ORAL SCH (20:50)
[2021-01-20] MEDS: Atorvastatin 80mg tab ORAL SCH (20:51)
--- NOTE | 2021-01-20 20:55 | NUR ---
NURSE NOTES: Blood sugar done, results of 180. No untoward symptoms noted, will give insulin per order.
--- NOTE | 2021-01-20 21:40 | NUR ---
NURSE NOTES: Due medications were given, crush and mixed with apple sauce. No aspiration noted. Will continue plan of care.
[2021-01-21] VITALS: BP 130/62
--- NOTE | 2021-01-21 00:15 | NUR ---
NURSE NOTES: Patient has been sleeping with no complaints made at this time, vitals were stable and no desaturation noted, easy to arouse by calling his name, and able to follow commands, will continue to monitor.
[2021-01-21] MEDS: D5NS 1,000 ML IV SCH ×3 (01:08→23:45)
[2021-01-21 04:00] VITALS: BP 127/65
--- NOTE | 2021-01-21 04:40 | NUR ---
NURSE NOTES: Bed bath done, oral care provided, changed all his linens. Cleansed and applied Optifoam on his sacral for skin protection. Will continue to monitor.
[2021-01-21] MEDS: NovoLOG Insulin Flexpen SUBQ SCH ×4 (05:24→21:04)
--- NOTE | 2021-01-21 07:00 | NUR ---
NURSE NOTES: Received report from FLACO Faye. Patient is AO x2. cardiac monitor in place showing sinus rhythm. On oxygen via nasal cannula @ 2Lpm saturating 98%. IV site is on left AC G-20 and left forearm g-22 running D5NS @ 100cc/hour that is patent an intact. Safety measures are in place, bed in lowest and locked position, side rails up x 2, Call light within reach.
--- NOTE | 2021-01-21 07:32 | NUR ---
NURSE HAND-OFF REPORT: Important Events on Shift: Patient has been resting well the whole shift, no desaturation noted. Patient Status: Patient is awake on bed in stable condition. Plan of care endorsed. Diet: CCHO mechanical soft Pending Orders: none Pending Results/Labs:none Pending MD notification:stable Latest Vital Signs: Temperature 97.7 , Pulse 71 , B/P 127 /65 , Respiratory Rate 23 , O2 SAT 94 , Bi-pap, O2 Flow Rate 2.0 . Vital Sign Comment: Stable EKG Rhythm: Sinus Rhythm Rhythm change?: N MD Notified?: - MD Response: Latest Franco Fall Score: 60 Fall Risk: High Risk Safety Measures: Call light Within Reach, Bed Alarm Zone 1, Side Rails Side Rails x2, Bed position Low and Locked. Fall Precautions: Yellow Socks Yellow Gown Door Sign Patient Fall Education Report given to FLACO Toribio.
[2021-01-21 08:00] VITALS: BP 136/78
[2021-01-21] MEDS: metFORMIN 500mg tab ORAL SCH ×2 (08:34→17:26)
[2021-01-21] MEDS: Docusate 100mg cap ORAL SCH ×2 (08:34→17:26)
[2021-01-21] MEDS: Enoxaparin 40mg Inj SUBQ SCH (08:36)
--- NOTE | 2021-01-21 10:15 | Pulmonology Progress Note ---
Subjective ROS Limited/Unobtainable: No Constitutional: Reports: fever Gastrointestinal/Abdominal: Reports: no symptoms Allergies: Coded Allergies: No Known Allergies (Verified , 09/14/07) All Systems: reviewed and negative except above Subjective off BIPAP more alert reviewed acid base Objective Last 24 Hour Vital Signs Date Time Temp Pulse Resp B/P (MAP) Pulse Ox O2 Delivery O2 Flow Rate FiO2 01/21/21 08:00 Nasal Cannula 2.0 Nasal Cannula 2.0 01/21/21 08:00 77 01/21/21 08:00 97.2 75 22 136/78 (97) 96 01/21/21 04:00 71 01/21/21 04:00 97.7 79 23 127/65 (85) 94 01/21/21 04:00 Nasal Cannula 2.0 Nasal Cannula 2.0 01/21/21 00:00 Nasal Cannula 2.0 Nasal Cannula 2.0 01/21/21 00:00 76 01/21/21 00:00 98.2 70 25 130/62 (84) 99 01/20/21 20:00 97.9 76 24 140/75 (96) 100 01/20/21 20:00 Nasal Cannula 4.0 Nasal Cannula 2.0 01/20/21 20:00 78 01/20/21 19:25 97 Nasal Cannula 2.0 28 01/20/21 16:24 79 20 99 Nasal Cannula 4.0 36 01/20/21 16:00 Nasal Cannula 4.0 Nasal Cannula 2.0 01/20/21 16:00 67 01/20/21 16:00 97.0 78 19 135/69 (91) 100 74 01/20/21 12:00 Nasal Cannula 2.0 Nasal Cannula 2.0 01/20/21 12:00 97.1 75 21 127/84 (98) 96 74 01/20/21 12:00 76 Intake and Output 01/20/21 01/21/21 19:00 07:00 Intake Total 1650 ml 1400 ml Output Total 1500 ml 1700 ml Balance 150 ml -300 ml Intake Oral 550 ml 300 ml IV Total 1100 ml 1100 ml Output Urine Total 1500 ml 1700 ml # Bowel Movements 1 Objective WDWN NAD reduced breath sounds bilaterally without rhonchi or wheeze [id number] without MRG NABS nontender no CCE nonfocal off BIPAP when seen verbal Laboratory Tests 01/20/21 11:14: POC Whole Blood Glucose [Pending] 01/20/21 16:56: POC Whole Blood Glucose [Pending] 01/20/21 20:42: POC Whole Blood Glucose 180H 01/21/21 05:22: POC Whole Blood Glucose [Pending] Current Medications Medications (Trade) Dose Ordered Sig/Pedro Route PRN Reason Start Time Stop Time Status Last Admin Dose Admin Acetaminophen (Tylenol) 650 mg Q4H PRN ORAL Temp >100.5 01/15/21 17:00 02/14/21 16:59 Al Hydroxide/Mg Hydroxide (Mylanta) 30 ml Q4H PRN ORAL Abdominal cramps 01/15/21 17:00 02/14/21 16:59 Atorvastatin Calcium (Lipitor) 80 mg BEDTIME ORAL 01/15/21 21:00 04/15/21 20:59 01/20/21 20:51 Barium Sulfate (Varibar Honey) 250 ml NOW PRN MC RAD 01/20/21 19:30 01/23/21 19:16 Barium Sulfate (Varibar [place]) 240 ml NOW PRN MC RAD 01/20/21 19:30 01/23/21 19:16 Barium Sulfate (Varibar Pudding) 230 ml NOW PRN MC RAD 01/20/21 19:30 01/23/21 19:16 Barium Sulfate (Varibar Thin Liquid powder) 148 gm NOW PRN MC RAD 01/20/21 19:30 01/23/21 19:16 Dextrose (Dextrose 50%) 25 ml Q30M PRN IV Hypoglycemia 01/15/21 17:00 04/15/21 16:59 Dextrose (Dextrose 50%) 50 ml Q30M PRN IV Hypoglycemia 01/15/21 17:00 04/15/21 16:59 Dextrose/Sodium Chloride 1,000 ml @ 100 mls/hr Q10H IV 01/15/21 18:30 02/14/21 18:29 01/21/21 01:08 Docusate Sodium (Colace) 100 mg TWICE A DAY ORAL 01/18/21 18:00 02/17/21 17:59 01/21/21 08:34 Donepezil HCl (Aricept) 5 mg BEDTIME ORAL 01/15/21 21:00 02/14/21 20:59 01/20/21 20:50 Enoxaparin Sodium (Lovenox) 40 mg DAILY SUBQ 01/16/21 09:00 04/16/21 08:59 01/21/21 08:36 Ferrous Sulfate (Feosol) 325 mg TWICE A DAY ORAL 01/15/21 18:00 04/15/21 17:59 01/21/21 08:34 Glipizide (GlipiZIDE XL) 5 mg BID ORAL 01/15/21 18:00 02/14/21 17:59 01/21/21 08:35 Insulin Aspart (NovoLOG) BEFORE MEALS AND HS SUBQ 01/15/21 21:00 04/15/21 20:59 01/21/21 05:24 Levofloxacin (Levaquin) 500 mg DAILY ORAL 01/16/21 09:00 01/24/21 23:59 01/21/21 08:35 Magnesium Hydroxide (Mom) 30 ml DAILYPRN PRN ORAL Constipation 01/18/21 14:45 02/17/21 14:44 01/18/21 16:27 Metformin HCl (Glucophage) 500 mg TWICE A DAY ORAL 01/15/21 18:00 02/14/21 17:59 01/21/21 08:34 Pantoprazole (Protonix) 40 mg DAILY ORAL 01/16/21 09:00 02/15/21 08:59 01/21/21 08:35 Primidone (Mysoline) 50 mg DAILY ORAL 01/16/21 09:00 02/15/21 08:59 01/21/21 08:35 Tamsulosin HCl (Flomax) 0.4 mg BEDTIME ORAL 01/15/21 21:00 02/14/21 20:59 01/20/21 20:50 Assessment/Plan Assessment/Plan acute hypercapnic respiratory failure chronic respiratory failure hypoxemia COPD pulmonary infiltrates pneumonia diabetes hypertension PLAN Decadron off ID follow up oxygen as needed taper DVT prophylaxis home meds nutrition as able monitor labs and imaging empiric antibiotics BIPAP PRN and monitor acid base close follow up transfer to tele monitor nutrition has life 1999 external vent at home d/w as to dc planning impression, plan, and exam edited and reviewed in detail care discussed with Loki Mensah MD Jan 21, 2021 10:15
--- NOTE | 2021-01-21 11:02 | Infectious Diseases Prog Note ---
Assessment/Plan Assessment/Plan antibiotics : levoquin A 1. pneumonia improving covid 19 negative x 2 2. leucocytosis improving 3. COPD 4. pre diabetes P 1. continue levoquin 3 more days 2. will follow up cultures Subjective ROS Limited/Unobtainable: Yes Allergies: Coded Allergies: No Known Allergies (Verified , 09/14/07) Objective Last 24 Hour Vital Signs Date Time Temp Pulse Resp B/P (MAP) Pulse Ox O2 Delivery O2 Flow Rate FiO2 01/21/21 08:00 Nasal Cannula 2.0 Nasal Cannula 2.0 01/21/21 08:00 77 01/21/21 08:00 97.2 75 22 136/78 (97) 96 01/21/21 04:00 71 01/21/21 04:00 97.7 79 23 127/65 (85) 94 01/21/21 04:00 Nasal Cannula 2.0 Nasal Cannula 2.0 01/21/21 00:00 Nasal Cannula 2.0 Nasal Cannula 2.0 01/21/21 00:00 76 01/21/21 00:00 98.2 70 25 130/62 (84) 99 01/20/21 20:00 97.9 76 24 140/75 (96) 100 01/20/21 20:00 Nasal Cannula 4.0 Nasal Cannula 2.0 01/20/21 20:00 78 01/20/21 19:25 97 Nasal Cannula 2.0 28 01/20/21 16:24 79 20 99 Nasal Cannula 4.0 36 01/20/21 16:00 Nasal Cannula 4.0 Nasal Cannula 2.0 01/20/21 16:00 67 01/20/21 16:00 97.0 78 19 135/69 (91) 100 74 01/20/21 12:00 Nasal Cannula 2.0 Nasal Cannula 2.0 01/20/21 12:00 97.1 75 21 127/84 (98) 96 74 01/20/21 12:00 76 Height (Feet): 6 Height (Inches): 0.00 Weight (Pounds): 165 Respiratory/Chest: lungs clear Cardiovascular: normal rate, regular rhythm, no gallop/murmur Abdomen: soft, non tender Extremities: no edema Laboratory Tests Test 01/20/21 11:14 01/20/21 16:56 01/20/21 20:42 01/21/21 05:22 POC Whole Blood Glucose Pending Pending 180 MG/DL (74-106) H Pending Current Medications Medications (Trade) Dose Ordered Sig/Pedro Route PRN Reason Start Time Stop Time Status Last Admin Dose Admin Acetaminophen (Tylenol) 650 mg Q4H PRN ORAL Temp >100.5 01/15/21 17:00 02/14/21 16:59 Al Hydroxide/Mg Hydroxide (Mylanta) 30 ml Q4H PRN ORAL Abdominal cramps 01/15/21 17:00 02/14/21 16:59 Atorvastatin Calcium (Lipitor) 80 mg BEDTIME ORAL 01/15/21 21:00 04/15/21 20:59 01/20/21 20:51 Barium Sulfate (Varibar Honey) 250 ml NOW PRN MC RAD 01/20/21 19:30 01/23/21 19:16 Barium Sulfate (Varibar [place]) 240 ml NOW PRN MC RAD 01/20/21 19:30 01/23/21 19:16 Barium Sulfate (Varibar Pudding) 230 ml NOW PRN MC RAD 01/20/21 19:30 01/23/21 19:16 Barium Sulfate (Varibar Thin Liquid powder) 148 gm NOW PRN MC RAD 01/20/21 19:30 01/23/21 19:16 Dextrose (Dextrose 50%) 25 ml Q30M PRN IV Hypoglycemia 01/15/21 17:00 04/15/21 16:59 Dextrose (Dextrose 50%) 50 ml Q30M PRN IV Hypoglycemia 01/15/21 17:00 04/15/21 16:59 Dextrose/Sodium Chloride 1,000 ml @ 100 mls/hr Q10H IV 01/15/21 18:30 02/14/21 18:29 01/21/21 01:08 Docusate Sodium (Colace) 100 mg TWICE A DAY ORAL 01/18/21 18:00 02/17/21 17:59 01/21/21 08:34 Donepezil HCl (Aricept) 5 mg BEDTIME ORAL 01/15/21 21:00 02/14/21 20:59 01/20/21 20:50 Enoxaparin Sodium (Lovenox) 40 mg DAILY SUBQ 01/16/21 09:00 04/16/21 08:59 01/21/21 08:36 Ferrous Sulfate (Feosol) 325 mg TWICE A DAY ORAL 01/15/21 18:00 04/15/21 17:59 01/21/21 08:34 Glipizide (GlipiZIDE XL) 5 mg BID ORAL 01/15/21 18:00 02/14/21 17:59 01/21/21 08:35 Insulin Aspart (NovoLOG) BEFORE MEALS AND HS SUBQ 01/15/21 21:00 04/15/21 20:59 01/21/21 05:24 Levofloxacin (Levaquin) 500 mg DAILY ORAL 01/16/21 09:00 01/24/21 23:59 01/21/21 08:35 Magnesium Hydroxide (Mom) 30 ml DAILYPRN PRN ORAL Constipation 01/18/21 14:45 02/17/21 14:44 01/18/21 16:27 Metformin HCl (Glucophage) 500 mg TWICE A DAY ORAL 01/15/21 18:00 02/14/21 17:59 01/21/21 08:34 Pantoprazole (Protonix) 40 mg DAILY ORAL 01/16/21 09:00 02/15/21 08:59 01/21/21 08:35 Primidone (Mysoline) 50 mg DAILY ORAL 01/16/21 09:00 02/15/21 08:59 01/21/21 08:35 Tamsulosin HCl (Flomax) 0.4 mg BEDTIME ORAL 01/15/21 21:00 02/14/21 20:59 01/20/21 20:50 Billie Aranda MD Jan 21, 2021 11:02
[2021-01-21 12:00] VITALS: BP 129/86
--- NOTE | 2021-01-21 12:27 | NUR ---
RD ASSESSMENT & RECOMMENDATIONS SEE CARE ACTIVITY FOR COMPLETE ASSESSMENT DAILY ESTIMATED NEEDS: Needs based on Pulmonary, DM 65.6kg 25-35 kcals/kg 9876-7007 total kcals 1-1.5 g protein/kg 66-98 g total protein 25-30 mL/kg 4768-9994 total fluid mLs NUTRITION DIAGNOSIS: Altered nutrition related lab values r/t diabetes as evidenced by elev BG (184-224), elev POC(176-319). CURRENT DIET: CCHO MED/ ms ground PO DIET RECOMMENDATIONS: Liberalized REGULAR diet w/ poor-fair po intake ADDITIONAL RECOMMENDATIONS: 1) Add Glucerna 1 tetra TID 2) Obtain a calibrated bed scale wt as able 3) monitor BG for hypoglycemia w/ poor - fair po intake 4) monitor pulmonary status, ability to eat Now off Bipap, on BC; HANDBAG STITCHER eval pending.
--- NOTE | 2021-01-21 14:45 | Diagnostic Imaging Report ---
Indication: Soreness of breath Technique: XRAY Chest 1v Comparison: 01/18/2021 Findings: COPD with bullous changes in the apices and adjacent scarring again noted. Scarring in the left apex appears somewhat nodular on today's exam which may be related to persistent technique. There is some chronic fibrotic changes in the periphery in the bases. There is increased streaky opacities of the left base compared to prior exam. No pneumothorax. There is unchanged blunting of the left costophrenic sulcus. IMPRESSION: Slight worsening aeration with increased streaky opacities of the left base which may relate to increased subsegmental atelectasis or pneumonia. COPD changes with scarring and bullous changes in the apices. Scarring adjacent to bullous changes in the left apex appears somewhat more nodular on today's exam. Consider further evaluation with CT of the chest as possibility of lung nodule or malignancy cannot be excluded.
[2021-01-21 16:00] VITALS: BP 137/71
[2021-01-21 16:46] LABS: ANION GAP 1 mmol/L (5-15); BLOOD UREA NITROGEN 7 mg/dL (7-18); CALCIUM 8.4 MG/DL (8.5-10.1); CARBON DIOXIDE 40 MMOL/L (21-32); CHLORIDE 107 MMOL/L (98-107); POTASSIUM 3.5 MMOL/L (3.5-5.1); SODIUM 147 MMOL/L (136-145)
--- NOTE | 2021-01-21 16:56 | NUR ---
Speech Pathology Note (Bedside Dysphagia Evaluation) Brief Note: Mr. Hicks is an 86 year old male admitted from clinic to [facility] on 01/15/2021 for COPD exacerbation with bilateral infiltrates. The ABG was abnormal with Ph. 7.22, Co2 68 required to be on BiPAP. The temp was elevated to 100.6 in setting of leukocytosis at 16k. The BUN/Creatine is fair at 11/1.2. BP was 110/60. His code status has been full code. last 18 hours vital signs: 97.2~98.2, Pulse 70~80, BP: 127/65~137/71, Spo2: 94~99 2 liter. Impression/Findings: Mr. Hicks is alert and oriented x2~3. He is fully aware of his lung disease. He stated that his breathing is better than when he came here. His voice is intact. His oral, and pharyngeal mucosa is dry. He has dentures. He drunk about 300cc of juice without s.s of aspiration or clinical concerns. I fed him mushed chicken, and vegetable. he swallowed ok. Mr. Hicks is an 86 yea old male presents with COPD exacerbation with probable community acquired pneumonia. He remains at risk of recurrent pneumonia, worsening of respiratory status with aspiration risk. At this time, he is protecting his air way and tolerating PO diet without clem aspiration. Interpretation/Plan/Recommendation 1. Adequate oropharyngeal motility, laryngeal integrity to protect air way and continue with PO diet with soft grounded diet 2. Goal of care discussion given his severity of COPD with aspiration risk. I will sign off from speech service for now. Please reorder as needed. Alejandra Galindo
--- NOTE | 2021-01-21 17:10 | General Progress Note ---
Subjective ROS Limited/Unobtainable: No Constitutional: Reports: malaise, weakness HEENT: Reports: no symptoms Cardiovascular: Reports: no symptoms Respiratory: Reports: cough, shortness of breath Gastrointestinal/Abdominal: Reports: no symptoms Genitourinary: Reports: no symptoms Neurologic/Psychiatric: Reports: no symptoms Endocrine: Reports: no symptoms Hematologic/Lymphatic: Reports: no symptoms Allergies: Coded Allergies: No Known Allergies (Verified , 09/14/07) All Systems: reviewed and negative except above Subjective no new complaints. remains of bipap. no fevers or chills. no sob. tolerating po. o2 sats stable on nasal cannula. Objective Last 24 Hour Vital Signs Date Time Temp Pulse Resp B/P (MAP) Pulse Ox O2 Delivery O2 Flow Rate FiO2 01/21/21 16:00 Nasal Cannula 2.0 Nasal Cannula 2.0 01/21/21 16:00 70 01/21/21 16:00 97.2 80 21 137/71 (93) 99 01/21/21 12:00 75 01/21/21 12:00 Nasal Cannula 2.0 Nasal Cannula 2.0 01/21/21 12:00 97.3 75 23 129/86 (100) 96 01/21/21 08:00 Nasal Cannula 2.0 Nasal Cannula 2.0 01/21/21 08:00 77 01/21/21 08:00 97.2 75 22 136/78 (97) 96 01/21/21 07:00 96 Nasal Cannula 2.0 28 01/21/21 04:00 71 01/21/21 04:00 97.7 79 23 127/65 (85) 94 01/21/21 04:00 Nasal Cannula 2.0 Nasal Cannula 2.0 01/21/21 00:00 Nasal Cannula 2.0 Nasal Cannula 2.0 01/21/21 00:00 76 01/21/21 00:00 98.2 70 25 130/62 (84) 99 01/20/21 20:00 97.9 76 24 140/75 (96) 100 01/20/21 20:00 Nasal Cannula 4.0 Nasal Cannula 2.0 01/20/21 20:00 78 01/20/21 19:25 97 Nasal Cannula 2.0 28 Intake and Output 01/20/21 01/21/21 19:00 07:00 Intake Total 1650 ml 1400 ml Output Total 1500 ml 1700 ml Balance 150 ml -300 ml Intake Oral 550 ml 300 ml IV Total 1100 ml 1100 ml Output Urine Total 1500 ml 1700 ml # Bowel Movements 1 Laboratory Tests 01/20/21 20:42: POC Whole Blood Glucose 180H 01/21/21 05:22: POC Whole Blood Glucose [Pending] 01/21/21 16:00: Sodium Level 147H, Potassium Level 3.5, Chloride Level 107, Carbon Dioxide Level 40H, Anion Gap 1L, Blood Urea Nitrogen 7, Creatinine 1.0, Estimat Glomerular Filtration Rate > 60, Glucose Level 200H, Calcium Level 8.4L, Magnesium Level 1.6L Height (Feet): 6 Height (Inches): 0.00 Weight (Pounds): 165 Objective General Appearance: WD/WN, alert, confused EENT: PERRL/EOMI, normal ENT inspection Neck: non-tender, normal alignment Cardiovascular: normal peripheral pulses, normal rate, regular rhythm Respiratory/Chest: chest wall non-tender, lungs clear, normal breath sounds, no respiratory distress, no accessory muscle use Abdomen: normal bowel sounds, non tender, soft, no organomegaly Edema: no edema noted Arm (L), no edema noted Arm (R) 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
--- NOTE | 2021-01-21 19:00 | NUR ---
NURSE HAND-OFF REPORT: Important Events on Shift:NA Patient Status: Stable Diet: CCHO Mech soft Pending Orders: NA Pending Results/Labs:NA Pending MD notification:NA Latest Vital Signs: Temperature 97.2 , Pulse 70 , B/P 137 /71 , Respiratory Rate 21 , O2 SAT 99 , Bi-pap, O2 Flow Rate 2.0 . Vital Sign Comment: Stable EKG Rhythm: sr with pac,s Rhythm change?: N MD Notified?: - MD Response: Latest Franco Fall Score: 60 Fall Risk: High Risk Safety Measures: Call light Within Reach, Bed Alarm Zone 1, Side Rails Side Rails x2, Bed position Low and Locked. Fall Precautions: Yellow Socks Yellow Gown Door Sign Patient Fall Education Report given to FLACO [place].
--- NOTE | 2021-01-21 19:01 | NUR ---
NURSE NOTES: Report received from FLACO Toribio. Upon assessment pt appears to be sleeping, with nasal cannula in his mouth. Pt appears disheveled; A/O x 3, PERRLA. Saturating 100% on 2L N/C. 5-lead EKG shows NSR. Left forearm IV running D5 NS at 100 mL. Bed kept in lowest and locked position. Call light within reach. Side rails x3. Will monitor.
[2021-01-21 20:00] VITALS: BP 144/86
[2021-01-21] MEDS: Tamsulosin 0.4mg cap ORAL SCH (21:02)
[2021-01-21] MEDS: Donepezil 5mg Tab ORAL SCH (21:02)
[2021-01-21] MEDS: Atorvastatin 80mg tab ORAL SCH (21:02)
--- NOTE | 2021-01-21 23:26 | NUR ---
NURSE NOTES: Repositioned pt. No cardiopulmonary distress noted. Will monitor.
[2021-01-22] VITALS: BP 132/66
[2021-01-22] MEDS: D5NS 1,000 ML IV SCH (03:48)
[2021-01-22 04:00] VITALS: BP 132/62
--- NOTE | 2021-01-22 05:08 | NUR ---
NURSE NOTES: Left message for MD in regards to low magnesium, elevated sodium with requests to change fluids to D5 1/2 NS at 100mL. Awaiting response. No distress noted. Pt slept comfortably throughout the night.
[2021-01-22] MEDS: NovoLOG Insulin Flexpen SUBQ SCH ×4 (05:34→20:41)
--- NOTE | 2021-01-22 06:15 | NUR ---
NURSE HAND-OFF REPORT: Important Events on Shift: Awaiting MD orders; no changes Patient Status: Stable Diet: CCHO Med Soft Pending Orders: Pending Results/Labs: Pending MD notification: YES; Neymar - Mag/Na+/Transfer Latest Vital Signs: Temperature 97.6 , Pulse 64 , B/P 132 /62 , Respiratory Rate 16 , O2 SAT 97 , Bi-pap, O2 Flow Rate 2.0 . Vital Sign Comment: EKG Rhythm: Sinus Rhythm Rhythm change?: N MD Notified?: - MD Response: Latest Franco Fall Score: 60 Fall Risk: High Risk Safety Measures: Call light Within Reach, Bed Alarm Zone 1, Side Rails Side Rails x2, Bed position Low and Locked. Fall Precautions: Yellow Socks Yellow Gown Door Sign Patient Fall Education Report given to FLACO Sanchez.
--- NOTE | 2021-01-22 07:10 | NUR ---
NURSE NOTES: received patient report from [facility]. patient is on bed asleep. not in acute distress. no acute events reported last night. on 2 Li NC. afebrile, VS stable. on FC, draining well. bed is low and locked for safety. will follow plan of care.
[2021-01-22 07:55] VITALS: BP 151/80
[2021-01-22] MEDS: metFORMIN 500mg tab ORAL SCH ×2 (08:21→17:06)
[2021-01-22] MEDS: Docusate 100mg cap ORAL SCH ×2 (08:21→17:06)
[2021-01-22] MEDS: Enoxaparin 40mg Inj SUBQ SCH (08:28)
--- NOTE | 2021-01-22 11:00 | NUR ---
PT EVALUATION NOTE Patient seen for initial evaluation and treatment initiated. Patient presents with decreased LE strength and balance which impairs patient's ability to perform mobility skills safely. Patient requires mod/max assist for bed mobility. Patient with poor sitting balance and requires mod assist to maintain sitting at the EOB. Patient c/o dizziness in sitting and desaturated to 81% in sitting with O2 via NC @ 2 l/min. Patient will benefit from skilled inpatient PT intervention to increase LE strength and postural stability for improved level of functional mobility, safety and activity tolerance. Recommend discharge to SNF for continued rehab once medically cleared by MD. Addendum: 01/22/21 at 1316 by ALIE ALLISON PT Amended: Links added.
--- NOTE | 2021-01-22 11:08 | Infectious Diseases Prog Note ---
Assessment/Plan Assessment/Plan antibiotics : levoquin A 1. pneumonia improving covid 19 negative x 2 2. leucocytosis improving 3. COPD 4. pre diabetes P 1. continue levoquin 2 more days 2. will follow up cultures Subjective Constitutional: Denies: fever, chills Respiratory: Denies: shortness of breath, dry cough Gastrointestinal/Abdominal: Denies: nausea, vomiting, diarrhea Musculoskeletal: Denies: pain Allergies: Coded Allergies: No Known Allergies (Verified , 09/14/07) Objective Last 24 Hour Vital Signs Date Time Temp Pulse Resp B/P (MAP) Pulse Ox O2 Delivery O2 Flow Rate FiO2 01/22/21 08:00 Nasal Cannula 2.0 Nasal Cannula 2.0 01/22/21 07:55 97.2 84 20 151/80 (103) 97 01/22/21 07:45 75 01/22/21 04:00 Nasal Cannula 2.0 Nasal Cannula 2.0 01/22/21 04:00 97.6 73 16 132/62 (85) 97 01/22/21 04:00 64 01/22/21 00:00 81 01/22/21 00:00 97.0 73 17 132/66 (88) 99 01/22/21 00:00 Nasal Cannula 2.0 Nasal Cannula 2.0 01/21/21 20:00 96.8 80 20 144/86 (105) 99 01/21/21 20:00 78 01/21/21 20:00 Nasal Cannula 2.0 Nasal Cannula 2.0 01/21/21 19:20 100 Nasal Cannula 2.0 28 01/21/21 16:00 Nasal Cannula 2.0 Nasal Cannula 2.0 01/21/21 16:00 70 01/21/21 16:00 97.2 80 21 137/71 (93) 99 01/21/21 12:00 75 01/21/21 12:00 Nasal Cannula 2.0 Nasal Cannula 2.0 01/21/21 12:00 97.3 75 23 129/86 (100) 96 Height (Feet): 6 Height (Inches): 0.00 Weight (Pounds): 165 Respiratory/Chest: lungs clear Cardiovascular: normal rate, regular rhythm, no gallop/murmur Abdomen: soft, non tender Extremities: no edema Laboratory Tests Test 01/21/21 16:00 01/21/21 20:59 01/22/21 05:21 Sodium Level 147 MMOL/L (136-145) H Potassium Level 3.5 MMOL/L (3.5-5.1) Chloride Level 107 MMOL/L (98-107) Carbon Dioxide Level 40 MMOL/L (21-32) H Anion Gap 1 mmol/L (5-15) L Blood Urea Nitrogen 7 mg/dL (7-18) Creatinine 1.0 MG/DL (0.55-1.30) Estimat Glomerular Filtration Rate > 60 mL/min (>60) Glucose Level 200 MG/DL (74-106) H Calcium Level 8.4 MG/DL (8.5-10.1) L Magnesium Level 1.6 MG/DL (1.8-2.4) L POC Whole Blood Glucose 155 MG/DL (74-106) H 159 MG/DL (74-106) H Current Medications Medications (Trade) Dose Ordered Sig/Pedro Route PRN Reason Start Time Stop Time Status Last Admin Dose Admin Acetaminophen (Tylenol) 650 mg Q4H PRN ORAL Temp >100.5 01/15/21 17:00 02/14/21 16:59 Al Hydroxide/Mg Hydroxide (Mylanta) 30 ml Q4H PRN ORAL Abdominal cramps 01/15/21 17:00 02/14/21 16:59 Atorvastatin Calcium (Lipitor) 80 mg BEDTIME ORAL 01/15/21 21:00 04/15/21 20:59 01/21/21 21:02 Barium Sulfate (Varibar Honey) 250 ml NOW PRN MC RAD 01/20/21 19:30 01/23/21 19:16 Barium Sulfate (Varibar Dobson) 240 ml NOW PRN MC RAD 01/20/21 19:30 01/23/21 19:16 Barium Sulfate (Varibar Pudding) 230 ml NOW PRN MC RAD 01/20/21 19:30 01/23/21 19:16 Barium Sulfate (Varibar Thin Liquid powder) 148 gm NOW PRN MC RAD 01/20/21 19:30 01/23/21 19:16 Dextrose (Dextrose 50%) 25 ml Q30M PRN IV Hypoglycemia 01/15/21 17:00 04/15/21 16:59 Dextrose (Dextrose 50%) 50 ml Q30M PRN IV Hypoglycemia 01/15/21 17:00 04/15/21 16:59 Dextrose/Sodium Chloride 1,000 ml @ 100 mls/hr Q10H IV 01/15/21 18:30 02/14/21 18:29 01/22/21 03:48 Docusate Sodium (Colace) 100 mg TWICE A DAY ORAL 01/18/21 18:00 02/17/21 17:59 01/22/21 08:21 Donepezil HCl (Aricept) 5 mg BEDTIME ORAL 01/15/21 21:00 02/14/21 20:59 01/21/21 21:02 Enoxaparin Sodium (Lovenox) 40 mg DAILY SUBQ 01/16/21 09:00 04/16/21 08:59 01/22/21 08:28 Ferrous Sulfate (Feosol) 325 mg TWICE A DAY ORAL 01/15/21 18:00 04/15/21 17:59 01/22/21 08:21 Glipizide (GlipiZIDE XL) 5 mg BID ORAL 01/15/21 18:00 02/14/21 17:59 01/22/21 08:21 Insulin Aspart (NovoLOG) BEFORE MEALS AND HS SUBQ 01/15/21 21:00 04/15/21 20:59 01/22/21 05:34 Levofloxacin (Levaquin) 500 mg DAILY ORAL 01/16/21 09:00 01/24/21 23:59 01/22/21 08:35 Magnesium Hydroxide (Mom) 30 ml DAILYPRN PRN ORAL Constipation 01/18/21 14:45 02/17/21 14:44 01/18/21 16:27 Metformin HCl (Glucophage) 500 mg TWICE A DAY ORAL 01/15/21 18:00 02/14/21 17:59 01/22/21 08:21 Pantoprazole (Protonix) 40 mg DAILY ORAL 01/16/21 09:00 02/15/21 08:59 01/22/21 08:21 Primidone (Mysoline) 50 mg DAILY ORAL 01/16/21 09:00 02/15/21 08:59 01/22/21 08:20 Tamsulosin HCl (Flomax) 0.4 mg BEDTIME ORAL 01/15/21 21:00 02/14/21 20:59 01/21/21 21:02 Billie Aranda MD Jan 22, 2021 11:07
--- NOTE | 2021-01-22 11:31 | Pulmonology Progress Note ---
Subjective ROS Limited/Unobtainable: No Constitutional: Denies: fever, chills Gastrointestinal/Abdominal: Denies: nausea, vomiting, diarrhea Musculoskeletal: Denies: pain Allergies: Coded Allergies: No Known Allergies (Verified , 09/14/07) All Systems: reviewed and negative except above Subjective off BIPAP more alert reviewed acid base Weak reduced po overall Objective Last 24 Hour Vital Signs Date Time Temp Pulse Resp B/P (MAP) Pulse Ox O2 Delivery O2 Flow Rate FiO2 01/22/21 08:00 Nasal Cannula 2.0 Nasal Cannula 2.0 01/22/21 07:55 97.2 84 20 151/80 (103) 97 01/22/21 07:45 75 01/22/21 04:00 Nasal Cannula 2.0 Nasal Cannula 2.0 01/22/21 04:00 97.6 73 16 132/62 (85) 97 01/22/21 04:00 64 01/22/21 00:00 81 01/22/21 00:00 97.0 73 17 132/66 (88) 99 01/22/21 00:00 Nasal Cannula 2.0 Nasal Cannula 2.0 01/21/21 20:00 96.8 80 20 144/86 (105) 99 01/21/21 20:00 78 01/21/21 20:00 Nasal Cannula 2.0 Nasal Cannula 2.0 01/21/21 19:20 100 Nasal Cannula 2.0 28 01/21/21 16:00 Nasal Cannula 2.0 Nasal Cannula 2.0 01/21/21 16:00 70 01/21/21 16:00 97.2 80 21 137/71 (93) 99 01/21/21 12:00 75 01/21/21 12:00 Nasal Cannula 2.0 Nasal Cannula 2.0 01/21/21 12:00 97.3 75 23 129/86 (100) 96 Intake and Output 01/21/21 01/22/21 19:00 07:00 Intake Total 420 ml 1270 ml Output Total 1100 ml 1300 ml Balance -680 ml -30 ml Intake Oral 320 ml 150 ml IV Total 100 ml 1120 ml Output Urine Total 1100 ml 1300 ml Objective WDWN NAD reduced breath sounds bilaterally without rhonchi or wheeze [id number] without MRG NABS nontender no CCE nonfocal off BIPAP when seen verbal Laboratory Tests 01/21/21 16:00: Sodium Level 147H, Potassium Level 3.5, Chloride Level 107, Carbon Dioxide Level 40H, Anion Gap 1L, Blood Urea Nitrogen 7, Creatinine 1.0, Estimat Glomerular Filtration Rate > 60, Glucose Level 200H, Calcium Level 8.4L, Magnesium Level 1.6L 01/21/21 20:59: POC Whole Blood Glucose 155H 01/22/21 05:21: POC Whole Blood Glucose 159H Current Medications Medications (Trade) Dose Ordered Sig/Pedro Route PRN Reason Start Time Stop Time Status Last Admin Dose Admin Acetaminophen (Tylenol) 650 mg Q4H PRN ORAL Temp >100.5 01/15/21 17:00 02/14/21 16:59 Al Hydroxide/Mg Hydroxide (Mylanta) 30 ml Q4H PRN ORAL Abdominal cramps 01/15/21 17:00 02/14/21 16:59 Atorvastatin Calcium (Lipitor) 80 mg BEDTIME ORAL 01/15/21 21:00 04/15/21 20:59 01/21/21 21:02 Barium Sulfate (Varibar Honey) 250 ml NOW PRN MC RAD 01/20/21 19:30 01/23/21 19:16 Barium Sulfate (Varibar Allouez) 240 ml NOW PRN MC RAD 01/20/21 19:30 01/23/21 19:16 Barium Sulfate (Varibar Pudding) 230 ml NOW PRN MC RAD 01/20/21 19:30 01/23/21 19:16 Barium Sulfate (Varibar Thin Liquid powder) 148 gm NOW PRN MC RAD 01/20/21 19:30 01/23/21 19:16 Dextrose (Dextrose 50%) 25 ml Q30M PRN IV Hypoglycemia 01/15/21 17:00 04/15/21 16:59 Dextrose (Dextrose 50%) 50 ml Q30M PRN IV Hypoglycemia 01/15/21 17:00 04/15/21 16:59 Dextrose/Sodium Chloride 1,000 ml @ 100 mls/hr Q10H IV 01/15/21 18:30 02/14/21 18:29 01/22/21 03:48 Docusate Sodium (Colace) 100 mg TWICE A DAY ORAL 01/18/21 18:00 02/17/21 17:59 01/22/21 08:21 Donepezil HCl (Aricept) 5 mg BEDTIME ORAL 01/15/21 21:00 02/14/21 20:59 01/21/21 21:02 Enoxaparin Sodium (Lovenox) 40 mg DAILY SUBQ 01/16/21 09:00 04/16/21 08:59 01/22/21 08:28 Ferrous Sulfate (Feosol) 325 mg TWICE A DAY ORAL 01/15/21 18:00 04/15/21 17:59 01/22/21 08:21 Glipizide (GlipiZIDE XL) 5 mg BID ORAL 01/15/21 18:00 02/14/21 17:59 01/22/21 08:21 Insulin Aspart (NovoLOG) BEFORE MEALS AND HS SUBQ 01/15/21 21:00 04/15/21 20:59 01/22/21 05:34 Levofloxacin (Levaquin) 500 mg DAILY ORAL 01/16/21 09:00 01/24/21 23:59 01/22/21 08:35 Magnesium Hydroxide (Mom) 30 ml DAILYPRN PRN ORAL Constipation 01/18/21 14:45 02/17/21 14:44 01/18/21 16:27 Metformin HCl (Glucophage) 500 mg TWICE A DAY ORAL 01/15/21 18:00 02/14/21 17:59 01/22/21 08:21 Pantoprazole (Protonix) 40 mg DAILY ORAL 01/16/21 09:00 02/15/21 08:59 01/22/21 08:21 Primidone (Mysoline) 50 mg DAILY ORAL 01/16/21 09:00 02/15/21 08:59 01/22/21 08:20 Tamsulosin HCl (Flomax) 0.4 mg BEDTIME ORAL 01/15/21 21:00 02/14/21 20:59 01/21/21 21:02 Assessment/Plan Assessment/Plan acute hypercapnic respiratory failure chronic respiratory failure hypoxemia COPD pulmonary infiltrates pneumonia diabetes hypertension PLAN Decadron off ID follow up oxygen as needed taper DVT prophylaxis home meds nutrition as able monitor labs and imaging empiric antibiotics BIPAP PRN and monitor acid base close follow up transfer to tele monitor nutrition has life 2000 external vent at home d/w as to dc planning impression, plan, and exam edited and reviewed in detail care discussed with Loki Mensah MD Jan 22, 2021 11:31
[2021-01-22 12:00] VITALS: BP 143/89
[2021-01-22] MEDS: D5 1/2NS 1,000 ML IV SCH (14:40)
--- NOTE | 2021-01-22 14:50 | NUR ---
[employer] NOTES INQUIRY FAXED TO [facility], WILL FOLLOW UP WITH ACCEPTANCE.
[2021-01-22 16:00] VITALS: BP 125/71
--- NOTE | 2021-01-22 16:28 | General Progress Note ---
Subjective ROS Limited/Unobtainable: No Constitutional: Reports: malaise, weakness HEENT: Reports: no symptoms Cardiovascular: Reports: no symptoms Respiratory: Reports: cough Gastrointestinal/Abdominal: Reports: poor appetite Genitourinary: Reports: no symptoms Neurologic/Psychiatric: Reports: no symptoms Endocrine: Reports: no symptoms Hematologic/Lymphatic: Reports: no symptoms Allergies: Coded Allergies: No Known Allergies (Verified , 09/14/07) All Systems: reviewed and negative except above Subjective no new complaints. remains of bipap. no fevers or chills. no sob. tolerating po. o2 sats stable on nasal cannula. poor po intake. na trending up. Objective Last 24 Hour Vital Signs Date Time Temp Pulse Resp B/P (MAP) Pulse Ox O2 Delivery O2 Flow Rate FiO2 01/22/21 16:11 82 01/22/21 16:00 Nasal Cannula 2.0 Nasal Cannula 2.0 01/22/21 16:00 97.2 70 20 125/71 (89) 94 01/22/21 12:21 77 01/22/21 12:00 97.2 79 20 143/89 (107) 96 01/22/21 12:00 Nasal Cannula 2.0 Nasal Cannula 2.0 01/22/21 08:00 Nasal Cannula 2.0 Nasal Cannula 2.0 01/22/21 07:55 97.2 84 20 151/80 (103) 97 01/22/21 07:45 75 01/22/21 04:00 Nasal Cannula 2.0 Nasal Cannula 2.0 01/22/21 04:00 97.6 73 16 132/62 (85) 97 01/22/21 04:00 64 01/22/21 00:00 81 01/22/21 00:00 97.0 73 17 132/66 (88) 99 01/22/21 00:00 Nasal Cannula 2.0 Nasal Cannula 2.0 01/21/21 20:00 96.8 80 20 144/86 (105) 99 01/21/21 20:00 78 01/21/21 20:00 Nasal Cannula 2.0 Nasal Cannula 2.0 01/21/21 19:20 100 Nasal Cannula 2.0 28 Intake and Output 01/21/21 01/22/21 19:00 07:00 Intake Total 420 ml 1270 ml Output Total 1100 ml 1300 ml Balance -680 ml -30 ml Intake Oral 320 ml 150 ml IV Total 100 ml 1120 ml Output Urine Total 1100 ml 1300 ml Laboratory Tests 01/21/21 20:59: POC Whole Blood Glucose 155H 01/22/21 05:21: POC Whole Blood Glucose 159H Height (Feet): 6 Height (Inches): 0.00 Weight (Pounds): 165 Objective General Appearance: WD/WN, alert, confused EENT: PERRL/EOMI, normal ENT inspection Neck: non-tender, normal alignment Cardiovascular: normal peripheral pulses, normal rate, regular rhythm Respiratory/Chest: chest wall non-tender, lungs clear, normal breath sounds, no respiratory distress, no accessory muscle use Abdomen: normal bowel sounds, non tender, soft, no organomegaly Edema: no edema noted Arm (L), no edema noted Arm (R) 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
--- NOTE | 2021-01-22 19:11 | NUR ---
NURSE HAND-OFF REPORT: Important Events on Shift:stable Patient Status: full code Diet: regular + glucerna TID per reccs from [employer] Pending Orders: Pending Results/Labs:[] Pending MD notification:[] Latest Vital Signs: Temperature 97.2 , Pulse 82 , B/P 125 /71 , Respiratory Rate 20 , O2 SAT 94 , Bi-pap, O2 Flow Rate 2.0 . Vital Sign Comment: stable EKG Rhythm: Sinus Rhythm Rhythm change?: N MD Notified?: - MD Response: Latest Franco Fall Score: 60 Fall Risk: High Risk Safety Measures: Call light Within Reach, Bed Alarm Zone 2, Side Rails Side Rails x2, Bed position Low and Locked. Fall Precautions: Yellow Socks Yellow Gown Report given to [facility].
[2021-01-22 20:00] VITALS: BP 150/74
[2021-01-22] MEDS: Atorvastatin 80mg tab ORAL SCH (20:40)
[2021-01-22] MEDS: Donepezil 5mg Tab ORAL SCH (20:40)
[2021-01-22] MEDS: Tamsulosin 0.4mg cap ORAL SCH (20:40)
[2021-01-23] VITALS: BP 160/69
[2021-01-23] MEDS: D5 1/2NS 1,000 ML IV SCH ×2 (00:37→10:00)
[2021-01-23 04:00] VITALS: BP 144/68
[2021-01-23] MEDS: NovoLOG Insulin Flexpen SUBQ SCH ×2 (06:12→11:49)
--- NOTE | 2021-01-23 07:04 | NUR ---
NURSE HAND-OFF REPORT: Important Events on Shift: Patient Status: Diet: Pending Orders: Pending Results/Labs: Pending MD notification: Latest Vital Signs: Temperature 97.6 , Pulse 73 , B/P 144 /68 , Respiratory Rate 18 , O2 SAT 100 , Bi-pap, O2 Flow Rate 2.0 . Vital Sign Comment: EKG Rhythm: Sinus Rhythm Rhythm change?: N MD Notified?: - MD Response: Latest Franco Fall Score: 60 Fall Risk: High Risk Safety Measures: Call light Within Reach, Bed Alarm Zone 2, Side Rails Side Rails x2, Bed position Low and Locked. Fall Precautions: Yellow Socks Yellow Gown Report given to .
--- NOTE | 2021-01-23 07:09 | NUR ---
NURSE NOTES: received patient report from [facility]. patient is on bed asleep. not in acute distress. no acute events reported last night. on 2 Li NC. afebrile, VS stable. on FC, draining well. bed is low and locked for safety. will follow plan of care.
[2021-01-23 08:00] VITALS: BP 128/66
[2021-01-23] MEDS: Enoxaparin 40mg Inj SUBQ SCH (08:11)
[2021-01-23] MEDS: Docusate 100mg cap ORAL SCH (08:12)
[2021-01-23] MEDS: metFORMIN 500mg tab ORAL SCH (08:12)
--- NOTE | 2021-01-23 11:32 | Infectious Diseases Prog Note ---
Assessment/Plan Assessment/Plan antibiotics : levoquin A 1. pneumonia improving covid 19 negative x 2 2. leucocytosis improving 3. COPD 4. pre diabetes P 1. continue levoquin 1 more day 2. will follow up cultures Subjective Constitutional: Denies: fever, chills Respiratory: Denies: shortness of breath, dry cough Gastrointestinal/Abdominal: Denies: nausea, vomiting, diarrhea Musculoskeletal: Denies: pain Allergies: Coded Allergies: No Known Allergies (Verified , 09/14/07) Objective Last 24 Hour Vital Signs Date Time Temp Pulse Resp B/P (MAP) Pulse Ox O2 Delivery O2 Flow Rate FiO2 01/23/21 08:00 Nasal Cannula 2.0 Nasal Cannula 2.0 01/23/21 08:00 97.5 17 128/66 (86) 97 01/23/21 07:40 70 01/23/21 07:00 97 Nasal Cannula 2.0 28 01/23/21 04:00 73 01/23/21 04:00 97.6 144/68 (93) 01/23/21 03:50 Nasal Cannula 2.0 Nasal Cannula 2.0 01/23/21 00:00 Nasal Cannula 2.0 Nasal Cannula 2.0 01/23/21 00:00 97.2 18 160/69 (99) 100 01/23/21 00:00 77 01/22/21 20:00 Nasal Cannula 2.0 Nasal Cannula 2.0 01/22/21 20:00 90 01/22/21 20:00 97.2 20 150/74 (99) 99 01/22/21 19:34 98 Nasal Cannula 4.0 36 01/22/21 16:11 82 01/22/21 16:00 Nasal Cannula 2.0 Nasal Cannula 2.0 01/22/21 16:00 97.2 70 20 125/71 (89) 94 01/22/21 12:21 77 01/22/21 12:00 97.2 79 20 143/89 (107) 96 01/22/21 12:00 Nasal Cannula 2.0 Nasal Cannula 2.0 Height (Feet): 6 Height (Inches): 0.00 Weight (Pounds): 165 Respiratory/Chest: lungs clear Cardiovascular: normal rate, regular rhythm, no gallop/murmur Abdomen: soft, non tender Extremities: no edema Current Medications Medications (Trade) Dose Ordered Sig/Pedro Route PRN Reason Start Time Stop Time Status Last Admin Dose Admin Acetaminophen (Tylenol) 650 mg Q4H PRN ORAL Temp >100.5 01/15/21 17:00 02/14/21 16:59 Al Hydroxide/Mg Hydroxide (Mylanta) 30 ml Q4H PRN ORAL Abdominal cramps 01/15/21 17:00 02/14/21 16:59 Atorvastatin Calcium (Lipitor) 80 mg BEDTIME ORAL 01/15/21 21:00 04/15/21 20:59 01/22/21 20:40 Barium Sulfate (Varibar Honey) 250 ml NOW PRN MC RAD 01/20/21 19:30 01/23/21 19:16 Barium Sulfate (Varibar Hersey) 240 ml NOW PRN MC RAD 01/20/21 19:30 01/23/21 19:16 Barium Sulfate (Varibar Pudding) 230 ml NOW PRN MC RAD 01/20/21 19:30 01/23/21 19:16 Barium Sulfate (Varibar Thin Liquid powder) 148 gm NOW PRN MC RAD 01/20/21 19:30 01/23/21 19:16 Dextrose (Dextrose 50%) 25 ml Q30M PRN IV Hypoglycemia 01/15/21 17:00 04/15/21 16:59 Dextrose (Dextrose 50%) 50 ml Q30M PRN IV Hypoglycemia 01/15/21 17:00 04/15/21 16:59 Dextrose/Sodium Chloride 1,000 ml @ 100 mls/hr Q10H IV 01/22/21 14:30 02/21/21 14:29 01/23/21 10:00 Docusate Sodium (Colace) 100 mg TWICE A DAY ORAL 01/18/21 18:00 02/17/21 17:59 01/22/21 17:06 Donepezil HCl (Aricept) 5 mg BEDTIME ORAL 01/15/21 21:00 02/14/21 20:59 01/22/21 20:40 Enoxaparin Sodium (Lovenox) 40 mg DAILY SUBQ 01/16/21 09:00 04/16/21 08:59 01/23/21 08:11 Ferrous Sulfate (Feosol) 325 mg TWICE A DAY ORAL 01/15/21 18:00 04/15/21 17:59 01/23/21 08:11 Glipizide (GlipiZIDE XL) 5 mg BID ORAL 01/15/21 18:00 02/14/21 17:59 01/23/21 08:12 Insulin Aspart (NovoLOG) BEFORE MEALS AND HS SUBQ 01/15/21 21:00 04/15/21 20:59 01/23/21 06:12 Levofloxacin (Levaquin) 500 mg DAILY ORAL 01/16/21 09:00 01/24/21 23:59 01/23/21 08:54 Magnesium Hydroxide (Mom) 30 ml DAILYPRN PRN ORAL Constipation 01/18/21 14:45 02/17/21 14:44 01/18/21 16:27 Metformin HCl (Glucophage) 500 mg TWICE A DAY ORAL 01/15/21 18:00 02/14/21 17:59 01/23/21 08:12 Pantoprazole (Protonix) 40 mg DAILY ORAL 01/16/21 09:00 02/15/21 08:59 01/23/21 08:11 Primidone (Mysoline) 50 mg DAILY ORAL 01/16/21 09:00 02/15/21 08:59 01/23/21 08:11 Tamsulosin HCl (Flomax) 0.4 mg BEDTIME ORAL 01/15/21 21:00 02/14/21 20:59 01/22/21 20:40 Billie Aranda MD Jan 23, 2021 11:32
--- NOTE | 2021-01-23 11:56 | NUR ---
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 NURSE TO CALL REPORT TO [phone]. [facility]
[2021-01-23 12:00] VITALS: BP 144/75
--- NOTE | 2021-01-23 12:37 | NUR ---
*-*DISCHARGE PLANNED*-* PATIENT HAS BEEN ACCEPTED AND WILL BE DISCHARGED TO: [facility] P: [phone] FOR NURSE TO NURSE REPORT ROOM# 401 [facility] TRANSPORTATION SET FOR 3PM S/W STONE [id number].
--- NOTE | 2021-01-23 14:00 | NUR ---
NURSE NOTES: patient is discharge going to [facility] per mds order. ekg monitor removed. per Lizeth rn, keep IV in. irwin in.Belongings checked and signed, all accounted for. wound pictures taken and uploaded. report given to lizeth of [facility], patient is going to bed 401. family member, willow () was informed by rocky prabhakar and this RN of the discharge. family member is agreeable. not in acute distress. awaiting callback @ 1500.
--- NOTE | 2021-01-23 14:19 | General Progress Note ---
Subjective ROS Limited/Unobtainable: No Constitutional: Reports: malaise, weakness HEENT: Reports: no symptoms Cardiovascular: Reports: no symptoms Respiratory: Reports: cough, shortness of breath Gastrointestinal/Abdominal: Reports: no symptoms Genitourinary: Reports: no symptoms Neurologic/Psychiatric: Reports: no symptoms Endocrine: Reports: no symptoms Hematologic/Lymphatic: Reports: no symptoms Allergies: Coded Allergies: No Known Allergies (Verified , 09/14/07) All Systems: reviewed and negative except above Subjective no new complaints. remains of bipap. no fevers or chills. no sob. tolerating po. o2 sats stable on nasal cannula. poor po intake.d/w night rn. no new concerns Objective Last 24 Hour Vital Signs Date Time Temp Pulse Resp B/P (MAP) Pulse Ox O2 Delivery O2 Flow Rate FiO2 01/23/21 12:00 85 01/23/21 12:00 Nasal Cannula 2.0 Nasal Cannula 2.0 01/23/21 12:00 96.8 17 144/75 (98) 96 01/23/21 08:00 Nasal Cannula 2.0 Nasal Cannula 2.0 01/23/21 08:00 97.5 17 128/66 (86) 97 01/23/21 07:40 70 01/23/21 07:00 97 Nasal Cannula 2.0 28 01/23/21 04:00 73 01/23/21 04:00 97.6 144/68 (93) 01/23/21 03:50 Nasal Cannula 2.0 Nasal Cannula 2.0 01/23/21 00:00 Nasal Cannula 2.0 Nasal Cannula 2.0 01/23/21 00:00 97.2 18 160/69 (99) 100 01/23/21 00:00 77 01/22/21 20:00 Nasal Cannula 2.0 Nasal Cannula 2.0 01/22/21 20:00 90 01/22/21 20:00 97.2 20 150/74 (99) 99 01/22/21 19:34 98 Nasal Cannula 4.0 36 01/22/21 16:11 82 01/22/21 16:00 Nasal Cannula 2.0 Nasal Cannula 2.0 01/22/21 16:00 97.2 70 20 125/71 (89) 94 Intake and Output 01/22/21 01/23/21 18:59 06:59 Intake Total 750 ml 833 ml Output Total 1600 ml 1100 ml Balance -850 ml -267 ml Intake Oral 350 ml IV Total 400 ml 833 ml Output Urine Total 1600 ml 1100 ml # Bowel Movements 3 3 Laboratory Tests 01/23/21 11:37: POC Whole Blood Glucose 207H Height (Feet): 6 Height (Inches): 0.00 Weight (Pounds): 165 Objective General Appearance: WD/WN, alert, confused EENT: PERRL/EOMI, normal ENT inspection Neck: non-tender, normal alignment Cardiovascular: normal peripheral pulses, normal rate, regular rhythm Respiratory/Chest: chest wall non-tender, lungs clear, normal breath sounds, no respiratory distress, no accessory muscle use Abdomen: normal bowel sounds, non tender, soft, no organomegaly Edema: no edema noted Arm (L), no edema noted Arm (R) Neurologic: banana expert II-XII grossly normal, alert, responsive Skin: normal pigmentation Assessment/Plan Problem List: (1) Respiratory distress ICD Codes: R06.03 - Respiratory distress SNOMED: 650566022 (2) Pneumonia ICD Codes: J18.9 - Pneumonia SNOMED: 999545313 (3) COPD exacerbation ICD Codes: J44.1 - COPD exacerbation SNOMED: 411061608 Status: stable Assessment/Plan: cont bipap as needed wean as able o2 po abx per id x 2 more days asp precautions encourage po ivf dvt/stress ulcer prophylaxis monitor cxr dvt/stress ulcer prophylaxis monitor BS insulin coverage pt/ot dc planning to Geovanni Walker MD Jan 23, 2021 14:19
--- NOTE | 2021-01-23 15:13 | NUR ---
NURSE NOTES: patient left facility @1510, packet was endorsed to ambulance personnel. not in acute distress.
--- NOTE | 2021-01-23 17:09 | Pulmonology Progress Note ---
Subjective ROS Limited/Unobtainable: No Constitutional: Denies: fever, chills Gastrointestinal/Abdominal: Denies: nausea, vomiting, diarrhea Musculoskeletal: Denies: pain Allergies: Coded Allergies: No Known Allergies (Verified , 09/14/07) All Systems: reviewed and negative except above Subjective off BIPAP more alert reviewed acid base Weak reduced po overall d/w , cannot take care of him at home Objective Last 24 Hour Vital Signs Date Time Temp Pulse Resp B/P (MAP) Pulse Ox O2 Delivery O2 Flow Rate FiO2 01/23/21 12:00 85 01/23/21 12:00 Nasal Cannula 2.0 Nasal Cannula 2.0 01/23/21 12:00 96.8 17 144/75 (98) 96 01/23/21 08:00 Nasal Cannula 2.0 Nasal Cannula 2.0 01/23/21 08:00 97.5 17 128/66 (86) 97 01/23/21 07:40 70 01/23/21 07:00 97 Nasal Cannula 2.0 28 01/23/21 04:00 73 01/23/21 04:00 97.6 144/68 (93) 01/23/21 03:50 Nasal Cannula 2.0 Nasal Cannula 2.0 01/23/21 00:00 Nasal Cannula 2.0 Nasal Cannula 2.0 01/23/21 00:00 97.2 18 160/69 (99) 100 01/23/21 00:00 77 01/22/21 20:00 Nasal Cannula 2.0 Nasal Cannula 2.0 01/22/21 20:00 90 01/22/21 20:00 97.2 20 150/74 (99) 99 01/22/21 19:34 98 Nasal Cannula 4.0 36 Intake and Output 01/22/21 01/23/21 19:00 07:00 Intake Total 783 ml 800 ml Output Total 1600 ml 1100 ml Balance -817 ml -300 ml Intake Oral 350 ml IV Total 433 ml 800 ml Output Urine Total 1600 ml 1100 ml # Bowel Movements 3 3 Objective WDWN NAD reduced breath sounds bilaterally without rhonchi or wheeze [id number] without MRG NABS nontender no CCE nonfocal off BIPAP when seen verbal Laboratory Tests 01/23/21 11:37: POC Whole Blood Glucose 207H Assessment/Plan Assessment/Plan acute hypercapnic respiratory failure chronic respiratory failure hypoxemia COPD pulmonary infiltrates pneumonia diabetes hypertension PLAN transfer to ARU for now ID follow up oxygen as needed DVT prophylaxis home meds nutrition as able monitor labs and imaging empiric antibiotics BIPAP PRN and monitor acid base close follow up transfer to rehab today monitor nutrition has life 2000 external vent at home d/w as to dc planning with plans to optimize impression, plan, and exam edited and reviewed in detail care discussed with Loki Mensah MD Jan 23, 2021 17:09
--- NOTE | 2021-01-24 11:10 | Discharge Summary ---
Discharge Summary Discharge Summary _ Date of admission: 01/15/2021 Date of discharge: 01/23/[address] Beebe History of Present Illness and Brief Hospital Course Mr. Hicks is an 85-year-old male with past medical history of COPD who presented to ED for evaluation of fever and generalized weakness along with lethargy. Patient was hypoxic on arrival and was started on supplemental oxygen immediately. Chest x-ray demonstrated increased infiltrates compared to previous studies. Patient was given IV antibiotics. Patient was admitted to the hospital for further management. Given significant hypoxia, patient was initially placed on BiPAP. Patient was started on Decadron. Patient tested negative for COVID-19 via a rapid test and PCR. Patient's oxygen saturation improved and remained stable off of BiPAP and on low-flow oxygen via nasal cannula. Patient was continued on antibiotics. Patient was medically stable for discharge. The discharge plan was discussed with patient's . could not take care of him at home and patient was discharged to rehabilitation unit on 01/23/2021 in stable condition. Consultants: Infectious disease Dr. Aranda Discharge Condition Improved and stable Final diagnoses Pneumonia COPD exacerbation Leukocytosis Prediabetes Acute hypercapnic respiratory failure Hypertension I have been assigned to dictate discharge summary for this account. I was not involved in the patient's management Gautam Thakur Jan 24, 2021 11:10
== END 2021-01-23 15:10 | disposition short-term general hospital (02) | DRG 190 ==
LOC: EMR 11:36 → 2W 12:42 → EDBEDREQ 13:40
PROC: 5A09457 Assistance with Respiratory Ventilation, 24-96 Consecutive Hours, Continuous Positive Airway Pressure (ICD-10-PCS; principal; 2021-01-15)
DX: J44.0 Chronic obstructive pulmonary disease with (acute) lower respiratory infection (principal); J18.9 Pneumonia, unspecified organism; J96.21 Acute and chronic respiratory failure with hypoxia; J96.22 Acute and chronic respiratory failure with hypercapnia; J44.1 Chronic obstructive pulmonary disease with (acute) exacerbation; Z87.891 Personal history of nicotine dependence; R73.03 Prediabetes
CPT/HCPCS: 36415; 71045; 80048; 80053; 81003; 82550; 82553; 82803; 82962; 83605; 83735; 83880; 84100; 84484; 85007; 85025; 86710; 87040; 93005; 94660; 96361; 96365; 96367; 99285; 99291; J1815; J7030